=== PATIENT | male | born 1935 | race Caucasian/White ===

== ENCOUNTER 2016-12-28 17:38 | Inpatient (IN) | payer MEDICARE, OTHER ==
[~2016-12-28] VITALS: Ht 177.8 cm; Wt 89.4 kg
--- NOTE | 2016-12-28 18:59 | PHYS DOC ---
General Chief Complaint: PSYCH EVALUATION Stated Complaint: PSYCH EVAL Time Seen by MD: 17:59 Source: patient, half-way records Exam Limitations: clinical condition Problems: History of Present Illness Initial Comments Pt is 81/M to ED from [facility]. [place] records indicate for past week pt verbally and physically aggressive ( actually pinned a staff member to the wall during medication administration stating he didn't trust them), threatens to throw things/others out the window, thinks a female he doesn't know is his spouse. Pt meds have been increased, he' s had 1:1 observation, redirection, and speaking with pt . Sent to ED for medical clearance and [facility]. Pt denies pain or complaints. Pt alert/confused, attempts to elope redirects fairly easily in ED. Pt has DNR ED VS: 98, 71, 155/98, 96% RA Timing/Duration: 1 week Severity: severe Modifying Factors: improves with other Associated Symptoms: denies symptoms Allergies: Coded Allergies: tramadol (Verified Allergy, Intermediate, 12/28/16) Past Medical History Medical History: other (HTN, atrial fibrillation, dementia, nonobstructive reflux-associated chronic pyelonephritis, insomnia, "angry", CAD, HLP) Surgical History: other (CABG) Social History Smoker: non-smoker Alcohol: none Drugs: none Review of Systems All Other Systems: Reviewed and Negative (pt confused, accurate ROS unobtainable) Physical Exam General Appearance: no apparent distress Eyes: bilateral eye EOMI, bilateral eye PERRL, bilateral eye normal inspection Ear, Nose, Throat: normal ENT inspection Neck: supple Respiratory: normal breath sounds, no respiratory distress Cardiovascular: normal peripheral pulses, irregularly irregular Gastrointestinal: non tender, soft Extremities: non-tender, normal inspection Neurologic/Psychiatric: 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 1930: Medically clear [facility]. Departure Time of Disposition: 19:30 Disposition: 09 ADMITTED INPATIENT Diagnosis: dementia with behavior disorder Condition: STABLE Additional Instructions: [facility] Prater is accepting. AKASH HENRIQUEZ DO Dec 28, 2016 18:59
[2016-12-28 19:05] LABS: BASO # 0.1 x10^3/uL (0.0-0.2); BASO % 1 % (0-3); EOS # 0.1 x10^3/uL (0.0-0.7); EOS % 1 % (0-3); HEMATOCRIT 38.9 % (39.0-53.0); HEMOGLOBIN 13.2 g/dL (13.0-17.5); LYMPH # 2.5 x10^3/uL (1.0-4.8); LYMPH % 28 % (24-48); MEAN CORPUSCULAR HEMOGLOBIN 29 pg (25-35); MEAN CORPUSCULAR HGB CONC 34 g/dL (31-37); MEAN CORPUSCULAR VOLUME 85 fL (79-100); MONO # 0.8 x10^3/uL (0.0-1.1); MONO % 9 % (0-9); NEUT # 5.6 x10^3uL (1.8-7.7); NEUT % 61 % (31-73); PLATELET COUNT 196 x10^3/uL (140-400); RED CELL DISTRIBUTION WIDTH 13.8 % (11.5-14.5); WHITE BLOOD COUNT 9.1 x10^3/uL (4.0-11.0)
[2016-12-28 19:15] LABS: CALCIUM 9.1 mg/dL (8.5-10.1); CREATININE 1.1 mg/dL (0.7-1.3); GFR 64.6; POTASSIUM 3.8 mmol/L (3.5-5.1)
[2016-12-28 19:17] LABS: BARBITURATES NEG (NEG); BENZODIAZEPINES NEG (NEG); CANNABINOIDS NEG (NEG); COCAINE NEG (NEG); METHADONE NEG (NEG); OPIATES NEG (NEG); PHENCYCLIDINE NEG (NEG)
[2016-12-28 19:18] LABS: CLARITY,URINE CLEAR; COLOR,URINE YELLOW
[2016-12-28 19:19] LABS: BACTERIA,URINE 0 /HPF (0-FEW); BILIRUBIN,URINE NEG (NEG); GLUCOSE,URINE NEG (NEG); NITRITE,URINE NEG (NEG); RBC,URINE 0 /HPF (0-2); SQUAMOUS EPITHELIAL CELL,UR OCC /LPF; UROBILINOGEN,URINE 0.2 mg/dL (0.2 mg/dL); WBC,URINE OCC /HPF (0-4)
[2016-12-28 19:21] LABS: AMPHETAMINE/METHAMPHETAMINE NEG (NEG)
--- NOTE | 2016-12-28 20:29 | ACF ---
Admission Criteria Forms PSYCHIATRIC DISORDERS Clinical Indications for Inpatient Care (Place 'X' for any and all applicable criteria): Ongoing inpatient care may be needed for ANY ONE of the following(1)(2)(3)(4)(6) (7)(8): [ ]I. Danger to self or others not manageable at lower level of care. [ ]II. Grave disability (eg, inability to perform self care necessary at lower level of care) [ ]III. Agitation or inappropriate behavior interfering with care for primary condition (eg, attempting to discontinue lines or drains prematurely, unable to cooperate with respiratory care) [X ]IV. Severe disability or disorder indicated by ALL of the following: [X ]a) Severe behavioral health disorder-related symptoms or condition indicated by ANY ONE of the following: [X ]i) Severe problem with cognition, memory, judgment, or impulse control [ ]ii) Severe clinical manifestations (eg, hallucinations, delusions, other acute psychotic symptoms, malathi, extreme agitation or anxiety) [X ]b) Patient management at lower level of care is not feasible until acute intervention or modification is initiated. Extended stay beyond goal length of stay for the primary condition may be indicated when ANY ONE of the following is present: (1)(2)(3)(4): [ ]a) Patient is a danger to self or others and not manageable at lower level of care. [ ]b) Behavior crisis management, including physical or chemical restraints, is required and is not available at a lower level of care. [ ]c) Behavioral symptoms (e.g., agitation, somnolence, inappropriate behavior) are present, and are not manageable at a lower level of care. [ ]d) Patient cannot understand follow-up treatment and crisis plan. [ ]e) Provider and supports are not sufficiently available at lower level of care. [ ]f) Patient cannot participate (e.g., verify absence of plan for harm) and is in needed of monitoring. The original [facility] content created by [facility] has been revised. The portions of the content which have been revised are identified through the use of italic text or in bold, and [facility] has neither reviewed nor approved the modified material. All other unmodified content is copyright [facility] [employer]. Please see references footnoted in the original [facility] edition 2016 Admission Criteria Met?: Yes JUDY MEJIA Dec 28, 2016 20:29
[2016-12-28] MEDS ORDERED: MELA3TAB2 PO (20:48)
[2016-12-28] MEDS ORDERED: ALBU18HF IH (20:48)
[2016-12-28] MEDS ORDERED: POTA10CA53 PO (20:48)
[2016-12-28] MEDS ORDERED: ARIP5TAB13 PO (20:48)
[2016-12-28] MEDS ORDERED: MEMA10TA PO (20:48)
[2016-12-28] MEDS ORDERED: LISI-334 PO (20:48)
[2016-12-28] MEDS ORDERED: TORS20TA2 PO (20:48)
[2016-12-28] MEDS ORDERED: RANI150C PO (20:48)
[2016-12-28] MEDS ORDERED: AMLO2.5T2 PO (20:48)
[2016-12-28] MEDS ORDERED: NITR0.4T SL (20:48)
[2016-12-28] MEDS ORDERED: DONE10TA61 PO (20:48)
[2016-12-28] MEDS ORDERED: LORA1TAB PO (20:48)
[2016-12-28] MEDS ORDERED: SERT100T PO (20:48)
[2016-12-28] MEDS ORDERED: CARV12.52 PO (20:48)
[2016-12-28] MEDS ORDERED: MAG HYDROX/AL HYDROX/SIMETH 30 ML ORAL.SUSP PO PRN (21:15)
[2016-12-28] MEDS ORDERED: NITROGLYCERIN SUBLINGUAL 0.4 MG BOTTLE OF 25. SL PRN (21:15)
[2016-12-28] MEDS ORDERED: ALBUTEROL SULFATE 8GM INHALER. IH PRN (21:15)
[2016-12-28] MEDS ORDERED: METHYL SALICYLATE/MENTHOL TOPICAL OINTMENT 29GM TUBE. TP PRN (21:15)
[2016-12-28] MEDS ORDERED: MAGNESIUM HYDROXIDE 2,400 MG/30 ML ORAL.SUSP. PO PRN (21:15)
[2016-12-28] MEDS ORDERED: ALBUTEROL SULFATE 2.5 MG/3 ML NEBU. NEB PRN (21:30)
[2016-12-28] MEDS ORDERED: ARIPiprazole 5 MG TABLET PO SCH (22:00)
[2016-12-28] MEDS: DONEPEZIL HCL 10 MG TABLET PO SCH (22:15)
[2016-12-28] MEDS: FAMOTIDINE 20 MG TABLET PO SCH (22:15)
[2016-12-28] MEDS: MELATONIN 3 MG TABLET PO SCH (22:15)
[2016-12-28] MEDS: MEMANTINE 10 MG TABLET. PO SCH (22:15)
--- NOTE | 2016-12-28 23:33 | EKG ---
[address] [address] Test Date: 2016-12-28 Test Time: 18:05:13 Pat Name: BJORN WALTER Department: Room: [facility] Gender: M [employer] Operator: FABIAN : 1935 Requested By: AKASH HENRIQUEZ Order Number: [id number] Reading MD: Shar Scott Measurements Intervals [place] Rate: 70 P: AL: QRS: 20 QRSD: 108 T: -6 QT: 432 QTc: 470 Interpretive Statements PRIOR INFERIOR INFARCT ATRIAL FIBRILLATION WITH CONTROLLED VENTRICULAR RESPONSE Electronically Signed On 12-31-2016 10:01:26 CDT by Shar Scott
[2016-12-29 06:21] VITALS: BP 182/86
[2016-12-29] MEDS: amLODIPine BESYLATE 2.5 MG TABLET PO SCH (08:45)
[2016-12-29] MEDS: CARVEDILOL 12.5 MG TABLET PO SCH ×2 (08:45→17:09)
[2016-12-29] MEDS: SERTRALINE 100 MG TABLET. PO SCH (08:45)
[2016-12-29] MEDS: FAMOTIDINE 20 MG TABLET PO SCH ×2 (08:45→17:09)
[2016-12-29] MEDS: MEMANTINE 10 MG TABLET. PO SCH ×2 (08:45→20:30)
[2016-12-29] MEDS: POTASSIUM CHLORIDE 10 MEQ CAPSULE.ER. PO SCH (08:46)
[2016-12-29] MEDS: LISINOPRIL 20 MG TABLET PO SCH ×2 (08:46→20:30)
[2016-12-29] MEDS: TORSEMIDE 20 MG TABLET. PO SCH (08:46)
[2016-12-29 15:42] VITALS: BP 178/88
[2016-12-29] MEDS: LORazepam 1 MG TABLET PO PRN (17:21)
[2016-12-29 19:13] LABS: T3 TOTAL 88 ng/dL (71-180); THYROXINE 6.1 ug/dL (4.5-12.0)
[2016-12-29] MEDS: DONEPEZIL HCL 10 MG TABLET PO SCH (20:31)
[2016-12-29] MEDS: MELATONIN 3 MG TABLET PO SCH (20:31)
[2016-12-29] MEDS: QUEtiapine 25 MG TABLET. PO SCH (20:32)
--- NOTE | 2016-12-29 20:35 | PDOC ---
Exam Guru Demential Exam: Guru Note: Please also refer to the separate dictated note~for this date of service dictated separately.~Patient seen individually. Discussed the patient with Nursing staff reviewed the chart.~Reviewed interim history and current functioning. Reviewed vital signs,~Labs/ Radiology~and current medications noted below. Continue current treatment with the changes noted in the dictated addendum note Assessment: Vital Signs: Vital Signs Date Time Temp Pulse Resp B/P Pulse Ox O2 Delivery O2 Flow Rate FiO2 12/29/16 20:30 70 178/88 12/29/16 15:42 97.1 17 97 12/28/16 19:11 Room Air I&O Intake and Output 12/29/16 07:00 Intake Total 120 ml Balance 120 ml Intake Oral 120 ml Current Medications: Meds: Current Medications Acetaminophen (Tylenol) 650 mg PRN Q6HRS PRN PO MILD PAIN / TEMP; Start at 21:15 Multi-Ingredient Ointment (Analgesic [place]) 1 balod PRN QID PRN TP MUSCLE PAIN; Start 12/28/16 at 21:15 Al Hydroxide/Mg Hydroxide (Mylanta Plus Xs) 15 ml PRN AFTMEALHC PRN PO DYSPEPSIA; Start 12/28/16 at 21:15 Magnesium Hydroxide (Milk Of Magnesia) 2,400 mg PRN QHS PRN PO CONSTIPATION; Start 12/28/16 at 21:15 Aripiprazole (Abilify) 5 mg QHS PO Last administered on 12/28/16 22:15; Start 12/28/16 at 22:00; Stop 12/29/16 at 19:06; Status DC Donepezil HCl (Aricept) 10 mg QHS PO Last administered on 12/29/16 20:31; Start 12/28/16 at 22:00 Lorazepam (Ativan) 1 mg TID PRN PRN PO ANXIETY / AGITATION Last administered on 12/29/16 17:21; Start 12/28/16 at 21:15 Melatonin 3 mg QHS PO Last administered on 12/29/16 20:31; Start 12/28/16 at 22 :00 Memantine (Namenda) 10 mg BID PO Last administered on 12/29/16 20:30; Start at 22:00 Sertraline HCl (Zoloft) 100 mg DAILY PO Last administered on 12/29/16 08:45; Start 12/29/16 at 09:00 Albuterol Sulfate (Ventolin Hfa) 2 puff PRN Q4HRS PRN IH SHORTNESS OF BREATH; Start 12/28/16 at 21:15; Status UNV Amlodipine Besylate (Norvasc) 2.5 mg DAILY PO Last administered on 12/29/16 08: 45; Start 12/29/16 at 09:00 Carvedilol (Coreg) 12.5 mg BIDWMEALS PO Last administered on 12/29/16 17:09; Start 12/29/16 at 08:00 Lisinopril (Prinivil) 20 mg BID PO Last administered on 12/29/16 20:30; Start 12/29/16 at 09:00 Nitroglycerin (Nitrostat) 0.4 mg PRN Q5MIN PRN SL CHEST PAIN; Start 12/28/16 at 21:15 Potassium Chloride (Micro-K) 10 meq DAILY PO Last administered on 12/29/16 08: 46; Start 12/29/16 at 09:00 Torsemide (Demadex) 20 mg DAILY PO Last administered on 12/29/16 08:46; Start 12/29/16 at 09:00 Famotidine (Pepcid) 20 mg BIDBFRMEAL PO Last administered on 12/29/16 17:09; Start 12/28/16 at 22:00 Albuterol Sulfate (Ventolin) 2.5 mg PRN Q4HRS PRN NEB SHORTNESS OF BREATH; Start 12/28/16 at 21:30 Quetiapine Fumarate (SEROquel) 12.5 mg BID PO Last administered on 12/29/16 20: 32; Start 12/29/16 at 21:00 Active Scripts Active Reported Abilify (Aripiprazole) 5 Mg Tablet 5 Mg PO QHS Zoloft (Sertraline Hcl) 100 Mg Tablet 100 Mg PO DAILY Lorazepam 1 Mg Tablet 1 Mg PO TID PRN PRN Nitrostat (Nitroglycerin) 0.4 Mg Tab.subl 0.4 Mg SL PRN Q5MIN PRN May Repeat x 3 doses, Notify PCP if Chest pain is unresolved Ventolin Hfa Inhaler (Albuterol Sulfate) 18 Gm Hfa.aer.ad 2 Puff IH PRN Q4HRS PRN Ranitidine Hcl 150 Mg Capsule 150 Mg PO BIDBFRMEAL Klor-Con Sprinkle (Potassium Chloride) 10 Meq Capsule.er 10 Meq PO DAILY Torsemide 20 Mg Tablet 20 Mg PO DAILY Norvasc (Amlodipine Besylate) 2.5 Mg Tablet 2.5 Mg PO DAILY Namenda (Memantine Hcl) 10 Mg Tablet 10 Mg PO BID Carvedilol 12.5 Mg Tablet 12.5 Mg PO BID Lisinopril 20 Mg Tablet 20 Mg PO BID Melatonin 3 Mg Tablet 3 Mg PO QHS Aricept (Donepezil Hcl) 10 Mg Tablet 10 Mg PO QHS Diagnosis: Problems: (1) Dementia with behavioral disturbance WOO GALINDO MD December 29, 2016 20:35
[2016-12-30 06:23] VITALS: BP 152/84
[2016-12-30] MEDS: LISINOPRIL 20 MG TABLET PO SCH ×2 (08:27→20:07)
[2016-12-30] MEDS: SERTRALINE 100 MG TABLET. PO SCH (08:27)
[2016-12-30] MEDS: TORSEMIDE 20 MG TABLET. PO SCH (08:27)
[2016-12-30] MEDS: QUEtiapine 25 MG TABLET. PO SCH ×2 (08:27→20:07)
[2016-12-30] MEDS: FAMOTIDINE 20 MG TABLET PO SCH ×2 (08:27→16:07)
[2016-12-30] MEDS: amLODIPine BESYLATE 2.5 MG TABLET PO SCH (08:28)
[2016-12-30] MEDS: CARVEDILOL 12.5 MG TABLET PO SCH ×2 (08:29→16:07)
[2016-12-30] MEDS: MEMANTINE 10 MG TABLET. PO SCH ×2 (08:29→20:07)
[2016-12-30] MEDS: POTASSIUM CHLORIDE 10 MEQ CAPSULE.ER. PO SCH (08:32)
--- NOTE | 2016-12-30 10:08 | HP ---
ADMIT DATE: 12/29/2016 IDENTIFYING DATA: The patient is a 81-year-old male referred to us from [facility] by Dr. Riccardo Adhikari, his primary care physician on account of being verbally aggressive after the patient pinned a staff member to the wall during medication administration because he did not trust them. He was threatening to throw them out of the window, thinks a female patient is his . He has been increasingly agitated, aggressive, disruptive, dangerous, delusional, having failed outpatient psychiatric intervention. He is referred for inpatient psychiatric stabilization consequent to his dementia with delusions. CHIEF COMPLAINT: "I need to get out of here." The patient was banging the exit door, paranoid, delusional, restless, hyperverbal the evening of 12/29/2016 as I met with him. HISTORY OF PRESENT ILLNESS: The patient has a history of dementia, Alzheimer's vascular type. He has been residing at the [facility] for some time and has been increasingly paranoid, delusional recently as above with marked mood lability, dangerous behaviors which are extremely impulsive and explosive. No clear symptoms of bipolar disorder, suicidal or homicidal ideation other than as noted above. PAST PSYCHIATRIC HISTORY: As above. PAST MEDICAL HISTORY: Coronary artery disease, coronary artery bypass graft, hyperlipidemia, hypertension, atrial fibrillation, nonobstructive reflux with associated chronic pyelonephritis. ALLERGIES: Ultram. CODE STATUS: DNR. DIET: Regular, takes his medications whole, but probably need to be hidden. CURRENT PSYCHOTROPICS: Zoloft 100 mg a day, Abilify 5 mg a day, Aricept 10 mg a day, melatonin 3 mg at bedtime, Namenda 10 b.i.d., Ativan 1 mg t.i.d. p.r.n. anxiety. FAMILY HISTORY: Noncontributory. SOCIAL HISTORY: No alcohol, drug abuse, physical, sexual or elder abuse history is noted. Not known to be a perpetrator. MENTAL STATUS EXAMINATION: The patient was seen individually evening of 12/29/2016. He is oriented to himself, anxious, restless, delusional, suspicious, banging on the door. Insight, judgment, recent and remote memory, attention, concentration, fund of knowledge poor, consistent with his diagnosis. VITAL SIGNS: Temperature afebrile, BP 182/86, pulse 70, respirations 18, O2 sats 98%. IMPRESSION: Major neurocognitive disorder, Alzheimer, vascular with depression, delusion, behavioral disturbance; anxiety disorder, unspecified; impulse control disorder, unspecified. Rest diagnoses as above. PLAN: Admit to the geropsychiatry unit at [facility]. I will see the patient daily individually from a psychiatric standpoint, medical followup with Dr. Khan/Dr. Betancourt. We will go ahead and change the Abilify to Seroquel 12.5 mg twice a day. Maintain the rest of his psychotropics. Consider Depakote as a mood stabilizer and we will gradually reduce the Ativan p.r.n. once he stabilizes on the rest of his psychotropics. Further changes will be determined after baseline assessment. MAN Frederick GALINDO MD DR: JOCELYN/rhea JOB#: [id number] / [id number]
[2016-12-30] MEDS ORDERED: CHOLECALCIFEROL (VITAMIN D3) 50,000 UNIT CAPSULE PO SCH (12:00)
[2016-12-30] MEDS ORDERED: CYANOCOBALAMIN (VITAMIN B-12) 1,000 MCG/ML VIAL IM SCH (12:30)
--- NOTE | 2016-12-30 13:00 | HP ---
ADMIT DATE: 12/28/2016 REASON FOR ADMISSION TO SENIOR BEHAVIORAL UNIT: The patient is a 81-year-old male who came from [facility] where he had been admitted on 12/18/2016. Apparently, he has been verbally aggressive and pinned staff members to the wall during medical administration because he did not trust them; threatening to throw them out of the window and identifying another resident as his . He has had medication increased and placed one-on-one care and redirected. PAST MEDICAL HISTORY: Hypertension, atrial fibrillation, dementia, reflux, insomnia, irritability and anger, and mixed hyperlipidemia. He also has a history of coronary artery disease with history of bypass. ALLERGIES: TRAMADOL. MEDICATIONS: On 4:30 Ativan IM was ordered and remainder of his medications are not new. SOCIAL HISTORY: The patient was queried about social history. He states he has been living at this current house he lives in for last 3 months. The patient states he wears glasses. Smokes very little tobacco. No alcohol. 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 REVIEW OF SYSTEMS: The patient was queried in different ways about aches and pains, shortness of breath, chest pain, urinary or any type of discomfort and he denies. OBJECTIVE: VITAL SIGNS: Blood pressure 154/84, pulse 64, temperature 96.1, O2 sat 97% on room air, height 70 inches, and weight 195.1 pounds. GENERAL: A 81-year-old in no acute distress. The patient's vision is impaired. Without glasses he is 20/100. HEENT: TMs were intact. Nose is patent. Throat clear. NECK: Supple without adenopathy. There are no carotid bruits. LUNGS: Clear to auscultation. CARDIOVASCULAR: An irregular rhythm and rate. Slow rhythm however. ABDOMEN: Soft and nontender. EXTREMITIES: Without edema. NEUROLOGIC: As stated his vision is not good. Pupils were equal, round, and react to light. The patient could not follow extraocular muscle instructions. Facial muscles are intact. Tongue is midline. He has adequate gag. Shoulder shrug is normal. Event Staff is normal, could not really follow [id number] or rapid alternating movements. Reflexes are 2+/4. Mental status confused, but calm and cooperative. MUSCULOSKELETAL: His gait is somewhat unsteady. He does pass to get up and go test. LABORATORY DATA: Normal CBC, slightly low iron of 48, elevated hyperlipidemia, low vitamin B of 8.4, B12 368, and TSH 5.645. RPR nonreactive. ASSESSMENT: 1. Subclinical hypothyroidism. 2. Mild iron deficiency. 3. Hyperlipidemia. 4. Borderline low B12. Recent lecture I attended recommended treatment of a level less than 400. 5. Behavior disturbance, fall risk. PLAN: Treat his medical conditions. Replace his vitamin B12 and vitamin D and continue to monitor. NASIR PETIT DO DR: PAXTON/rhea JOB#: [id number] / [id number]
[2016-12-30] MEDS: CHOLECALCIFEROL (VITAMIN D3) 50,000 UNIT CAPSULE PO SCH (13:32)
[2016-12-30 15:51] VITALS: BP 158/83
[2016-12-30] MEDS: PRENATAL MULTIVITAMIN TABLET. PO SCH (16:07)
[2016-12-30] MEDS: MELATONIN 3 MG TABLET PO SCH (20:06)
[2016-12-30] MEDS: DONEPEZIL HCL 10 MG TABLET PO SCH (20:06)
[2016-12-30] MEDS: ATORVASTATIN CALCIUM 20 MG TABLET PO SCH (20:17)
--- NOTE | 2016-12-30 21:10 | PDOC ---
Exam Guru Demential Exam: Guru Note: Please also refer to the separate dictated note~for this date of service dictated separately.~Patient seen individually. Discussed the patient with Nursing staff reviewed the chart.~Reviewed interim history and current functioning. Reviewed vital signs,~Labs/ Radiology~and current medications noted below. Continue current treatment with the changes noted in the dictated addendum note Assessment: Vital Signs: Vital Signs Date Time Temp Pulse Resp B/P Pulse Ox O2 Delivery O2 Flow Rate FiO2 12/30/16 20:07 69 158/83 12/30/16 15:51 97.7 20 97 12/28/16 19:11 Room Air I&O Intake and Output 12/30/16 07:00 Intake Total 560 ml Balance 560 ml Intake Oral 560 ml # Voids 1 Current Medications: Meds: Current Medications Acetaminophen (Tylenol) 650 mg PRN Q6HRS PRN PO MILD PAIN / TEMP; Start at 21:15 Multi-Ingredient Ointment (Analgesic [place]) 1 baldo PRN QID PRN TP MUSCLE PAIN; Start 12/28/16 at 21:15 Al Hydroxide/Mg Hydroxide (Mylanta Plus Xs) 15 ml PRN AFTMEALHC PRN PO DYSPEPSIA; Start 12/28/16 at 21:15 Magnesium Hydroxide (Milk Of Magnesia) 2,400 mg PRN QHS PRN PO CONSTIPATION; Start 12/28/16 at 21:15 Aripiprazole (Abilify) 5 mg QHS PO Last administered on 12/28/16 22:15; Start 12/28/16 at 22:00; Stop 12/29/16 at 19:06; Status DC Donepezil HCl (Aricept) 10 mg QHS PO Last administered on 12/30/16 20:06; Start 12/28/16 at 22:00 Lorazepam (Ativan) 1 mg TID PRN PRN PO ANXIETY / AGITATION Last administered on 12/29/16 17:21; Start 12/28/16 at 21:15 Melatonin 3 mg QHS PO Last administered on 12/30/16 20:06; Start 12/28/16 at 22 :00 Memantine (Namenda) 10 mg BID PO Last administered on 12/30/16 20:07; Start at 22:00 Sertraline HCl (Zoloft) 100 mg DAILY PO Last administered on 12/30/16 08:27; Start 12/29/16 at 09:00 Albuterol Sulfate (Ventolin Hfa) 2 puff PRN Q4HRS PRN IH SHORTNESS OF BREATH; Start 12/28/16 at 21:15; Status UNV Amlodipine Besylate (Norvasc) 2.5 mg DAILY PO Last administered on 12/30/16 08: 28; Start 12/29/16 at 09:00 Carvedilol (Coreg) 12.5 mg BIDWMEALS PO Last administered on 12/30/16 16:07; Start 12/29/16 at 08:00 Lisinopril (Prinivil) 20 mg BID PO Last administered on 12/30/16 20:07; Start 12/29/16 at 09:00 Nitroglycerin (Nitrostat) 0.4 mg PRN Q5MIN PRN SL CHEST PAIN; Start 12/28/16 at 21:15 Potassium Chloride (Micro-K) 10 meq DAILY PO Last administered on 12/30/16 08: 32; Start 12/29/16 at 09:00 Torsemide (Demadex) 20 mg DAILY PO Last administered on 12/30/16 08:27; Start 12/29/16 at 09:00 Famotidine (Pepcid) 20 mg BIDBFRMEAL PO Last administered on 12/30/16 16:07; Start 12/28/16 at 22:00 Albuterol Sulfate (Ventolin) 2.5 mg PRN Q4HRS PRN NEB SHORTNESS OF BREATH; Start 12/28/16 at 21:30 Quetiapine Fumarate (SEROquel) 12.5 mg BID PO Last administered on 12/30/16 20: 07; Start 12/29/16 at 21:00 Prenat Multivit/ Regino Ramirez/Iron/Folic Ac (Multivitamin ) 1 tab DAILYBFRSUP PO Last administered on 12/30/16 16:07; Start 12/30/16 at 17:00 Vitamin D (Vitamin D3) 50,000 unit WEEKLY PO ; Start 12/30/16 at 12:00; Stop 12/30 at 12:10; Status DC Cyanocobalamin (Vitamin B-12) 1,000 mcg [id number] IM Last administered on 13:32; Start 12/30/16 at 12:30 Vitamin D (Vitamin D3) 50,000 unit WEEKLY PO Last administered on 12/30/16 13: 32; Start 12/30/16 at 12:30 Levothyroxine Sodium (Synthroid) 25 mcg DAILY07 PO ; Start 12/31/16 at 07:00 Atorvastatin Calcium (Lipitor) 20 mg QHS PO Last administered on 12/30/16 20:17 ; Start 12/30/16 at 21:00 Active Scripts Active Reported Abilify (Aripiprazole) 5 Mg Tablet 5 Mg PO QHS Zoloft (Sertraline Hcl) 100 Mg Tablet 100 Mg PO DAILY Lorazepam 1 Mg Tablet 1 Mg PO TID PRN PRN Nitrostat (Nitroglycerin) 0.4 Mg Tab.subl 0.4 Mg SL PRN Q5MIN PRN May Repeat x 3 doses, Notify PCP if Chest pain is unresolved Ventolin Hfa Inhaler (Albuterol Sulfate) 18 Gm Hfa.aer.ad 2 Puff IH PRN Q4HRS PRN Ranitidine Hcl 150 Mg Capsule 150 Mg PO BIDBFRMEAL Klor-Con Sprinkle (Potassium Chloride) 10 Meq Capsule.er 10 Meq PO DAILY Torsemide 20 Mg Tablet 20 Mg PO DAILY Norvasc (Amlodipine Besylate) 2.5 Mg Tablet 2.5 Mg PO DAILY Namenda (Memantine Hcl) 10 Mg Tablet 10 Mg PO BID Carvedilol 12.5 Mg Tablet 12.5 Mg PO BID Lisinopril 20 Mg Tablet 20 Mg PO BID Melatonin 3 Mg Tablet 3 Mg PO QHS Aricept (Donepezil Hcl) 10 Mg Tablet 10 Mg PO QHS Diagnosis: Problems: (1) Dementia with behavioral disturbance WOO GALINDO MD December 30, 2016 21:10
[2016-12-30] MEDS: LORazepam 1 MG TABLET PO PRN (22:49)
[2016-12-30] MEDS: ACETAMINOPHEN 325 MG TABLET PO PRN (22:50)
[2016-12-31] MEDS: LEVOTHYROXINE 25 MCG TABLET. PO SCH (05:55)
[2016-12-31 06:22] VITALS: BP 184/92
[2016-12-31] MEDS: POTASSIUM CHLORIDE 10 MEQ CAPSULE.ER. PO SCH (08:14)
[2016-12-31] MEDS: SERTRALINE 100 MG TABLET. PO SCH (08:15)
[2016-12-31] MEDS: amLODIPine BESYLATE 2.5 MG TABLET PO SCH (08:15)
[2016-12-31] MEDS: QUEtiapine 25 MG TABLET. PO SCH ×2 (08:15→20:07)
[2016-12-31] MEDS: MEMANTINE 10 MG TABLET. PO SCH ×2 (08:15→20:06)
[2016-12-31] MEDS: FAMOTIDINE 20 MG TABLET PO SCH ×2 (08:16→17:03)
[2016-12-31] MEDS: CARVEDILOL 12.5 MG TABLET PO SCH ×2 (08:16→17:04)
[2016-12-31] MEDS: LISINOPRIL 20 MG TABLET PO SCH ×2 (08:17→20:07)
[2016-12-31] MEDS: TORSEMIDE 20 MG TABLET. PO SCH (08:21)
[2016-12-31 15:38] VITALS: BP 156/81
[2016-12-31] MEDS: PRENATAL MULTIVITAMIN TABLET. PO SCH (17:03)
[2016-12-31] MEDS: ATORVASTATIN CALCIUM 20 MG TABLET PO SCH (20:06)
[2016-12-31] MEDS: MELATONIN 3 MG TABLET PO SCH (20:07)
[2016-12-31] MEDS: DONEPEZIL HCL 10 MG TABLET PO SCH (20:07)
--- NOTE | 2016-12-31 20:56 | PDOC ---
Exam Guru Demential Exam: Guru Note: Please also refer to the separate dictated note~for this date of service dictated separately.~Patient seen individually. Discussed the patient with Nursing staff reviewed the chart.~Reviewed interim history and current functioning. Reviewed vital signs,~Labs/ Radiology~and current medications noted below. Continue current treatment with the changes noted in the dictated addendum note Assessment: Vital Signs: Vital Signs Date Time Temp Pulse Resp B/P Pulse Ox O2 Delivery O2 Flow Rate FiO2 12/31/16 20:07 85 156/76 12/31/16 15:38 97.4 17 97 12/28/16 19:11 Room Air I&O Intake and Output 12/31/16 07:00 Intake Total 960 ml Balance 960 ml Intake Oral 960 ml # Voids 1 # Bowel Movements 1 Current Medications: Meds: Current Medications Acetaminophen (Tylenol) 650 mg PRN Q6HRS PRN PO MILD PAIN / TEMP Last administered on 12/30/16 22:50; Start 12/28/16 at 21:15 Multi-Ingredient Ointment (Analgesic [place]) 1 baldo PRN QID PRN TP MUSCLE PAIN; Start 12/28/16 at 21:15 Al Hydroxide/Mg Hydroxide (Mylanta Plus Xs) 15 ml PRN AFTMEALHC PRN PO DYSPEPSIA; Start 12/28/16 at 21:15 Magnesium Hydroxide (Milk Of Magnesia) 2,400 mg PRN QHS PRN PO CONSTIPATION; Start 12/28/16 at 21:15 Aripiprazole (Abilify) 5 mg QHS PO Last administered on 12/28/16 22:15; Start 12/28/16 at 22:00; Stop 12/29/16 at 19:06; Status DC Donepezil HCl (Aricept) 10 mg QHS PO Last administered on 12/31/16 20:07; Start 12/28/16 at 22:00 Lorazepam (Ativan) 1 mg TID PRN PRN PO ANXIETY / AGITATION Last administered on 12/30/16 22:49; Start 12/28/16 at 21:15 Melatonin 3 mg QHS PO Last administered on 12/31/16 20:07; Start 12/28/16 at 22 :00 Memantine (Namenda) 10 mg BID PO Last administered on 12/31/16 20:06; Start at 22:00 Sertraline HCl (Zoloft) 100 mg DAILY PO Last administered on 12/31/16 08:15; Start 12/29/16 at 09:00 Albuterol Sulfate (Ventolin Hfa) 2 puff PRN Q4HRS PRN IH SHORTNESS OF BREATH; Start 12/28/16 at 21:15; Status UNV Amlodipine Besylate (Norvasc) 2.5 mg DAILY PO Last administered on 12/31/16 08: 15; Start 12/29/16 at 09:00 Carvedilol (Coreg) 12.5 mg BIDWMEALS PO Last administered on 12/31/16 17:04; Start 12/29/16 at 08:00 Lisinopril (Prinivil) 20 mg BID PO Last administered on 12/31/16 20:07; Start 12/29/16 at 09:00 Nitroglycerin (Nitrostat) 0.4 mg PRN Q5MIN PRN SL CHEST PAIN; Start 12/28/16 at 21:15 Potassium Chloride (Micro-K) 10 meq DAILY PO Last administered on 12/31/16 08: 14; Start 12/29/16 at 09:00 Torsemide (Demadex) 20 mg DAILY PO Last administered on 12/31/16 08:21; Start 12/29/16 at 09:00 Famotidine (Pepcid) 20 mg BIDBFRMEAL PO Last administered on 12/31/16 17:03; Start 12/28/16 at 22:00 Albuterol Sulfate (Ventolin) 2.5 mg PRN Q4HRS PRN NEB SHORTNESS OF BREATH; Start 12/28/16 at 21:30 Quetiapine Fumarate (SEROquel) 12.5 mg BID PO Last administered on 12/31/16 20: 07; Start 12/29/16 at 21:00 Prenat Multivit/ [place]/Iron/Folic Ac (Multivitamin ) 1 tab DAILYBFRSUP PO Last administered on 12/31/16 17:03; Start 12/30/16 at 17:00 Vitamin D (Vitamin D3) 50,000 unit WEEKLY PO ; Start 12/30/16 at 12:00; Stop 12/30 at 12:10; Status DC Cyanocobalamin (Vitamin B-12) 1,000 mcg [id number] IM Last administered on 13:32; Start 12/30/16 at 12:30 Vitamin D (Vitamin D3) 50,000 unit WEEKLY PO Last administered on 12/30/16 13: 32; Start 12/30/16 at 12:30 Levothyroxine Sodium (Synthroid) 25 mcg DAILY07 PO Last administered on 05:55; Start 12/31/16 at 07:00 Atorvastatin Calcium (Lipitor) 20 mg QHS PO Last administered on 12/31/16 20:06 ; Start 12/30/16 at 21:00 Active Scripts Active Reported Abilify (Aripiprazole) 5 Mg Tablet 5 Mg PO QHS Zoloft (Sertraline Hcl) 100 Mg Tablet 100 Mg PO DAILY Lorazepam 1 Mg Tablet 1 Mg PO TID PRN PRN Nitrostat (Nitroglycerin) 0.4 Mg Tab.subl 0.4 Mg SL PRN Q5MIN PRN May Repeat x 3 doses, Notify PCP if Chest pain is unresolved Ventolin Hfa Inhaler (Albuterol Sulfate) 18 Gm Hfa.aer.ad 2 Puff IH PRN Q4HRS PRN Ranitidine Hcl 150 Mg Capsule 150 Mg PO BIDBFRMEAL Klor-Con Sprinkle (Potassium Chloride) 10 Meq Capsule.er 10 Meq PO DAILY Torsemide 20 Mg Tablet 20 Mg PO DAILY Norvasc (Amlodipine Besylate) 2.5 Mg Tablet 2.5 Mg PO DAILY Namenda (Memantine Hcl) 10 Mg Tablet 10 Mg PO BID Carvedilol 12.5 Mg Tablet 12.5 Mg PO BID Lisinopril 20 Mg Tablet 20 Mg PO BID Melatonin 3 Mg Tablet 3 Mg PO QHS Aricept (Donepezil Hcl) 10 Mg Tablet 10 Mg PO QHS Diagnosis: Problems: (1) Dementia with behavioral disturbance (2) Anxiety disorder (3) Dementia, vascular, with depression (4) Dementia, vascular, 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
--- NOTE | 2016-12-31 23:32 | PN ---
DATE: 12/30/2016 PSYCHIATRIC PROGRESS NOTE This is a late entry for 12/30/2016, covers elements not covered in my initial note. SUBJECTIVE: The patient remains confused per nursing report, pleasant, wandering in and out of other patient's room, exit seeking. No PRNs were given. REVIEW OF SYSTEMS: No CV, , pulmonary, eye, ENT system symptoms on review. Reliability poor. MENTAL STATUS EXAM: Oriented to himself. Insight, judgment, recent and remote memory, attention, concentration, fund of knowledge poor, consistent with his diagnosis. LABORATORY DATA: Reviewed. IMPRESSION: Major neurocognitive disorder, Alzheimer, vascular with depression, delusion, behavioral disturbance; anxiety disorder, unspecified; impulse control disorder, unspecified. PLAN: Maintain psychotropics mentioned in my initial note. Seroquel is at 12.5 b.i.d. We may need to increase this in due course. WOO GALINDO MD DR: JOCELYN/rhea JOB#: [id number] / [id number]
[2017-01-01] MEDS: LORazepam 1 MG TABLET PO PRN (02:56)
[2017-01-01] MEDS: LEVOTHYROXINE 25 MCG TABLET. PO SCH (07:00)
[2017-01-01] MEDS: TORSEMIDE 20 MG TABLET. PO SCH (08:45)
[2017-01-01] MEDS: FAMOTIDINE 20 MG TABLET PO SCH ×2 (08:46→16:14)
[2017-01-01] MEDS: MEMANTINE 10 MG TABLET. PO SCH ×2 (08:46→19:26)
[2017-01-01] MEDS: POTASSIUM CHLORIDE 10 MEQ CAPSULE.ER. PO SCH (08:46)
[2017-01-01] MEDS: amLODIPine BESYLATE 2.5 MG TABLET PO SCH (08:46)
[2017-01-01] MEDS: CARVEDILOL 12.5 MG TABLET PO SCH ×2 (08:47→16:14)
[2017-01-01] MEDS: SERTRALINE 100 MG TABLET. PO SCH (08:47)
[2017-01-01] MEDS: QUEtiapine 25 MG TABLET. PO SCH ×2 (08:48→19:27)
[2017-01-01] MEDS: LISINOPRIL 20 MG TABLET PO SCH ×2 (08:48→19:26)
[2017-01-01 15:48] VITALS: BP 144/71
[2017-01-01] MEDS: PRENATAL MULTIVITAMIN TABLET. PO SCH (16:14)
[2017-01-01] MEDS: ATORVASTATIN CALCIUM 20 MG TABLET PO SCH (19:25)
[2017-01-01] MEDS: MELATONIN 3 MG TABLET PO SCH (19:26)
[2017-01-01] MEDS: DONEPEZIL HCL 10 MG TABLET PO SCH (19:26)
[2017-01-01] MEDS: MIRTAZAPINE 7.5 MG TABLET. PO SCH (19:31)
--- NOTE | 2017-01-01 20:16 | PDOC ---
Exam Guru Demential Exam: Guru Note: Please also refer to the separate dictated note~for this date of service dictated separately.~Patient seen individually. Discussed the patient with Nursing staff reviewed the chart.~Reviewed interim history and current functioning. Reviewed vital signs,~Labs/ Radiology~and current medications noted below. Continue current treatment with the changes noted in the dictated addendum note Assessment: Vital Signs: Vital Signs Date Time Temp Pulse Resp B/P (MAP) Pulse Ox O2 Delivery O2 Flow Rate FiO2 01/01/17 19:26 74 114/69 01/01/17 15:48 97.2 18 98 12/28/16 19:11 Room Air I&O Intake and Output 01/01/17 07:00 Intake Total 1200 ml Balance 1200 ml Intake Oral 1200 ml Current Medications: Meds: Current Medications Acetaminophen (Tylenol) 650 mg PRN Q6HRS PRN PO MILD PAIN / TEMP Last administered on 12/30/16 22:50; Start 12/28/16 at 21:15 Multi-Ingredient Ointment (Analgesic [place]) 1 baldo PRN QID PRN TP MUSCLE PAIN; Start 12/28/16 at 21:15 Al Hydroxide/Mg Hydroxide (Mylanta Plus Xs) 15 ml PRN AFTMEALHC PRN PO DYSPEPSIA; Start 12/28/16 at 21:15 Magnesium Hydroxide (Milk Of Magnesia) 2,400 mg PRN QHS PRN PO CONSTIPATION; Start 12/28/16 at 21:15 Aripiprazole (Abilify) 5 mg QHS PO Last administered on 12/28/16 22:15; Start 12/28/16 at 22:00; Stop 12/29/16 at 19:06; Status DC Donepezil HCl (Aricept) 10 mg QHS PO Last administered on 01/01/17 19:26; Start 12/28/16 at 22:00 Lorazepam (Ativan) 1 mg TID PRN PRN PO ANXIETY / AGITATION Last administered on 01/01/17 02:56; Start 12/28/16 at 21:15 Melatonin 3 mg QHS PO Last administered on 01/01/17 19:26; Start 12/28/16 at 22 :00 Memantine (Namenda) 10 mg BID PO Last administered on 01/01/17 19:26; Start at 22:00 Sertraline HCl (Zoloft) 100 mg DAILY PO Last administered on 01/01/17 08:47; Start 12/29/16 at 09:00 Albuterol Sulfate (Ventolin Hfa) 2 puff PRN Q4HRS PRN IH SHORTNESS OF BREATH; Start 12/28/16 at 21:15; Status UNV Amlodipine Besylate (Norvasc) 2.5 mg DAILY PO Last administered on 01/01/17 08: 46; Start 12/29/16 at 09:00 Carvedilol (Coreg) 12.5 mg BIDWMEALS PO Last administered on 01/01/17 16:14; Start 12/29/16 at 08:00 Lisinopril (Prinivil) 20 mg BID PO Last administered on 01/01/17 19:26; Start 12/29/16 at 09:00 Nitroglycerin (Nitrostat) 0.4 mg PRN Q5MIN PRN SL CHEST PAIN; Start 12/28/16 at 21:15 Potassium Chloride (Micro-K) 10 meq DAILY PO Last administered on 01/01/17 08: 46; Start 12/29/16 at 09:00 Torsemide (Demadex) 20 mg DAILY PO Last administered on 01/01/17 08:45; Start 12/29/16 at 09:00 Famotidine (Pepcid) 20 mg BIDBFRMEAL PO Last administered on 01/01/17 16:14; Start 12/28/16 at 22:00 Albuterol Sulfate (Ventolin) 2.5 mg PRN Q4HRS PRN NEB SHORTNESS OF BREATH; Start 12/28/16 at 21:30 Quetiapine Fumarate (SEROquel) 12.5 mg BID PO Last administered on 01/01/17 19: 27; Start 12/29/16 at 21:00 Prenat Multivit/ [employer]/Iron/Folic Ac (Multivitamin ) 1 tab DAILYBFRSUP PO Last administered on 01/01/17 16:14; Start 12/30/16 at 17:00 Vitamin D (Vitamin D3) 50,000 unit WEEKLY PO ; Start 12/30/16 at 12:00; Stop 12/30 at 12:10; Status DC Cyanocobalamin (Vitamin B-12) 1,000 mcg [id number] IM Last administered on 13:32; Start 12/30/16 at 12:30 Vitamin D (Vitamin D3) 50,000 unit WEEKLY PO Last administered on 12/30/16 13: 32; Start 12/30/16 at 12:30 Levothyroxine Sodium (Synthroid) 25 mcg DAILY07 PO Last administered on 05:55; Start 12/31/16 at 07:00 Atorvastatin Calcium (Lipitor) 20 mg QHS PO Last administered on 01/01/17 19:25 ; Start 12/30/16 at 21:00 Mirtazapine (Remeron) 7.5 mg QHS PO Last administered on 01/01/17 19:31; Start 01/01/17 at 21:00 Active Scripts Active Reported Abilify (Aripiprazole) 5 Mg Tablet 5 Mg PO QHS Zoloft (Sertraline Hcl) 100 Mg Tablet 100 Mg PO DAILY Lorazepam 1 Mg Tablet 1 Mg PO TID PRN PRN Nitrostat (Nitroglycerin) 0.4 Mg Tab.subl 0.4 Mg SL PRN Q5MIN PRN May Repeat x 3 doses, Notify PCP if Chest pain is unresolved Ventolin Hfa Inhaler (Albuterol Sulfate) 18 Gm Hfa.aer.ad 2 Puff IH PRN Q4HRS PRN Ranitidine Hcl 150 Mg Capsule 150 Mg PO BIDBFRMEAL Klor-Con Sprinkle (Potassium Chloride) 10 Meq Capsule.er 10 Meq PO DAILY Torsemide 20 Mg Tablet 20 Mg PO DAILY Norvasc (Amlodipine Besylate) 2.5 Mg Tablet 2.5 Mg PO DAILY Namenda (Memantine Hcl) 10 Mg Tablet 10 Mg PO BID Carvedilol 12.5 Mg Tablet 12.5 Mg PO BID Lisinopril 20 Mg Tablet 20 Mg PO BID Melatonin 3 Mg Tablet 3 Mg PO QHS Aricept (Donepezil Hcl) 10 Mg Tablet 10 Mg PO QHS Diagnosis: Problems: (1) Dementia with behavioral disturbance (2) Anxiety disorder (3) Dementia, vascular, with depression (4) Dementia, vascular, 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
[2017-01-02] MEDS: LEVOTHYROXINE 25 MCG TABLET. PO SCH (05:14)
[2017-01-02 06:29] VITALS: BP 190/75
[2017-01-02] MEDS: POTASSIUM CHLORIDE 10 MEQ CAPSULE.ER. PO SCH (07:58)
[2017-01-02] MEDS: SERTRALINE 100 MG TABLET. PO SCH (07:58)
[2017-01-02] MEDS: LISINOPRIL 20 MG TABLET PO SCH ×2 (07:59→20:10)
[2017-01-02] MEDS: MEMANTINE 10 MG TABLET. PO SCH ×2 (07:59→20:09)
[2017-01-02] MEDS: amLODIPine BESYLATE 2.5 MG TABLET PO SCH (07:59)
[2017-01-02] MEDS: CARVEDILOL 12.5 MG TABLET PO SCH ×2 (07:59→16:54)
[2017-01-02] MEDS: FAMOTIDINE 20 MG TABLET PO SCH ×2 (07:59→16:54)
[2017-01-02] MEDS: QUEtiapine 25 MG TABLET. PO SCH ×2 (07:59→20:09)
[2017-01-02] MEDS: TORSEMIDE 20 MG TABLET. PO SCH (08:00)
[2017-01-02 15:45] VITALS: BP 159/84
[2017-01-02] MEDS: PRENATAL MULTIVITAMIN TABLET. PO SCH (16:54)
--- NOTE | 2017-01-02 20:06 | PDOC ---
Exam Guru Demential Exam: Guru Note: Please also refer to the separate dictated note~for this date of service dictated separately.~Patient seen individually. Discussed the patient with Nursing staff reviewed the chart.~Reviewed interim history and current functioning. Reviewed vital signs,~Labs/ Radiology~and current medications noted below. Continue current treatment with the changes noted in the dictated addendum note Assessment: Vital Signs: Vital Signs Date Time Temp Pulse Resp B/P (MAP) Pulse Ox O2 Delivery O2 Flow Rate FiO2 01/02/17 16:54 77 159/84 01/02/17 15:45 97.0 18 98 12/28/16 19:11 Room Air I&O Intake and Output 01/02/17 07:00 Intake Total 1040 ml Balance 1040 ml Intake Oral 1040 ml # Voids 2 Current Medications: Meds: Current Medications Acetaminophen (Tylenol) 650 mg PRN Q6HRS PRN PO MILD PAIN / TEMP Last administered on 12/30/16 22:50; Start 12/28/16 at 21:15 Multi-Ingredient Ointment (Analgesic [place]) 1 baldo PRN QID PRN TP MUSCLE PAIN; Start 12/28/16 at 21:15 Al Hydroxide/Mg Hydroxide (Mylanta Plus Xs) 15 ml PRN AFTMEALHC PRN PO DYSPEPSIA; Start 12/28/16 at 21:15 Magnesium Hydroxide (Milk Of Magnesia) 2,400 mg PRN QHS PRN PO CONSTIPATION; Start 12/28/16 at 21:15 Aripiprazole (Abilify) 5 mg QHS PO Last administered on 12/28/16 22:15; Start 12/28/16 at 22:00; Stop 12/29/16 at 19:06; Status DC Donepezil HCl (Aricept) 10 mg QHS PO Last administered on 01/01/17 19:26; Start 12/28/16 at 22:00 Lorazepam (Ativan) 1 mg TID PRN PRN PO ANXIETY / AGITATION Last administered on 01/01/17 02:56; Start 12/28/16 at 21:15 Melatonin 3 mg QHS PO Last administered on 01/01/17 19:26; Start 12/28/16 at 22 :00 Memantine (Namenda) 10 mg BID PO Last administered on 01/02/17 07:59; Start at 22:00 Sertraline HCl (Zoloft) 100 mg DAILY PO Last administered on 01/02/17 07:58; Start 12/29/16 at 09:00 Albuterol Sulfate (Ventolin Hfa) 2 puff PRN Q4HRS PRN IH SHORTNESS OF BREATH; Start 12/28/16 at 21:15; Status UNV Amlodipine Besylate (Norvasc) 2.5 mg DAILY PO Last administered on 01/02/17 07: 59; Start 12/29/16 at 09:00; Stop 01/02/17 at 13:01; Status DC Carvedilol (Coreg) 12.5 mg BIDWMEALS PO Last administered on 01/02/17 16:54; Start 12/29/16 at 08:00 Lisinopril (Prinivil) 20 mg BID PO Last administered on 01/02/17 07:59; Start 12/29/16 at 09:00 Nitroglycerin (Nitrostat) 0.4 mg PRN Q5MIN PRN SL CHEST PAIN; Start 12/28/16 at 21:15 Potassium Chloride (Micro-K) 10 meq DAILY PO Last administered on 01/02/17 07: 58; Start 12/29/16 at 09:00 Torsemide (Demadex) 20 mg DAILY PO Last administered on 01/02/17 08:00; Start 12/29/16 at 09:00 Famotidine (Pepcid) 20 mg BIDBFRMEAL PO Last administered on 01/02/17 16:54; Start 12/28/16 at 22:00 Albuterol Sulfate (Ventolin) 2.5 mg PRN Q4HRS PRN NEB SHORTNESS OF BREATH; Start 12/28/16 at 21:30 Quetiapine Fumarate (SEROquel) 12.5 mg BID PO Last administered on 01/02/17 07: 59; Start 12/29/16 at 21:00 Prenat Multivit/ [place]/Iron/Folic Ac (Multivitamin ) 1 tab DAILYBFRSUP PO Last administered on 01/02/17 16:54; Start 12/30/16 at 17:00 Vitamin D (Vitamin D3) 50,000 unit WEEKLY PO ; Start 12/30/16 at 12:00; Stop 12/30 at 12:10; Status DC Cyanocobalamin (Vitamin B-12) 1,000 mcg [id number] IM Last administered on 13:32; Start 12/30/16 at 12:30 Vitamin D (Vitamin D3) 50,000 unit WEEKLY PO Last administered on 12/30/16 13: 32; Start 12/30/16 at 12:30 Levothyroxine Sodium (Synthroid) 25 mcg DAILY07 PO Last administered on 05:14; Start 12/31/16 at 07:00 Atorvastatin Calcium (Lipitor) 20 mg QHS PO Last administered on 01/01/17 19:25 ; Start 12/30/16 at 21:00 Mirtazapine (Remeron) 7.5 mg QHS PO Last administered on 01/01/17 19:31; Start 01/01/17 at 21:00 Amlodipine Besylate (Norvasc) 5 mg DAILY PO ; Start 01/03/17 at 09:00 Active Scripts Active Reported Abilify (Aripiprazole) 5 Mg Tablet 5 Mg PO QHS Zoloft (Sertraline Hcl) 100 Mg Tablet 100 Mg PO DAILY Lorazepam 1 Mg Tablet 1 Mg PO TID PRN PRN Nitrostat (Nitroglycerin) 0.4 Mg Tab.subl 0.4 Mg SL PRN Q5MIN PRN May Repeat x 3 doses, Notify PCP if Chest pain is unresolved Ventolin Hfa Inhaler (Albuterol Sulfate) 18 Gm Hfa.aer.ad 2 Puff IH PRN Q4HRS PRN Ranitidine Hcl 150 Mg Capsule 150 Mg PO BIDBFRMEAL Klor-Con Sprinkle (Potassium Chloride) 10 Meq Capsule.er 10 Meq PO DAILY Torsemide 20 Mg Tablet 20 Mg PO DAILY Norvasc (Amlodipine Besylate) 2.5 Mg Tablet 2.5 Mg PO DAILY Namenda (Memantine Hcl) 10 Mg Tablet 10 Mg PO BID Carvedilol 12.5 Mg Tablet 12.5 Mg PO BID Lisinopril 20 Mg Tablet 20 Mg PO BID Melatonin 3 Mg Tablet 3 Mg PO QHS Aricept (Donepezil Hcl) 10 Mg Tablet 10 Mg PO QHS Diagnosis: Problems: (1) Dementia with behavioral disturbance (2) Anxiety disorder (3) Dementia, vascular, with depression (4) Dementia, vascular, with 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
[2017-01-02] MEDS: DONEPEZIL HCL 10 MG TABLET PO SCH (20:09)
[2017-01-02] MEDS: MIRTAZAPINE 7.5 MG TABLET. PO SCH (20:09)
[2017-01-02] MEDS: ATORVASTATIN CALCIUM 20 MG TABLET PO SCH (20:09)
[2017-01-02] MEDS: MELATONIN 3 MG TABLET PO SCH (20:09)
--- NOTE | 2017-01-03 01:11 | PN ---
DATE: 12/31/2016 This late entry for 12/31/2016 covers elements not covered in my initial note. SUBJECTIVE: The patient remains confused, otherwise, pleasant, less agitated. The previous evening, he was trying to exit with another demented patient, calmer during the day of 12/31/2016. REVIEW OF SYSTEMS: No CV, , pulmonary, eye, ENT system symptoms on review. Reliability poor. MENTAL STATUS EXAM: Oriented to himself. Insight, judgment, recent and remote memory, attention, concentration, fund of knowledge poor, consistent with his diagnosis mentioned in my initial note. PLAN: Continue current psychotropics mentioned in my initial note. May need to adjust further as clinically indicated including increasing the Seroquel or considering Depakote as a mood stabilizer. MAN Frederick GALINDO MD DR: JOCELYN/rhea JOB#: [id number] / [id number]
--- NOTE | 2017-01-03 01:22 | PN ---
DATE: 01/01/2017 PSYCHIATRIC PROGRESS NOTE This is a late entry for 01/01/2017, covers elements not covered in my initial note. SUBJECTIVE: The patient was staffed at a lengthy treatment team meeting with the entire team and the patient's , Juan Ramon and Anabel from the detention attended the conference. Reviewed the patient's history, diagnosis, medications, discharge, aftercare plans. Appetite is about 90%, sleeping about 5 hours. He is confused, wandering, exit seeking, delusional, believes someone is taking his debit card and spending his money. REVIEW OF SYSTEMS: No CV, , eye, ENT or pulmonary system symptoms on review. Reliability poor. MENTAL STATUS EXAM: Oriented to himself. Insight, judgment, recent and remote memory, attention, concentration, fund of knowledge poor, consistent with his diagnosis mentioned in my initial note. DIAGNOSES: Major neurocognitive disorder, Alzheimer, vascular with depression, delusion, behavioral disturbance. Rest unchanged. PLAN: Continue current psychotropics, may need to increase Seroquel. If agitation resurfaces start Remeron 7.5 mg at bedtime. MAN Frederick GALINDO MD DR: JOCELYN/rhea JOB#: [id number] / [id number]
[2017-01-03] MEDS: LEVOTHYROXINE 25 MCG TABLET. PO SCH (04:05)
[2017-01-03] MEDS: LORazepam 1 MG TABLET PO PRN ×2 (04:06→16:31)
[2017-01-03 06:26] VITALS: BP 162/90
[2017-01-03] MEDS: QUEtiapine 25 MG TABLET. PO SCH ×2 (07:34→20:53)
[2017-01-03] MEDS: TORSEMIDE 20 MG TABLET. PO SCH (07:34)
[2017-01-03] MEDS: CARVEDILOL 12.5 MG TABLET PO SCH ×2 (07:35→16:32)
[2017-01-03] MEDS: SERTRALINE 100 MG TABLET. PO SCH (07:35)
[2017-01-03] MEDS: POTASSIUM CHLORIDE 10 MEQ CAPSULE.ER. PO SCH (07:35)
[2017-01-03] MEDS: LISINOPRIL 20 MG TABLET PO SCH ×2 (07:35→20:53)
[2017-01-03] MEDS: MEMANTINE 10 MG TABLET. PO SCH ×2 (07:36→20:52)
[2017-01-03] MEDS: FAMOTIDINE 20 MG TABLET PO SCH ×2 (07:36→16:31)
[2017-01-03] MEDS: amLODIPine BESYLATE 5 MG TABLET PO SCH (07:37)
[2017-01-03 08:17] LABS: BASO # 0.1 x10^3/uL (0.0-0.2); BASO % 1 % (0-3); EOS % 0 % (0-3); HEMATOCRIT 39.6 % (39.0-53.0); HEMOGLOBIN 13.3 g/dL (13.0-17.5); LYMPH # 2.2 x10^3/uL (1.0-4.8); LYMPH % 16 % (24-48); MEAN CORPUSCULAR HEMOGLOBIN 28 pg (25-35); MEAN CORPUSCULAR HGB CONC 34 g/dL (31-37); MEAN CORPUSCULAR VOLUME 84 fL (79-100); MONO % 7 % (0-9); NEUT % 77 % (31-73); PLATELET COUNT 216 x10^3/uL (140-400); WHITE BLOOD COUNT 14.4 x10^3/uL (4.0-11.0)
[2017-01-03 08:21] LABS: ALBUMIN/GLOBULIN RATIO 1.1 (1.0-1.7); CALCIUM 9.6 mg/dL (8.5-10.1); CREATININE 1.2 mg/dL (0.7-1.3); GFR 58.4; POTASSIUM 3.5 mmol/L (3.5-5.1); TOTAL BILIRUBIN 0.5 mg/dL (0.2-1.0); TOTAL PROTEIN 7.6 g/dL (6.4-8.2)
[2017-01-03 08:55] LABS: % BANDS 1 % (0-9); % LYMPHS 14 % (24-48); % MONOS 11 % (0-10); % SEGS 74 % (35-66)
[2017-01-03 08:56] LABS: PLT ESTIMATE ADEQUATE (ADEQUATE)
[2017-01-03 16:06] VITALS: BP 149/95
[2017-01-03] MEDS: PRENATAL MULTIVITAMIN TABLET. PO SCH (16:31)
--- NOTE | 2017-01-03 19:03 | PDOC ---
Exam Guru Demential Exam: Guru Note: Please also refer to the separate dictated note~for this date of service dictated separately.~Patient seen individually. Discussed the patient with Nursing staff reviewed the chart.~Reviewed interim history and current functioning. Reviewed vital signs,~Labs/ Radiology~and current medications noted below. Continue current treatment with the changes noted in the dictated addendum note Assessment: Vital Signs: Vital Signs Date Time Temp Pulse Resp B/P (MAP) Pulse Ox O2 Delivery O2 Flow Rate FiO2 01/03/17 16:32 71 149/95 01/03/17 16:06 98.5 16 95 12/28/16 19:11 Room Air I&O Intake and Output 01/03/17 07:00 Intake Total 840 ml Balance 840 ml Intake Oral 840 ml # Voids 2 # Bowel Movements 1 Labs: Laboratory Tests Test 01/03/17 07:46 White Blood Count 14.4 x10^3/uL (4.0-11.0) #H Red Blood Count 4.70 x10^6/uL (4.30-5.70) Hemoglobin 13.3 g/dL (13.0-17.5) Hematocrit 39.6 % (39.0-53.0) Mean Corpuscular Volume 84 fL (79-100) Mean Corpuscular Hemoglobin 28 pg (25-35) Mean Corpuscular Hemoglobin Concent 34 g/dL (31-37) Red Cell Distribution Width 14.0 % (11.5-14.5) Platelet Count 216 x10^3/uL (140-400) Neutrophils (%) (Auto) 77 % (31-73) H Lymphocytes (%) (Auto) 16 % (24-48) L Monocytes (%) (Auto) 7 % (0-9) Eosinophils (%) (Auto) 0 % (0-3) Basophils (%) (Auto) 1 % (0-3) Neutrophils # (Auto) 11.0 x10^3uL (1.8-7.7) H Lymphocytes # (Auto) 2.2 x10^3/uL (1.0-4.8) Monocytes # (Auto) 1.0 x10^3/uL (0.0-1.1) Eosinophils # (Auto) 0.0 x10^3/uL (0.0-0.7) Basophils # (Auto) 0.1 x10^3/uL (0.0-0.2) Segmented Neutrophils % 74 % (35-66) H Band Neutrophils % 1 % (0-9) Lymphocytes % 14 % (24-48) L Monocytes % 11 % (0-10) H Platelet Estimate Adequate (ADEQUATE) Sodium Level 146 mmol/L (136-145) H Potassium Level 3.5 mmol/L (3.5-5.1) Chloride Level 109 mmol/L (98-107) H Carbon Dioxide Level 29 mmol/L (21-32) Anion Gap 8 (6-14) Blood Urea Nitrogen 18 mg/dL (8-26) Creatinine 1.2 mg/dL (0.7-1.3) Estimated GFR (Cockcroft-Gault) 58.4 BUN/Creatinine Ratio 15 (6-20) Glucose Level 100 mg/dL (70-99) H Calcium Level 9.6 mg/dL (8.5-10.1) Magnesium Level 2.4 mg/dL (1.8-2.4) Total Bilirubin 0.5 mg/dL (0.2-1.0) Aspartate Amino Transferase (AST) 17 U/L (15-37) Alanine Aminotransferase (ALT) 22 U/L (16-63) Alkaline Phosphatase 83 U/L (46-116) Total Protein 7.6 g/dL (6.4-8.2) Albumin 4.0 g/dL (3.4-5.0) Albumin/Globulin Ratio 1.1 (1.0-1.7) Current Medications: Meds: Current Medications Acetaminophen (Tylenol) 650 mg PRN Q6HRS PRN PO MILD PAIN / TEMP Last administered on 12/30/16t 22:50; Start 12/28/16 at 21:15 Multi-Ingredient Ointment (Analgesic [place]) 1 baldo PRN QID PRN TP MUSCLE PAIN; Start 12/28/16 at 21:15 Al Hydroxide/Mg Hydroxide (Mylanta Plus Xs) 15 ml PRN AFTMEALHC PRN PO DYSPEPSIA; Start 12/28/16 at 21:15 Magnesium Hydroxide (Milk Of Magnesia) 2,400 mg PRN QHS PRN PO CONSTIPATION; Start 12/28/16 at 21:15 Aripiprazole (Abilify) 5 mg QHS PO Last administered on 12/28/16 22:15; Start 12/28/16 at 22:00; Stop 12/29/16 at 19:06; Status DC Donepezil HCl (Aricept) 10 mg QHS PO Last administered on 01/02/17 20:09; Start 12/28/16 at 22:00 Lorazepam (Ativan) 1 mg TID PRN PRN PO ANXIETY / AGITATION Last administered on 01/03/17 16:31; Start 12/28/16 at 21:15 Melatonin 3 mg QHS PO Last administered on 01/02/17 20:09; Start 12/28/16 at 22 :00 Memantine (Namenda) 10 mg BID PO Last administered on 01/03/17 07:36; Start at 22:00 Sertraline HCl (Zoloft) 100 mg DAILY PO Last administered on 01/03/17 07:35; Start 12/29/16 at 09:00 Albuterol Sulfate (Ventolin Hfa) 2 puff PRN Q4HRS PRN IH SHORTNESS OF BREATH; Start 12/28/16 at 21:15; Status UNV Amlodipine Besylate (Norvasc) 2.5 mg DAILY PO Last administered on 01/02/17 07: 59; Start 12/29/16 at 09:00; Stop 01/02/17 at 13:01; Status DC Carvedilol (Coreg) 12.5 mg BIDWMEALS PO Last administered on 01/03/17 16:32; Start 12/29/16 at 08:00 Lisinopril (Prinivil) 20 mg BID PO Last administered on 01/03/17 07:35; Start 12/29/16 at 09:00 Nitroglycerin (Nitrostat) 0.4 mg PRN Q5MIN PRN SL CHEST PAIN; Start 12/28/16 at 21:15 Potassium Chloride (Micro-K) 10 meq DAILY PO Last administered on 01/03/17 07: 35; Start 12/29/16 at 09:00 Torsemide (Demadex) 20 mg DAILY PO Last administered on 01/03/17 07:34; Start 12/29/16 at 09:00 Famotidine (Pepcid) 20 mg BIDBFRMEAL PO Last administered on 01/03/17 16:31; Start 12/28/16 at 22:00 Albuterol Sulfate (Ventolin) 2.5 mg PRN Q4HRS PRN NEB SHORTNESS OF BREATH; Start 12/28/16 at 21:30 Quetiapine Fumarate (SEROquel) 12.5 mg BID PO Last administered on 01/03/17 07: 34; Start 12/29/16 at 21:00 Prenat Multivit/ [place]/Iron/Folic Ac (Multivitamin ) 1 tab DAILYBFRSUP PO Last administered on 01/03/17 16:31; Start 12/30/16 at 17:00 Vitamin D (Vitamin D3) 50,000 unit WEEKLY PO ; Start 12/30/16 at 12:00; Stop 12/30 at 12:10; Status DC Cyanocobalamin (Vitamin B-12) 1,000 mcg [id number] IM Last administered on 13:32; Start 12/30/16 at 12:30 Vitamin D (Vitamin D3) 50,000 unit WEEKLY PO Last administered on 12/30/16 13: 32; Start 12/30/16 at 12:30 Levothyroxine Sodium (Synthroid) 25 mcg DAILY07 PO Last administered on 04:05; Start 12/31/16 at 07:00 Atorvastatin Calcium (Lipitor) 20 mg QHS PO Last administered on 01/02/17 20:09 ; Start 12/30/16 at 21:00 Mirtazapine (Remeron) 7.5 mg QHS PO Last administered on 01/02/17 20:09; Start 01/01/17 at 21:00 Amlodipine Besylate (Norvasc) 5 mg DAILY PO Last administered on 01/03/17 07:37 ; Start 01/03/17 at 09:00 Active Scripts Active Reported Abilify (Aripiprazole) 5 Mg Tablet 5 Mg PO QHS Zoloft (Sertraline Hcl) 100 Mg Tablet 100 Mg PO DAILY Lorazepam 1 Mg Tablet 1 Mg PO TID PRN PRN Nitrostat (Nitroglycerin) 0.4 Mg Tab.subl 0.4 Mg SL PRN Q5MIN PRN May Repeat x 3 doses, Notify PCP if Chest pain is unresolved Ventolin Hfa Inhaler (Albuterol Sulfate) 18 Gm Hfa.aer.ad 2 Puff IH PRN Q4HRS PRN Ranitidine Hcl 150 Mg Capsule 150 Mg PO BIDBFRMEAL Klor-Con Sprinkle (Potassium Chloride) 10 Meq Capsule.er 10 Meq PO DAILY Torsemide 20 Mg Tablet 20 Mg PO DAILY Norvasc (Amlodipine Besylate) 2.5 Mg Tablet 2.5 Mg PO DAILY Namenda (Memantine Hcl) 10 Mg Tablet 10 Mg PO BID Carvedilol 12.5 Mg Tablet 12.5 Mg PO BID Lisinopril 20 Mg Tablet 20 Mg PO BID Melatonin 3 Mg Tablet 3 Mg PO QHS Aricept (Donepezil Hcl) 10 Mg Tablet 10 Mg PO QHS Diagnosis: Problems: (1) Dementia with behavioral disturbance (2) Anxiety disorder (3) Dementia, vascular, with depression (4) Dementia, vascular, 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
[2017-01-03] MEDS: ATORVASTATIN CALCIUM 20 MG TABLET PO SCH (20:52)
[2017-01-03] MEDS: MIRTAZAPINE 7.5 MG TABLET. PO SCH (20:52)
[2017-01-03] MEDS: DONEPEZIL HCL 10 MG TABLET PO SCH (20:52)
[2017-01-03] MEDS: MELATONIN 3 MG TABLET PO SCH (20:53)
[2017-01-04] MEDS: LEVOTHYROXINE 25 MCG TABLET. PO SCH (05:34)
[2017-01-04 06:29] VITALS: BP 186/68
[2017-01-04] MEDS: MEMANTINE 10 MG TABLET. PO SCH ×2 (08:16→20:39)
[2017-01-04] MEDS: FAMOTIDINE 20 MG TABLET PO SCH ×2 (08:16→18:36)
[2017-01-04] MEDS: SERTRALINE 100 MG TABLET. PO SCH (08:17)
[2017-01-04] MEDS: CARVEDILOL 12.5 MG TABLET PO SCH ×2 (08:17→18:36)
[2017-01-04] MEDS: LISINOPRIL 20 MG TABLET PO SCH ×2 (08:17→20:40)
[2017-01-04] MEDS: QUEtiapine 25 MG TABLET. PO SCH ×2 (08:17→20:41)
[2017-01-04] MEDS: amLODIPine BESYLATE 5 MG TABLET PO SCH (08:17)
[2017-01-04] MEDS: POTASSIUM CHLORIDE 10 MEQ CAPSULE.ER. PO SCH (08:17)
[2017-01-04] MEDS: TORSEMIDE 20 MG TABLET. PO SCH (08:18)
--- NOTE | 2017-01-04 09:48 | PN ---
DATE: 01/02/2017 This is a late entry 01/02/2017, covers elements not covered in my initial note. SUBJECTIVE: The patient remains confused, oblivious of his surroundings was found bed with another demented patient. Threatening staff at one time. Daughter had wondered if the patient was over sedated by nursing staff, do not feel oversedated. We initiated changes in his psychotropics and we will see over the next day or two how he adjusts to this. Refused breakfast. REVIEW OF SYSTEMS: No CV, , eye, ENT or pulmonary system symptoms on review. Reliability poor. MENTAL STATUS EXAM: Oriented to himself. Insight, judgment, recent and remote memory, attention, concentration, fund of knowledge poor, consistent with his diagnosis. IMPRESSION: Major neurocognitive disorder, Alzheimer, vascular with depression, delusion and behavioral disturbance, rest unchanged. PLAN: Continue current psychotropics, Zoloft 100 mg a day, Aricept 10 mg a day, melatonin 3 mg at bedtime, Namenda 10 mg b.i.d., Ativan 1 mg t.i.d. p.r.n., Seroquel 12.5 mg b.i.d., Remeron 7.5 mg at bedtime. Adjust further as clinically indicated. WOO GALINDO MD DR: JOCELYN/rhea JOB#: [id number] / [id number]
[2017-01-04] MEDS: ACETAMINOPHEN 325 MG TABLET PO PRN (10:52)
[2017-01-04 15:36] VITALS: BP 108/68
[2017-01-04] MEDS: PRENATAL MULTIVITAMIN TABLET. PO SCH (18:36)
[2017-01-04] MEDS: LORazepam 1 MG TABLET PO PRN (18:45)
[2017-01-04 18:58] LABS: BACTERIA,URINE 0 /HPF (0-FEW); BILIRUBIN,URINE NEG (NEG); CLARITY,URINE CLEAR; COLOR,URINE YELLOW; GLUCOSE,URINE NEG (NEG); NITRITE,URINE NEG (NEG); RBC,URINE 0 /HPF (0-2); UROBILINOGEN,URINE 0.2 mg/dL (0.2 mg/dL); WBC,URINE RARE /HPF (0-4)
--- NOTE | 2017-01-04 19:40 | PDOC ---
Exam Guru Demential Exam: Guru Note: Please also refer to the separate dictated note~for this date of service dictated separately.~Patient seen individually. Discussed the patient with Nursing staff reviewed the chart.~Reviewed interim history and current functioning. Reviewed vital signs,~Labs/ Radiology~and current medications noted below. Continue current treatment with the changes noted in the dictated addendum note Assessment: Vital Signs: Vital Signs Date Time Temp Pulse Resp B/P (MAP) Pulse Ox O2 Delivery O2 Flow Rate FiO2 01/04/17 18:36 66 108/68 01/04/17 15:36 98.1 16 96 I&O Intake and Output 01/04/17 07:00 Intake Total 960 ml Balance 960 ml Intake Oral 960 ml # Voids 2 Labs: Laboratory Tests Test 01/04/17 18:35 Urine Collection Type Unknown Urine Color Yellow Urine Clarity Clear Urine pH 5.0 Urine Specific [place] 1.015 Urine Protein Neg (NEG-TRACE) Urine Glucose (UA) Neg mg/dL (NEG) Urine Ketones (Stick) Neg mg/dL (NEG) Urine Blood Neg (NEG) Urine Nitrite Neg (NEG) Urine Bilirubin Neg (NEG) Urine Urobilinogen Dipstick 0.2 mg/dL (0.2 mg/dL) Urine Leukocyte Esterase Neg (NEG) Urine RBC 0 /HPF (0-2) Urine WBC Rare /HPF (0-4) Urine Squamous Epithelial Cells None /LPF Urine Bacteria 0 /HPF (0-FEW) Current Medications: Meds: Current Medications Acetaminophen (Tylenol) 650 mg PRN Q6HRS PRN PO MILD PAIN / TEMP Last administered on 01/04/17 10:52; Start 12/28/16 at 21:15 Multi-Ingredient Ointment (Analgesic [place]) 1 baldo PRN QID PRN TP MUSCLE PAIN; Start 12/28/16 at 21:15 Al Hydroxide/Mg Hydroxide (Mylanta Plus Xs) 15 ml PRN AFTMEALHC PRN PO DYSPEPSIA; Start 12/28/16 at 21:15 Magnesium Hydroxide (Milk Of Magnesia) 2,400 mg PRN QHS PRN PO CONSTIPATION; Start 12/28/16 at 21:15 Aripiprazole (Abilify) 5 mg QHS PO Last administered on 12/28/16 22:15; Start 12/28/16 at 22:00; Stop 12/29/16 at 19:06; Status DC Donepezil HCl (Aricept) 10 mg QHS PO Last administered on 01/03/17 20:52; Start 12/28/16 at 22:00 Lorazepam (Ativan) 1 mg TID PRN PRN PO ANXIETY / AGITATION Last administered on 01/04/17 18:45; Start 12/28/16 at 21:15 Melatonin 3 mg QHS PO Last administered on 01/03/17 20:53; Start 12/28/16 at 22 :00 Memantine (Namenda) 10 mg BID PO Last administered on 01/04/17 08:16; Start at 22:00 Sertraline HCl (Zoloft) 100 mg DAILY PO Last administered on 01/04/17 08:17; Start 12/29/16 at 09:00 Albuterol Sulfate (Ventolin Hfa) 2 puff PRN Q4HRS PRN IH SHORTNESS OF BREATH; Start 12/28/16 at 21:15; Status UNV Amlodipine Besylate (Norvasc) 2.5 mg DAILY PO Last administered on 01/02/17 07: 59; Start 12/29/16 at 09:00; Stop 01/02/17 at 13:01; Status DC Carvedilol (Coreg) 12.5 mg BIDWMEALS PO Last administered on 01/04/17 18:36; Start 12/29/16 at 08:00 Lisinopril (Prinivil) 20 mg BID PO Last administered on 01/04/17 08:17; Start 12/29/16 at 09:00 Nitroglycerin (Nitrostat) 0.4 mg PRN Q5MIN PRN SL CHEST PAIN; Start 12/28/16 at 21:15 Potassium Chloride (Micro-K) 10 meq DAILY PO Last administered on 01/04/17 08: 17; Start 12/29/16 at 09:00 Torsemide (Demadex) 20 mg DAILY PO Last administered on 01/04/17 08:18; Start 12/29/16 at 09:00 Famotidine (Pepcid) 20 mg BIDBFRMEAL PO Last administered on 01/04/17 18:36; Start 12/28/16 at 22:00 Albuterol Sulfate (Ventolin) 2.5 mg PRN Q4HRS PRN NEB SHORTNESS OF BREATH; Start 12/28/16 at 21:30 Quetiapine Fumarate (SEROquel) 12.5 mg BID PO Last administered on 01/04/17 08: 17; Start 12/29/16 at 21:00 Prenat Multivit/ [employer]/Iron/Folic Ac (Multivitamin ) 1 tab DAILYBFRSUP PO Last administered on 01/04/17 18:36; Start 12/30/16 at 17:00 Vitamin D (Vitamin D3) 50,000 unit WEEKLY PO ; Start 12/30/16 at 12:00; Stop 12/30 at 12:10; Status DC Cyanocobalamin (Vitamin B-12) 1,000 mcg [id number] IM Last administered on 13:32; Start 12/30/16 at 12:30 Vitamin D (Vitamin D3) 50,000 unit WEEKLY PO Last administered on 12/30/16 13: 32; Start 12/30/16 at 12:30 Levothyroxine Sodium (Synthroid) 25 mcg DAILY07 PO Last administered on 05:34; Start 12/31/16 at 07:00 Atorvastatin Calcium (Lipitor) 20 mg QHS PO Last administered on 01/03/17 20:52 ; Start 12/30/16 at 21:00 Mirtazapine (Remeron) 7.5 mg QHS PO Last administered on 01/03/17 20:52; Start 01/01/17 at 21:00 Amlodipine Besylate (Norvasc) 5 mg DAILY PO Last administered on 01/04/17 08:17 ; Start 01/03/17 at 09:00 Active Scripts Active Reported Abilify (Aripiprazole) 5 Mg Tablet 5 Mg PO QHS Zoloft (Sertraline Hcl) 100 Mg Tablet 100 Mg PO DAILY Lorazepam 1 Mg Tablet 1 Mg PO TID PRN PRN Nitrostat (Nitroglycerin) 0.4 Mg Tab.subl 0.4 Mg SL PRN Q5MIN PRN May Repeat x 3 doses, Notify PCP if Chest pain is unresolved Ventolin Hfa Inhaler (Albuterol Sulfate) 18 Gm Hfa.aer.ad 2 Puff IH PRN Q4HRS PRN Ranitidine Hcl 150 Mg Capsule 150 Mg PO BIDBFRMEAL Klor-Con Sprinkle (Potassium Chloride) 10 Meq Capsule.er 10 Meq PO DAILY Torsemide 20 Mg Tablet 20 Mg PO DAILY Norvasc (Amlodipine Besylate) 2.5 Mg Tablet 2.5 Mg PO DAILY Namenda (Memantine Hcl) 10 Mg Tablet 10 Mg PO BID Carvedilol 12.5 Mg Tablet 12.5 Mg PO BID Lisinopril 20 Mg Tablet 20 Mg PO BID Melatonin 3 Mg Tablet 3 Mg PO QHS Aricept (Donepezil Hcl) 10 Mg Tablet 10 Mg PO QHS Diagnosis: Problems: (1) Dementia with behavioral disturbance (2) Anxiety disorder (3) Dementia, vascular, with depression (4) Dementia, vascular, 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
[2017-01-04] MEDS: ATORVASTATIN CALCIUM 20 MG TABLET PO SCH (20:39)
[2017-01-04] MEDS: DONEPEZIL HCL 10 MG TABLET PO SCH (20:39)
[2017-01-04] MEDS: MIRTAZAPINE 7.5 MG TABLET. PO SCH (20:42)
[2017-01-04] MEDS: MELATONIN 3 MG TABLET PO SCH (20:45)
--- NOTE | 2017-01-04 23:50 | PN ---
DATE: 01/03/2017 PSYCHIATRIC PROGRESS NOTE This is a late entry of 01/03/2017 covers elements not covered in my initial note. SUBJECTIVE: The patient remains confused, talking about having to get to work gets angry has been redirected. WBC increased from 9 to 14. No cough. No temp. We will defer to Dr. Khan believes he is at [facility]. REVIEW OF SYSTEMS: No CV, , eye, ENT or pulmonary system symptoms on review. Reliability poor. MENTAL STATUS EXAM: Oriented to himself. Insight, judgment, recent and remote memory, attention, concentration, fund of knowledge poor, consistent with his diagnosis mentioned in my initial note. PLAN: Continue psychotropics mentioned in my initial note may need to increase Remeron since he slept 4-3/4 hours previous night. MAN Frederick GALINDO MD DR: JOCELYN/rhea JOB#: [id number] / [id number]
[2017-01-05] MEDS: LEVOTHYROXINE 25 MCG TABLET. PO SCH (05:54)
[2017-01-05 06:47] VITALS: BP 150/85
[2017-01-05 07:07] LABS: BASO # 0.2 x10^3/uL (0.0-0.2); BASO % 3 % (0-3); EOS # 0.1 x10^3/uL (0.0-0.7); EOS % 1 % (0-3); HEMATOCRIT 39.1 % (39.0-53.0); HEMOGLOBIN 13.4 g/dL (13.0-17.5); LYMPH # 3.2 x10^3/uL (1.0-4.8); LYMPH % 34 % (24-48); MEAN CORPUSCULAR HEMOGLOBIN 29 pg (25-35); MEAN CORPUSCULAR HGB CONC 34 g/dL (31-37); MEAN CORPUSCULAR VOLUME 85 fL (79-100); MONO # 0.9 x10^3/uL (0.0-1.1); MONO % 10 % (0-9); NEUT % 53 % (31-73); PLATELET COUNT 188 x10^3/uL (140-400); RED BLOOD COUNT 4.62 x10^6/uL (4.30-5.70); RED CELL DISTRIBUTION WIDTH 13.9 % (11.5-14.5); WHITE BLOOD COUNT 9.4 x10^3/uL (4.0-11.0)
[2017-01-05 07:25] LABS: ALBUMIN 3.7 g/dL (3.4-5.0); ALBUMIN/GLOBULIN RATIO 1.1 (1.0-1.7); CALCIUM 9.3 mg/dL (8.5-10.1); CREATININE 1.1 mg/dL (0.7-1.3); GFR 64.6; POTASSIUM 3.8 mmol/L (3.5-5.1); TOTAL BILIRUBIN 0.5 mg/dL (0.2-1.0); TOTAL PROTEIN 7.1 g/dL (6.4-8.2)
[2017-01-05] MEDS: CARVEDILOL 12.5 MG TABLET PO SCH ×3 (08:01→17:22)
[2017-01-05] MEDS: FAMOTIDINE 20 MG TABLET PO SCH ×2 (08:01→15:42)
[2017-01-05] MEDS: MEMANTINE 10 MG TABLET. PO SCH ×2 (08:02→20:19)
[2017-01-05] MEDS: TORSEMIDE 20 MG TABLET. PO SCH (08:02)
[2017-01-05] MEDS: LISINOPRIL 20 MG TABLET PO SCH ×2 (08:02→20:19)
[2017-01-05] MEDS: POTASSIUM CHLORIDE 10 MEQ CAPSULE.ER. PO SCH (08:02)
[2017-01-05] MEDS: SERTRALINE 100 MG TABLET. PO SCH (08:03)
[2017-01-05] MEDS: QUEtiapine 25 MG TABLET. PO SCH ×2 (08:03→20:20)
[2017-01-05] MEDS: amLODIPine BESYLATE 5 MG TABLET PO SCH (08:03)
--- NOTE | 2017-01-05 12:27 | PN ---
DATE: 01/04/2017 PSYCHIATRIC PROGRESS NOTE This is late entry of 01/04/2017, covers elements not covered in my initial note. SUBJECTIVE: The patient's WBC was 14.4 on 01/03/2017. UA and stool being repeated per Dr. Khan. Remains confused, delusional at times, thinks he is working, at times gets angry, combative, redirects. REVIEW OF SYSTEMS: No CV, , pulmonary, eye system symptoms on review. Reliability poor. MENTAL STATUS EXAMINATION: Oriented to himself. Insight, judgment, recent and remote memory, attention, concentration, fund of knowledge poor, consistent with his diagnosis mentioned in my initial note. PLAN: Continue psychotropics mentioned in my initial note. Adjust further as clinically indicated. MAN Frederick GALINDO MD DR: JOCELYN/rhea JOB#: [id number] / [id number]
[2017-01-05] MEDS: LORazepam 1 MG TABLET PO PRN (15:42)
[2017-01-05 16:03] VITALS: BP 172/86
[2017-01-05] MEDS: PRENATAL MULTIVITAMIN TABLET. PO SCH ×2 (17:00→17:22)
--- NOTE | 2017-01-05 19:54 | PDOC ---
Exam Guru Demential Exam: Guru Note: Please also refer to the separate dictated note~for this date of service dictated separately.~Patient seen individually. Discussed the patient with Nursing staff reviewed the chart.~Reviewed interim history and current functioning. Reviewed vital signs,~Labs/ Radiology~and current medications noted below. Continue current treatment with the changes noted in the dictated addendum note Assessment: Vital Signs: Vital Signs Date Time Temp Pulse Resp B/P (MAP) Pulse Ox O2 Delivery O2 Flow Rate FiO2 01/05/17 17:00 65 172/86 01/05/17 16:03 97.4 20 98 I&O Intake and Output 01/05/17 07:00 Intake Total 720 ml Balance 720 ml Intake Oral 720 ml # Bowel Movements 1 Labs: Laboratory Tests Test 01/05/17 06:55 White Blood Count 9.4 x10^3/uL (4.0-11.0) Red Blood Count 4.62 x10^6/uL (4.30-5.70) Hemoglobin 13.4 g/dL (13.0-17.5) Hematocrit 39.1 % (39.0-53.0) Mean Corpuscular Volume 85 fL (79-100) Mean Corpuscular Hemoglobin 29 pg (25-35) Mean Corpuscular Hemoglobin Concent 34 g/dL (31-37) Red Cell Distribution Width 13.9 % (11.5-14.5) Platelet Count 188 x10^3/uL (140-400) Neutrophils (%) (Auto) 53 % (31-73) Lymphocytes (%) (Auto) 34 % (24-48) Monocytes (%) (Auto) 10 % (0-9) H Eosinophils (%) (Auto) 1 % (0-3) Basophils (%) (Auto) 3 % (0-3) Neutrophils # (Auto) 5.0 x10^3uL (1.8-7.7) Lymphocytes # (Auto) 3.2 x10^3/uL (1.0-4.8) Monocytes # (Auto) 0.9 x10^3/uL (0.0-1.1) Eosinophils # (Auto) 0.1 x10^3/uL (0.0-0.7) Basophils # (Auto) 0.2 x10^3/uL (0.0-0.2) Sodium Level 145 mmol/L (136-145) Potassium Level 3.8 mmol/L (3.5-5.1) Chloride Level 109 mmol/L (98-107) H Carbon Dioxide Level 29 mmol/L (21-32) Anion Gap 7 (6-14) Blood Urea Nitrogen 24 mg/dL (8-26) Creatinine 1.1 mg/dL (0.7-1.3) Estimated GFR (Cockcroft-Gault) 64.6 BUN/Creatinine Ratio 22 (6-20) H Glucose Level 91 mg/dL (70-99) Calcium Level 9.3 mg/dL (8.5-10.1) Total Bilirubin 0.5 mg/dL (0.2-1.0) Aspartate Amino Transferase (AST) 23 U/L (15-37) Alanine Aminotransferase (ALT) 29 U/L (16-63) Alkaline Phosphatase 78 U/L (46-116) Total Protein 7.1 g/dL (6.4-8.2) Albumin 3.7 g/dL (3.4-5.0) Albumin/Globulin Ratio 1.1 (1.0-1.7) Current Medications: Meds: Current Medications Acetaminophen (Tylenol) 650 mg PRN Q6HRS PRN PO MILD PAIN / TEMP Last administered on 01/04/17 10:52; Start 12/28/16 at 21:15 Multi-Ingredient Ointment (Analgesic [place]) 1 baldo PRN QID PRN TP MUSCLE PAIN; Start 12/28/16 at 21:15 Al Hydroxide/Mg Hydroxide (Mylanta Plus Xs) 15 ml PRN AFTMEALHC PRN PO DYSPEPSIA; Start 12/28/16 at 21:15 Magnesium Hydroxide (Milk Of Magnesia) 2,400 mg PRN QHS PRN PO CONSTIPATION; Start 12/28/16 at 21:15 Aripiprazole (Abilify) 5 mg QHS PO Last administered on 12/28/16 22:15; Start 12/28/16 at 22:00; Stop 12/29/16 at 19:06; Status DC Donepezil HCl (Aricept) 10 mg QHS PO Last administered on 01/04/17 20:39; Start 12/28/16 at 22:00 Lorazepam (Ativan) 1 mg TID PRN PRN PO ANXIETY / AGITATION Last administered on 01/05/17 15:42; Start 12/28/16 at 21:15 Melatonin 3 mg QHS PO Last administered on 01/04/17 20:45; Start 12/28/16 at 22 :00 Memantine (Namenda) 10 mg BID PO Last administered on 01/05/17 08:02; Start at 22:00 Sertraline HCl (Zoloft) 100 mg DAILY PO Last administered on 01/05/17 08:03; Start 12/29/16 at 09:00 Albuterol Sulfate (Ventolin Hfa) 2 puff PRN Q4HRS PRN IH SHORTNESS OF BREATH; Start 12/28/16 at 21:15; Status UNV Amlodipine Besylate (Norvasc) 2.5 mg DAILY PO Last administered on 01/02/17 07: 59; Start 12/29/16 at 09:00; Stop 01/02/17 at 13:01; Status DC Carvedilol (Coreg) 12.5 mg BIDWMEALS PO Last administered on 01/05/17 08:01; Start 12/29/16 at 08:00 Lisinopril (Prinivil) 20 mg BID PO Last administered on 01/05/17 08:02; Start 12/29/16 at 09:00 Nitroglycerin (Nitrostat) 0.4 mg PRN Q5MIN PRN SL CHEST PAIN; Start 12/28/16 at 21:15 Potassium Chloride (Micro-K) 10 meq DAILY PO Last administered on 01/05/17 08: 02; Start 12/29/16 at 09:00 Torsemide (Demadex) 20 mg DAILY PO Last administered on 01/05/17 08:02; Start 12/29/16 at 09:00 Famotidine (Pepcid) 20 mg BIDBFRMEAL PO Last administered on 01/05/17 15:42; Start 12/28/16 at 22:00 Albuterol Sulfate (Ventolin) 2.5 mg PRN Q4HRS PRN NEB SHORTNESS OF BREATH; Start 12/28/16 at 21:30 Quetiapine Fumarate (SEROquel) 12.5 mg BID PO Last administered on 01/05/17 08: 03; Start 12/29/16 at 21:00; Stop 01/05/17 at 18:34; Status DC Prenat Multivit/ [place]/Iron/Folic Ac (Multivitamin ) 1 tab DAILYBFRSUP PO Last administered on 01/04/17 18:36; Start 12/30/16 at 17:00 Vitamin D (Vitamin D3) 50,000 unit WEEKLY PO ; Start 12/30/16 at 12:00; Stop 12/30 at 12:10; Status DC Cyanocobalamin (Vitamin B-12) 1,000 mcg [id number] IM Last administered on 13:32; Start 12/30/16 at 12:30 Vitamin D (Vitamin D3) 50,000 unit WEEKLY PO Last administered on 12/30/16 13: 32; Start 12/30/16 at 12:30 Levothyroxine Sodium (Synthroid) 25 mcg DAILY07 PO Last administered on 05:54; Start 12/31/16 at 07:00 Atorvastatin Calcium (Lipitor) 20 mg QHS PO Last administered on 01/04/17 20:39 ; Start 12/30/16 at 21:00 Mirtazapine (Remeron) 7.5 mg QHS PO Last administered on 01/04/17 20:42; Start 01/01/17 at 21:00 Amlodipine Besylate (Norvasc) 5 mg DAILY PO Last administered on 01/05/17 08:03 ; Start 01/03/17 at 09:00 Quetiapine Fumarate (SEROquel) 12.5 mg TID PO ; Start 01/05/17 at 21:00 Active Scripts Active Reported Abilify (Aripiprazole) 5 Mg Tablet 5 Mg PO QHS Zoloft (Sertraline Hcl) 100 Mg Tablet 100 Mg PO DAILY Lorazepam 1 Mg Tablet 1 Mg PO TID PRN PRN Nitrostat (Nitroglycerin) 0.4 Mg Tab.subl 0.4 Mg SL PRN Q5MIN PRN May Repeat x 3 doses, Notify PCP if Chest pain is unresolved Ventolin Hfa Inhaler (Albuterol Sulfate) 18 Gm Hfa.aer.ad 2 Puff IH PRN Q4HRS PRN Ranitidine Hcl 150 Mg Capsule 150 Mg PO BIDBFRMEAL Klor-Con Sprinkle (Potassium Chloride) 10 Meq Capsule.er 10 Meq PO DAILY Torsemide 20 Mg Tablet 20 Mg PO DAILY Norvasc (Amlodipine Besylate) 2.5 Mg Tablet 2.5 Mg PO DAILY Namenda (Memantine Hcl) 10 Mg Tablet 10 Mg PO BID Carvedilol 12.5 Mg Tablet 12.5 Mg PO BID Lisinopril 20 Mg Tablet 20 Mg PO BID Melatonin 3 Mg Tablet 3 Mg PO QHS Aricept (Donepezil Hcl) 10 Mg Tablet 10 Mg PO QHS Diagnosis: Problems: (1) Dementia with behavioral disturbance (2) Anxiety disorder (3) Dementia, vascular, with depression (4) Dementia, vascular, 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
[2017-01-05] MEDS: DONEPEZIL HCL 10 MG TABLET PO SCH (20:19)
[2017-01-05] MEDS: MELATONIN 3 MG TABLET PO SCH (20:19)
[2017-01-05] MEDS: MIRTAZAPINE 7.5 MG TABLET. PO SCH (20:19)
[2017-01-05] MEDS: ATORVASTATIN CALCIUM 20 MG TABLET PO SCH (20:19)
[2017-01-06] MEDS: LEVOTHYROXINE 25 MCG TABLET. PO SCH (05:45)
[2017-01-06 05:52] VITALS: BP 172/87
[2017-01-06] MEDS: CARVEDILOL 12.5 MG TABLET PO SCH ×2 (07:49→16:38)
[2017-01-06] MEDS: POTASSIUM CHLORIDE 10 MEQ CAPSULE.ER. PO SCH (07:49)
[2017-01-06] MEDS: MEMANTINE 10 MG TABLET. PO SCH ×2 (07:49→19:55)
[2017-01-06] MEDS: SERTRALINE 100 MG TABLET. PO SCH (07:50)
[2017-01-06] MEDS: LISINOPRIL 20 MG TABLET PO SCH ×2 (07:50→19:55)
[2017-01-06] MEDS: QUEtiapine 25 MG TABLET. PO SCH ×3 (07:50→19:56)
[2017-01-06] MEDS: FAMOTIDINE 20 MG TABLET PO SCH ×2 (07:50→16:38)
[2017-01-06] MEDS: TORSEMIDE 20 MG TABLET. PO SCH (07:50)
[2017-01-06] MEDS: amLODIPine BESYLATE 5 MG TABLET PO SCH (07:51)
[2017-01-06] MEDS: CHOLECALCIFEROL (VITAMIN D3) 50,000 UNIT CAPSULE PO SCH (07:52)
[2017-01-06 14:40] VITALS: BP 158/80
[2017-01-06] MEDS: PRENATAL MULTIVITAMIN TABLET. PO SCH (16:38)
[2017-01-06] MEDS: ATORVASTATIN CALCIUM 20 MG TABLET PO SCH (19:55)
[2017-01-06] MEDS: DONEPEZIL HCL 10 MG TABLET PO SCH (19:55)
[2017-01-06] MEDS: MELATONIN 3 MG TABLET PO SCH (19:55)
[2017-01-06] MEDS: MIRTAZAPINE 7.5 MG TABLET. PO SCH (19:55)
--- NOTE | 2017-01-06 20:55 | PDOC ---
Exam Guru Demential Exam: Guru Note: Please also refer to the separate dictated note~for this date of service dictated separately.~Patient seen individually. Discussed the patient with Nursing staff reviewed the chart.~Reviewed interim history and current functioning. Reviewed vital signs,~Labs/ Radiology~and current medications noted below. Continue current treatment with the changes noted in the dictated addendum note Assessment: Vital Signs: Vital Signs Date Time Temp Pulse Resp B/P (MAP) Pulse Ox O2 Delivery O2 Flow Rate FiO2 01/06/17 19:55 67 158/80 01/06/17 14:40 97.6 20 97 I&O Intake and Output 01/06/17 07:00 Intake Total 1080 ml Balance 1080 ml Intake Oral 1080 ml Current Medications: Meds: Current Medications Acetaminophen (Tylenol) 650 mg PRN Q6HRS PRN PO MILD PAIN / TEMP Last administered on 01/04/17 10:52; Start 12/28/16 at 21:15 Multi-Ingredient Ointment (Analgesic [place]) 1 baldo PRN QID PRN TP MUSCLE PAIN; Start 12/28/16 at 21:15 Al Hydroxide/Mg Hydroxide (Mylanta Plus Xs) 15 ml PRN AFTMEALHC PRN PO DYSPEPSIA; Start 12/28/16 at 21:15 Magnesium Hydroxide (Milk Of Magnesia) 2,400 mg PRN QHS PRN PO CONSTIPATION; Start 12/28/16 at 21:15 Aripiprazole (Abilify) 5 mg QHS PO Last administered on 12/28/16 22:15; Start 12/28/16 at 22:00; Stop 12/29/16 at 19:06; Status DC Donepezil HCl (Aricept) 10 mg QHS PO Last administered on 01/06/17 19:55; Start 12/28/16 at 22:00 Lorazepam (Ativan) 1 mg TID PRN PRN PO ANXIETY / AGITATION Last administered on 01/05/17 15:42; Start 12/28/16 at 21:15 Melatonin 3 mg QHS PO Last administered on 01/06/17 19:55; Start 12/28/16 at 22 :00 Memantine (Namenda) 10 mg BID PO Last administered on 01/06/17 19:55; Start at 22:00 Sertraline HCl (Zoloft) 100 mg DAILY PO Last administered on 01/06/17 07:50; Start 12/29/16 at 09:00 Albuterol Sulfate (Ventolin Hfa) 2 puff PRN Q4HRS PRN IH SHORTNESS OF BREATH; Start 12/28/16 at 21:15; Status UNV Amlodipine Besylate (Norvasc) 2.5 mg DAILY PO Last administered on 01/02/17 07: 59; Start 12/29/16 at 09:00; Stop 01/02/17 at 13:01; Status DC Carvedilol (Coreg) 12.5 mg BIDWMEALS PO Last administered on 01/06/17 16:38; Start 12/29/16 at 08:00 Lisinopril (Prinivil) 20 mg BID PO Last administered on 01/06/17 19:55; Start 12/29/16 at 09:00 Nitroglycerin (Nitrostat) 0.4 mg PRN Q5MIN PRN SL CHEST PAIN; Start 12/28/16 at 21:15 Potassium Chloride (Micro-K) 10 meq DAILY PO Last administered on 01/06/17 07: 49; Start 12/29/16 at 09:00 Torsemide (Demadex) 20 mg DAILY PO Last administered on 01/06/17 07:50; Start 12/29/16 at 09:00 Famotidine (Pepcid) 20 mg BIDBFRMEAL PO Last administered on 01/06/17 16:38; Start 12/28/16 at 22:00 Albuterol Sulfate (Ventolin) 2.5 mg PRN Q4HRS PRN NEB SHORTNESS OF BREATH; Start 12/28/16 at 21:30 Quetiapine Fumarate (SEROquel) 12.5 mg BID PO Last administered on 01/05/17 08: 03; Start 12/29/16 at 21:00; Stop 01/05/17 at 18:34; Status DC Prenat Multivit/ [place]/Iron/Folic Ac (Multivitamin ) 1 tab DAILYBFRSUP PO Last administered on 01/06/17 16:38; Start 12/30/16 at 17:00 Vitamin D (Vitamin D3) 50,000 unit WEEKLY PO ; Start 12/30/16 at 12:00; Stop 12/30 at 12:10; Status DC Cyanocobalamin (Vitamin B-12) 1,000 mcg [id number] IM Last administered on 13:32; Start 12/30/16 at 12:30 Vitamin D (Vitamin D3) 50,000 unit WEEKLY PO Last administered on 01/06/17 07: 52; Start 12/30/16 at 12:30 Levothyroxine Sodium (Synthroid) 25 mcg DAILY07 PO Last administered on 05:45; Start 12/31/16 at 07:00 Atorvastatin Calcium (Lipitor) 20 mg QHS PO Last administered on 01/06/17 19:55 ; Start 12/30/16 at 21:00 Mirtazapine (Remeron) 7.5 mg QHS PO Last administered on 01/06/17 19:55; Start 01/01/17 at 21:00 Amlodipine Besylate (Norvasc) 5 mg DAILY PO Last administered on 01/06/17 07:51 ; Start 01/03/17 at 09:00 Quetiapine Fumarate (SEROquel) 12.5 mg TID PO Last administered on 01/06/17 19: 56; Start 01/05/17 at 21:00 Active Scripts Active Reported Abilify (Aripiprazole) 5 Mg Tablet 5 Mg PO QHS Zoloft (Sertraline Hcl) 100 Mg Tablet 100 Mg PO DAILY Lorazepam 1 Mg Tablet 1 Mg PO TID PRN PRN Nitrostat (Nitroglycerin) 0.4 Mg Tab.subl 0.4 Mg SL PRN Q5MIN PRN May Repeat x 3 doses, Notify PCP if Chest pain is unresolved Ventolin Hfa Inhaler (Albuterol Sulfate) 18 Gm Hfa.aer.ad 2 Puff IH PRN Q4HRS PRN Ranitidine Hcl 150 Mg Capsule 150 Mg PO BIDBFRMEAL Klor-Con Sprinkle (Potassium Chloride) 10 Meq Capsule.er 10 Meq PO DAILY Torsemide 20 Mg Tablet 20 Mg PO DAILY Norvasc (Amlodipine Besylate) 2.5 Mg Tablet 2.5 Mg PO DAILY Namenda (Memantine Hcl) 10 Mg Tablet 10 Mg PO BID Carvedilol 12.5 Mg Tablet 12.5 Mg PO BID Lisinopril 20 Mg Tablet 20 Mg PO BID Melatonin 3 Mg Tablet 3 Mg PO QHS Aricept (Donepezil Hcl) 10 Mg Tablet 10 Mg PO QHS Diagnosis: Problems: (1) Dementia with behavioral disturbance (2) Anxiety disorder (3) Dementia, vascular, with depression (4) Dementia, vascular, 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
--- NOTE | 2017-01-06 22:53 | PN ---
DATE: 01/05/2017 PSYCHIATRIC PROGRESS NOTE This is late entry of 01/05/2017, covers elements not covered in my initial note. SUBJECTIVE: The patient remains intermittently anxious, restless, received Ativan at 4 a.m. and 4 p.m., somewhat delusional, fixated that someone stole his boots. The previous evening, he was kicking at staff, still receiving p.r.n. Ativan, received it at 1 p.m. Speech therapy evaluation is still awaited. REVIEW OF SYSTEMS: No CV, , pulmonary, eye system symptoms on review. Reliability poor. MENTAL STATUS EXAMIATION: Oriented to himself. Insight, judgment, recent and remote memory, attention, concentration, fund of knowledge poor, consistent with his diagnosis mentioned in my initial note. PLAN: Increase Seroquel from 12.5 b.i.d. to 12.5 t.i.d., maintain Zoloft 100 mg a day, Aricept 10 a day, melatonin 3 mg at bedtime, Namenda 10 b.i.d., Remeron 7.5 mg at bedtime, Ativan p.r.n. Adjust as indicated clinically. MAN Frederick GALINDO MD DR: JOCELYN/rhea JOB#: [id number] / [id number]
[2017-01-07] MEDS: LEVOTHYROXINE 25 MCG TABLET. PO SCH (06:06)
[2017-01-07 06:42] VITALS: BP 163/76
[2017-01-07] MEDS: POTASSIUM CHLORIDE 10 MEQ CAPSULE.ER. PO SCH (08:37)
[2017-01-07] MEDS: FAMOTIDINE 20 MG TABLET PO SCH ×2 (08:38→17:04)
[2017-01-07] MEDS: SERTRALINE 100 MG TABLET. PO SCH (08:38)
[2017-01-07] MEDS: QUEtiapine 25 MG TABLET. PO SCH ×3 (08:38→19:58)
[2017-01-07] MEDS: LISINOPRIL 20 MG TABLET PO SCH ×2 (08:38→19:59)
[2017-01-07] MEDS: amLODIPine BESYLATE 5 MG TABLET PO SCH (08:38)
[2017-01-07] MEDS: CARVEDILOL 12.5 MG TABLET PO SCH ×2 (08:38→17:04)
[2017-01-07] MEDS: MEMANTINE 10 MG TABLET. PO SCH ×2 (08:38→19:59)
[2017-01-07] MEDS: TORSEMIDE 20 MG TABLET. PO SCH (08:39)
[2017-01-07] MEDS: LORazepam 1 MG TABLET PO PRN ×2 (12:11→20:01)
[2017-01-07 15:46] VITALS: BP 136/56
[2017-01-07] MEDS: PRENATAL MULTIVITAMIN TABLET. PO SCH (17:04)
[2017-01-07] MEDS: MIRTAZAPINE 7.5 MG TABLET. PO SCH (19:58)
[2017-01-07] MEDS: ATORVASTATIN CALCIUM 20 MG TABLET PO SCH (19:59)
[2017-01-07] MEDS: DONEPEZIL HCL 10 MG TABLET PO SCH (19:59)
[2017-01-07] MEDS: MELATONIN 3 MG TABLET PO SCH (19:59)
--- NOTE | 2017-01-07 21:54 | PDOC ---
Exam Guru Demential Exam: Guru Note: Please also refer to the separate dictated note~for this date of service dictated separately.~Patient seen individually. Discussed the patient with Nursing staff reviewed the chart.~Reviewed interim history and current functioning. Reviewed vital signs,~Labs/ Radiology~and current medications noted below. Continue current treatment with the changes noted in the dictated addendum note Assessment: Vital Signs: Vital Signs Date Time Temp Pulse Resp B/P (MAP) Pulse Ox O2 Delivery O2 Flow Rate FiO2 01/07/17 19:59 63 136/56 01/07/17 15:46 98.2 20 94 I&O Intake and Output 01/07/17 07:00 Intake Total 1080 ml Balance 1080 ml Intake Oral 1080 ml Current Medications: Meds: Current Medications Acetaminophen (Tylenol) 650 mg PRN Q6HRS PRN PO MILD PAIN / TEMP Last administered on 01/04/17 10:52; Start 12/28/16 at 21:15 Multi-Ingredient Ointment (Analgesic [place]) 1 baldo PRN QID PRN TP MUSCLE PAIN; Start 12/28/16 at 21:15 Al Hydroxide/Mg Hydroxide (Mylanta Plus Xs) 15 ml PRN AFTMEALHC PRN PO DYSPEPSIA; Start 12/28/16 at 21:15 Magnesium Hydroxide (Milk Of Magnesia) 2,400 mg PRN QHS PRN PO CONSTIPATION; Start 12/28/16 at 21:15 Aripiprazole (Abilify) 5 mg QHS PO Last administered on 12/28/16 22:15; Start 12/28/16 at 22:00; Stop 12/29/16 at 19:06; Status DC Donepezil HCl (Aricept) 10 mg QHS PO Last administered on 01/07/17 19:59; Start 12/28/16 at 22:00 Lorazepam (Ativan) 1 mg TID PRN PRN PO ANXIETY / AGITATION Last administered on 01/07/17 20:01; Start 12/28/16 at 21:15 Melatonin 3 mg QHS PO Last administered on 01/07/17 19:59; Start 12/28/16 at 22:00 Memantine (Namenda) 10 mg BID PO Last administered on 01/07/17 19:59; Start at 22:00 Sertraline HCl (Zoloft) 100 mg DAILY PO Last administered on 01/07/17 08:38; Start 12/29/16 at 09:00 Albuterol Sulfate (Ventolin Hfa) 2 puff PRN Q4HRS PRN IH SHORTNESS OF BREATH; Start 12/28/16 at 21:15; Status UNV Amlodipine Besylate (Norvasc) 2.5 mg DAILY PO Last administered on 01/02/17 07: 59; Start 12/29/16 at 09:00; Stop 01/02/17 at 13:01; Status DC Carvedilol (Coreg) 12.5 mg BIDWMEALS PO Last administered on 01/07/17 17:04; Start 12/29/16 at 08:00 Lisinopril (Prinivil) 20 mg BID PO Last administered on 01/07/17 19:59; Start 12/29/16 at 09:00 Nitroglycerin (Nitrostat) 0.4 mg PRN Q5MIN PRN SL CHEST PAIN; Start 12/28/16 at 21:15 Potassium Chloride (Micro-K) 10 meq DAILY PO Last administered on 01/07/17 08: 37; Start 12/29/16 at 09:00 Torsemide (Demadex) 20 mg DAILY PO Last administered on 01/07/17 08:39; Start 12/29/16 at 09:00 Famotidine (Pepcid) 20 mg BIDBFRMEAL PO Last administered on 01/07/17 17:04; Start 12/28/16 at 22:00 Albuterol Sulfate (Ventolin) 2.5 mg PRN Q4HRS PRN NEB SHORTNESS OF BREATH; Start 12/28/16 at 21:30 Quetiapine Fumarate (SEROquel) 12.5 mg BID PO Last administered on 01/05/17 08: 03; Start 12/29/16 at 21:00; Stop 01/05/17 at 18:34; Status DC Prenat Multivit/ [place]/Iron/Folic Ac (Multivitamin ) 1 tab DAILYBFRSUP PO Last administered on 01/07/17 17:04; Start 12/30/16 at 17:00 Vitamin D (Vitamin D3) 50,000 unit WEEKLY PO ; Start 12/30/16 at 12:00; Stop 12/30 at 12:10; Status DC Cyanocobalamin (Vitamin B-12) 1,000 mcg [id number] IM Last administered on 13:32; Start 12/30/16 at 12:30 Vitamin D (Vitamin D3) 50,000 unit WEEKLY PO Last administered on 01/06/17 07: 52; Start 12/30/16 at 12:30 Levothyroxine Sodium (Synthroid) 25 mcg DAILY07 PO Last administered on 06:06; Start 12/31/16 at 07:00 Atorvastatin Calcium (Lipitor) 20 mg QHS PO Last administered on 01/07/17 19: 59; Start 12/30/16 at 21:00 Mirtazapine (Remeron) 7.5 mg QHS PO Last administered on 01/07/17 19:58; Start 01/01/17 at 21:00 Amlodipine Besylate (Norvasc) 5 mg DAILY PO Last administered on 01/07/17 08: 38; Start 01/03/17 at 09:00 Quetiapine Fumarate (SEROquel) 12.5 mg TID PO Last administered on 01/07/17 14 :28; Start 01/05/17 at 21:00; Stop 01/07/17 at 18:32; Status DC Quetiapine Fumarate (SEROquel) 12.5 mg QID PO Last administered on 01/07/17 19 :58; Start 01/07/17 at 21:00 Active Scripts Active Reported Abilify (Aripiprazole) 5 Mg Tablet 5 Mg PO QHS Zoloft (Sertraline Hcl) 100 Mg Tablet 100 Mg PO DAILY Lorazepam 1 Mg Tablet 1 Mg PO TID PRN PRN Nitrostat (Nitroglycerin) 0.4 Mg Tab.subl 0.4 Mg SL PRN Q5MIN PRN May Repeat x 3 doses, Notify PCP if Chest pain is unresolved Ventolin Hfa Inhaler (Albuterol Sulfate) 18 Gm Hfa.aer.ad 2 Puff IH PRN Q4HRS PRN Ranitidine Hcl 150 Mg Capsule 150 Mg PO BIDBFRMEAL Klor-Con Sprinkle (Potassium Chloride) 10 Meq Capsule.er 10 Meq PO DAILY Torsemide 20 Mg Tablet 20 Mg PO DAILY Norvasc (Amlodipine Besylate) 2.5 Mg Tablet 2.5 Mg PO DAILY Namenda (Memantine Hcl) 10 Mg Tablet 10 Mg PO BID Carvedilol 12.5 Mg Tablet 12.5 Mg PO BID Lisinopril 20 Mg Tablet 20 Mg PO BID Melatonin 3 Mg Tablet 3 Mg PO QHS Aricept (Donepezil Hcl) 10 Mg Tablet 10 Mg PO QHS WOO GALINDO MD January 07, 2017 21:54
[2017-01-08] MEDS: LEVOTHYROXINE 25 MCG TABLET. PO SCH (05:05)
[2017-01-08 06:08] VITALS: BP 125/68
[2017-01-08] MEDS: LORazepam 1 MG TABLET PO PRN (07:20)
--- NOTE | 2017-01-08 09:41 | PN ---
DATE: 01/06/2017 PSYCHIATRIC PROGRESS NOTE This is late entry for date of service 01/06/2017 and covers elements not covered in my initial note. SUBJECTIVE: Per nursing report, the patient remains quite confused, more so in the morning when he felt he was at the [facility]. Late in the afternoon, he was anxious, restless, exit seeking. REVIEW OF SYSTEMS: No CV, , eye, ENT or pulmonary system symptoms on review. Reliability poor. MENTAL STATUS EXAMINATION: Oriented to himself. Insight, judgment, recent and remote memory, attention, concentration, fund of knowledge poor, consistent with his diagnosis mentioned in my initial note. PLAN: Increase Seroquel from 12.5 mg twice a day to 3 times a day, continue Zoloft, Aricept, melatonin, Namenda, Remeron along with Ativan p.r.n. Adjust further as clinically indicated. WOO GALINDO MD DR: JOCELYN/rhea JOB#: [id number] / [id number]
[2017-01-08] MEDS: FAMOTIDINE 20 MG TABLET PO SCH ×2 (10:24→16:29)
[2017-01-08] MEDS: PRENATAL MULTIVITAMIN TABLET. PO SCH (10:24)
[2017-01-08] MEDS: POTASSIUM CHLORIDE 10 MEQ CAPSULE.ER. PO SCH (10:25)
[2017-01-08] MEDS: SERTRALINE 100 MG TABLET. PO SCH (10:25)
[2017-01-08] MEDS: MEMANTINE 10 MG TABLET. PO SCH ×2 (10:25→20:14)
[2017-01-08] MEDS: TORSEMIDE 20 MG TABLET. PO SCH (10:26)
[2017-01-08] MEDS: QUEtiapine 25 MG TABLET. PO SCH ×3 (10:27→20:15)
[2017-01-08 10:42] VITALS: BP 129/73
[2017-01-08] MEDS: CARVEDILOL 12.5 MG TABLET PO SCH ×2 (10:43→16:29)
[2017-01-08] MEDS: amLODIPine BESYLATE 5 MG TABLET PO SCH (10:43)
[2017-01-08] MEDS: LISINOPRIL 20 MG TABLET PO SCH ×2 (10:43→20:15)
[2017-01-08 16:11] VITALS: BP 148/76
[2017-01-08] MEDS: ATORVASTATIN CALCIUM 20 MG TABLET PO SCH (20:14)
[2017-01-08] MEDS: MELATONIN 3 MG TABLET PO SCH (20:14)
[2017-01-08] MEDS: MIRTAZAPINE 7.5 MG TABLET. PO SCH (20:15)
[2017-01-08] MEDS: DONEPEZIL HCL 10 MG TABLET PO SCH (20:15)
[2017-01-08] MEDS: DIVALPROEX 125 MG CAP.SPRINK PO SCH (20:16)
--- NOTE | 2017-01-08 20:55 | PDOC ---
Exam Guru Demential Exam: Guru Note: Please also refer to the separate dictated note~for this date of service dictated separately.~Patient seen individually. Discussed the patient with Nursing staff reviewed the chart.~Reviewed interim history and current functioning. Reviewed vital signs,~Labs/ Radiology~and current medications noted below. Continue current treatment with the changes noted in the dictated addendum note Assessment: Vital Signs: Vital Signs Date Time Temp Pulse Resp B/P (MAP) Pulse Ox O2 Delivery O2 Flow Rate FiO2 01/08/17 20:15 70 148/76 01/08/17 16:11 97.3 19 96 I&O Intake and Output 01/08/17 07:00 Intake Total 1080 ml Balance 1080 ml Intake Oral 1080 ml # Voids 1 Current Medications: Meds: Current Medications Acetaminophen (Tylenol) 650 mg PRN Q6HRS PRN PO MILD PAIN / TEMP Last administered on 01/04/17 10:52; Start 12/28/16 at 21:15 Multi-Ingredient Ointment (Analgesic [place]) 1 baldo PRN QID PRN TP MUSCLE PAIN; Start 12/28/16 at 21:15 Al Hydroxide/Mg Hydroxide (Mylanta Plus Xs) 15 ml PRN AFTMEALHC PRN PO DYSPEPSIA; Start 12/28/16 at 21:15 Magnesium Hydroxide (Milk Of Magnesia) 2,400 mg PRN QHS PRN PO CONSTIPATION; Start 12/28/16 at 21:15 Aripiprazole (Abilify) 5 mg QHS PO Last administered on 12/28/16 22:15; Start 12/28/16 at 22:00; Stop 12/29/16 at 19:06; Status DC Donepezil HCl (Aricept) 10 mg QHS PO Last administered on 01/08/17 20:15; Start 12/28/16 at 22:00 Lorazepam (Ativan) 1 mg TID PRN PRN PO ANXIETY / AGITATION Last administered on 01/08/17 07:20; Start 12/28/16 at 21:15 Melatonin 3 mg QHS PO Last administered on 01/08/17 20:14; Start 12/28/16 at 22:00 Memantine (Namenda) 10 mg BID PO Last administered on 01/08/17 20:14; Start at 22:00 Sertraline HCl (Zoloft) 100 mg DAILY PO Last administered on 01/08/17 10:25; Start 12/29/16 at 09:00 Albuterol Sulfate (Ventolin Hfa) 2 puff PRN Q4HRS PRN IH SHORTNESS OF BREATH; Start 12/28/16 at 21:15; Status UNV Amlodipine Besylate (Norvasc) 2.5 mg DAILY PO Last administered on 01/02/17 07: 59; Start 12/29/16 at 09:00; Stop 01/02/17 at 13:01; Status DC Carvedilol (Coreg) 12.5 mg BIDWMEALS PO Last administered on 01/08/17 16:29; Start 12/29/16 at 08:00 Lisinopril (Prinivil) 20 mg BID PO Last administered on 01/08/17 20:15; Start 12/29/16 at 09:00 Nitroglycerin (Nitrostat) 0.4 mg PRN Q5MIN PRN SL CHEST PAIN; Start 12/28/16 at 21:15 Potassium Chloride (Micro-K) 10 meq DAILY PO Last administered on 01/08/17 10: 25; Start 12/29/16 at 09:00 Torsemide (Demadex) 20 mg DAILY PO Last administered on 01/08/17 10:26; Start 12/29/16 at 09:00 Famotidine (Pepcid) 20 mg BIDBFRMEAL PO Last administered on 01/08/17 16:29; Start 12/28/16 at 22:00 Albuterol Sulfate (Ventolin) 2.5 mg PRN Q4HRS PRN NEB SHORTNESS OF BREATH; Start 12/28/16 at 21:30 Quetiapine Fumarate (SEROquel) 12.5 mg BID PO Last administered on 01/05/17 08: 03; Start 12/29/16 at 21:00; Stop 01/05/17 at 18:34; Status DC Prenat Multivit/ [place]/Iron/Folic Ac (Multivitamin ) 1 tab DAILYBFRSUP PO Last administered on 01/08/17 10:24; Start 12/30/16 at 17:00 Vitamin D (Vitamin D3) 50,000 unit WEEKLY PO ; Start 12/30/16 at 12:00; Stop 12/30 at 12:10; Status DC Cyanocobalamin (Vitamin B-12) 1,000 mcg [id number] IM Last administered on 13:32; Start 12/30/16 at 12:30 Vitamin D (Vitamin D3) 50,000 unit WEEKLY PO Last administered on 01/06/17 07: 52; Start 12/30/16 at 12:30 Levothyroxine Sodium (Synthroid) 25 mcg DAILY07 PO Last administered on 05:05; Start 12/31/16 at 07:00 Atorvastatin Calcium (Lipitor) 20 mg QHS PO Last administered on 01/08/17 20: 14; Start 12/30/16 at 21:00 Mirtazapine (Remeron) 7.5 mg QHS PO Last administered on 01/08/17 20:15; Start 01/01/17 at 21:00 Amlodipine Besylate (Norvasc) 5 mg DAILY PO Last administered on 01/08/17 10: 43; Start 01/03/17 at 09:00 Quetiapine Fumarate (SEROquel) 12.5 mg TID PO Last administered on 01/07/17 14 :28; Start 01/05/17 at 21:00; Stop 01/07/17 at 18:32; Status DC Quetiapine Fumarate (SEROquel) 12.5 mg QID PO Last administered on 01/08/17 10 :27; Start 01/07/17 at 21:00; Stop 01/08/17 at 10:42; Status DC Quetiapine Fumarate (SEROquel) 25 mg TID PO Last administered on 01/08/17 20: 15; Start 01/08/17 at 14:00 Divalproex Sodium (Depakote Sprinkles) 125 mg BID PO Last administered on 20:16; Start 01/08/17 at 21:00 Active Scripts Active Reported Abilify (Aripiprazole) 5 Mg Tablet 5 Mg PO QHS Zoloft (Sertraline Hcl) 100 Mg Tablet 100 Mg PO DAILY Lorazepam 1 Mg Tablet 1 Mg PO TID PRN PRN Nitrostat (Nitroglycerin) 0.4 Mg Tab.subl 0.4 Mg SL PRN Q5MIN PRN May Repeat x 3 doses, Notify PCP if Chest pain is unresolved Ventolin Hfa Inhaler (Albuterol Sulfate) 18 Gm Hfa.aer.ad 2 Puff IH PRN Q4HRS PRN Ranitidine Hcl 150 Mg Capsule 150 Mg PO BIDBFRMEAL Klor-Con Sprinkle (Potassium Chloride) 10 Meq Capsule.er 10 Meq PO DAILY Torsemide 20 Mg Tablet 20 Mg PO DAILY Norvasc (Amlodipine Besylate) 2.5 Mg Tablet 2.5 Mg PO DAILY Namenda (Memantine Hcl) 10 Mg Tablet 10 Mg PO BID Carvedilol 12.5 Mg Tablet 12.5 Mg PO BID Lisinopril 20 Mg Tablet 20 Mg PO BID Melatonin 3 Mg Tablet 3 Mg PO QHS Aricept (Donepezil Hcl) 10 Mg Tablet 10 Mg PO QHS WOO GALINDO MD January 08, 2017 20:55
[2017-01-09] MEDS: LEVOTHYROXINE 25 MCG TABLET. PO SCH (06:04)
[2017-01-09 06:25] VITALS: BP 145/83
[2017-01-09] MEDS: QUEtiapine 25 MG TABLET. PO SCH ×3 (07:52→19:40)
[2017-01-09] MEDS: amLODIPine BESYLATE 5 MG TABLET PO SCH (07:52)
[2017-01-09] MEDS: DIVALPROEX 125 MG CAP.SPRINK PO SCH ×2 (07:52→19:39)
[2017-01-09] MEDS: SERTRALINE 100 MG TABLET. PO SCH (07:52)
[2017-01-09] MEDS: MEMANTINE 10 MG TABLET. PO SCH ×2 (07:52→19:41)
[2017-01-09] MEDS: FAMOTIDINE 20 MG TABLET PO SCH ×2 (07:52→17:24)
[2017-01-09] MEDS: POTASSIUM CHLORIDE 10 MEQ CAPSULE.ER. PO SCH (07:52)
[2017-01-09] MEDS: LISINOPRIL 20 MG TABLET PO SCH ×2 (07:52→19:41)
[2017-01-09] MEDS: TORSEMIDE 20 MG TABLET. PO SCH (07:53)
[2017-01-09] MEDS: CARVEDILOL 12.5 MG TABLET PO SCH ×2 (07:53→17:24)
[2017-01-09 15:25] VITALS: BP 136/87
[2017-01-09] MEDS: PRENATAL MULTIVITAMIN TABLET. PO SCH (17:24)
[2017-01-09] MEDS: MIRTAZAPINE 7.5 MG TABLET. PO SCH (19:40)
[2017-01-09] MEDS: MELATONIN 3 MG TABLET PO SCH (19:41)
[2017-01-09] MEDS: DONEPEZIL HCL 10 MG TABLET PO SCH (19:41)
[2017-01-09] MEDS: ATORVASTATIN CALCIUM 20 MG TABLET PO SCH (19:41)
--- NOTE | 2017-01-09 20:54 | PDOC ---
Exam Guru Demential Exam: Guru Note: Please also refer to the separate dictated note~for this date of service dictated separately.~Patient seen individually. Discussed the patient with Nursing staff reviewed the chart.~Reviewed interim history and current functioning. Reviewed vital signs,~Labs/ Radiology~and current medications noted below. Continue current treatment with the changes noted in the dictated addendum note Assessment: Vital Signs: Vital Signs Date Time Temp Pulse Resp B/P (MAP) Pulse Ox O2 Delivery O2 Flow Rate FiO2 01/09/17 19:41 71 136/87 01/09/17 15:25 97.9 18 97 I&O Intake and Output 01/09/17 07:00 Intake Total 960 ml Output Total 1 ml Balance 959 ml Intake Oral 960 ml Output Urine Total 1 ml Current Medications: Meds: Current Medications Acetaminophen (Tylenol) 650 mg PRN Q6HRS PRN PO MILD PAIN / TEMP Last administered on 01/04/17 10:52; Start 12/28/16 at 21:15 Multi-Ingredient Ointment (Analgesic [place]) 1 baldo PRN QID PRN TP MUSCLE PAIN; Start 12/28/16 at 21:15 Al Hydroxide/Mg Hydroxide (Mylanta Plus Xs) 15 ml PRN AFTMEALHC PRN PO DYSPEPSIA; Start 12/28/16 at 21:15 Magnesium Hydroxide (Milk Of Magnesia) 2,400 mg PRN QHS PRN PO CONSTIPATION; Start 12/28/16 at 21:15 Aripiprazole (Abilify) 5 mg QHS PO Last administered on 12/28/16 22:15; Start 12/28/16 at 22:00; Stop 12/29/16 at 19:06; Status DC Donepezil HCl (Aricept) 10 mg QHS PO Last administered on 01/09/17 19:41; Start 12/28/16 at 22:00 Lorazepam (Ativan) 1 mg TID PRN PRN PO ANXIETY / AGITATION Last administered on 01/08/17 07:20; Start 12/28/16 at 21:15 Melatonin 3 mg QHS PO Last administered on 01/09/17 19:41; Start 12/28/16 at 22:00 Memantine (Namenda) 10 mg BID PO Last administered on 01/09/17 19:41; Start at 22:00 Sertraline HCl (Zoloft) 100 mg DAILY PO Last administered on 01/09/17 07:52; Start 12/29/16 at 09:00 Albuterol Sulfate (Ventolin Hfa) 2 puff PRN Q4HRS PRN IH SHORTNESS OF BREATH; Start 12/28/16 at 21:15; Status UNV Amlodipine Besylate (Norvasc) 2.5 mg DAILY PO Last administered on 01/02/17 07: 59; Start 12/29/16 at 09:00; Stop 01/02/17 at 13:01; Status DC Carvedilol (Coreg) 12.5 mg BIDWMEALS PO Last administered on 01/09/17 17:24; Start 12/29/16 at 08:00 Lisinopril (Prinivil) 20 mg BID PO Last administered on 01/09/17 19:41; Start 12/29/16 at 09:00 Nitroglycerin (Nitrostat) 0.4 mg PRN Q5MIN PRN SL CHEST PAIN; Start 12/28/16 at 21:15 Potassium Chloride (Micro-K) 10 meq DAILY PO Last administered on 01/09/17 07: 52; Start 12/29/16 at 09:00 Torsemide (Demadex) 20 mg DAILY PO Last administered on 01/09/17 07:53; Start 12/29/16 at 09:00 Famotidine (Pepcid) 20 mg BIDBFRMEAL PO Last administered on 01/09/17 17:24; Start 12/28/16 at 22:00 Albuterol Sulfate (Ventolin) 2.5 mg PRN Q4HRS PRN NEB SHORTNESS OF BREATH; Start 12/28/16 at 21:30 Quetiapine Fumarate (SEROquel) 12.5 mg BID PO Last administered on 01/05/17 08: 03; Start 12/29/16 at 21:00; Stop 01/05/17 at 18:34; Status DC Prenat Multivit/ [place]/Iron/Folic Ac (Multivitamin ) 1 tab DAILYBFRSUP PO Last administered on 01/09/17 17:24; Start 12/30/16 at 17:00 Vitamin D (Vitamin D3) 50,000 unit WEEKLY PO ; Start 12/30/16 at 12:00; Stop 12/30 at 12:10; Status DC Cyanocobalamin (Vitamin B-12) 1,000 mcg [id number] IM Last administered on 13:32; Start 12/30/16 at 12:30 Vitamin D (Vitamin D3) 50,000 unit WEEKLY PO Last administered on 01/06/17 07: 52; Start 12/30/16 at 12:30 Levothyroxine Sodium (Synthroid) 25 mcg DAILY07 PO Last administered on 06:04; Start 12/31/16 at 07:00 Atorvastatin Calcium (Lipitor) 20 mg QHS PO Last administered on 01/09/17 19: 41; Start 12/30/16 at 21:00 Mirtazapine (Remeron) 7.5 mg QHS PO Last administered on 01/09/17 19:40; Start 01/01/17 at 21:00 Amlodipine Besylate (Norvasc) 5 mg DAILY PO Last administered on 01/09/17 07: 52; Start 01/03/17 at 09:00 Quetiapine Fumarate (SEROquel) 12.5 mg TID PO Last administered on 01/07/17 14 :28; Start 01/05/17 at 21:00; Stop 01/07/17 at 18:32; Status DC Quetiapine Fumarate (SEROquel) 12.5 mg QID PO Last administered on 01/08/17 10 :27; Start 01/07/17 at 21:00; Stop 01/08/17 at 10:42; Status DC Quetiapine Fumarate (SEROquel) 25 mg TID PO Last administered on 01/09/17 19: 40; Start 01/08/17 at 14:00 Divalproex Sodium (Depakote Sprinkles) 125 mg BID PO Last administered on 19:39; Start 01/08/17 at 21:00 Active Scripts Active Reported Abilify (Aripiprazole) 5 Mg Tablet 5 Mg PO QHS Zoloft (Sertraline Hcl) 100 Mg Tablet 100 Mg PO DAILY Lorazepam 1 Mg Tablet 1 Mg PO TID PRN PRN Nitrostat (Nitroglycerin) 0.4 Mg Tab.subl 0.4 Mg SL PRN Q5MIN PRN May Repeat x 3 doses, Notify PCP if Chest pain is unresolved Ventolin Hfa Inhaler (Albuterol Sulfate) 18 Gm Hfa.aer.ad 2 Puff IH PRN Q4HRS PRN Ranitidine Hcl 150 Mg Capsule 150 Mg PO BIDBFRMEAL Klor-Con Sprinkle (Potassium Chloride) 10 Meq Capsule.er 10 Meq PO DAILY Torsemide 20 Mg Tablet 20 Mg PO DAILY Norvasc (Amlodipine Besylate) 2.5 Mg Tablet 2.5 Mg PO DAILY Namenda (Memantine Hcl) 10 Mg Tablet 10 Mg PO BID Carvedilol 12.5 Mg Tablet 12.5 Mg PO BID Lisinopril 20 Mg Tablet 20 Mg PO BID Melatonin 3 Mg Tablet 3 Mg PO QHS Aricept (Donepezil Hcl) 10 Mg Tablet 10 Mg PO QHS WOO GALINDO MD January 09, 2017 20:54
--- NOTE | 2017-01-10 03:06 | PN ---
DATE: 01/08/2017 This is a late entry 01/08/2017, covers the elements not covered in my initial note. SUBJECTIVE: The patient was staffed at treatment team meeting with the entire team seen individually evening of 01/08/2017. Sleeping about 6 hours. Appetite 95%, more exit seeking in the evening. He has some good days and bad days, received Ativan at 7 a.m. on 01/08/2017. REVIEW OF SYSTEMS: No CV, , eye, ENT or pulmonary system symptoms on review. Reliability poor. MENTAL STATUS EXAM: Oriented to himself. Insight, judgment, recent and remote memory, attention, concentration, fund of knowledge poor, consistent with his diagnosis. IMPRESSION: Major neurocognitive disorder, Alzheimer, vascular with depression, delusion, behavioral disturbance. Rest diagnoses unchanged. PLAN: Increase Seroquel from 12.5 q.i.d. to 25 t.i.d.; Zoloft, continue 100 mg a day; start Depakote 125 mg twice a day. Follow labs level in 3 days. Continue Aricept 10 mg a day, melatonin 3 mg at bedtime, Namenda 10 b.i.d., Ativan p.r.n., Remeron 7.5 at bedtime. MAN Frederick GALINDO MD DR: JOCELYN/rhea JOB#: [id number] / [id number]
--- NOTE | 2017-01-10 03:26 | PN ---
DATE: 01/07/2017 This late entry for 01/07/2017 covers elements not covered in my initial note. SUBJECTIVE: The patient slept about 7-1/2 hours. Per nursing report, he takes his medications whole, gets anxious, agitated, exit seeking in the evening, received Ativan at lunchtime due to increased anxiety. REVIEW OF SYSTEMS: No CV, , pulmonary, eye, ENT system symptoms on review. Reliability poor. MENTAL STATUS EXAM: Oriented to himself. Insight, judgment, recent and remote memory, attention, concentration, fund of knowledge poor, consistent with his diagnosis mentioned in my initial note. PLAN: Increase Seroquel from 12.5 t.i.d. to 12.5 q.i.d. Maintain Zoloft 100 a day, Aricept 10 mg a day, melatonin 3 mg at bedtime, Namenda 10 b.i.d., Ativan p.r.n., Remeron 7.5 mg at bedtime. Adjust further as clinically indicated. MAN Frederick GALINDO MD DR: JOCELYN/rhea JOB#: [id number] / [id number]
[2017-01-10] MEDS: LORazepam 1 MG TABLET PO PRN ×2 (04:22→22:16)
[2017-01-10] MEDS: LEVOTHYROXINE 25 MCG TABLET. PO SCH (05:55)
[2017-01-10] MEDS: FAMOTIDINE 20 MG TABLET PO SCH ×2 (08:55→16:47)
[2017-01-10] MEDS: DIVALPROEX 125 MG CAP.SPRINK PO SCH ×2 (08:56→20:13)
[2017-01-10] MEDS: MEMANTINE 10 MG TABLET. PO SCH ×2 (08:56→20:12)
[2017-01-10] MEDS: POTASSIUM CHLORIDE 10 MEQ CAPSULE.ER. PO SCH (08:56)
[2017-01-10] MEDS: TORSEMIDE 20 MG TABLET. PO SCH (08:56)
[2017-01-10] MEDS: QUEtiapine 25 MG TABLET. PO SCH ×3 (08:58→20:12)
[2017-01-10] MEDS: SERTRALINE 100 MG TABLET. PO SCH (08:58)
[2017-01-10] MEDS: PRENATAL MULTIVITAMIN TABLET. PO SCH (08:59)
[2017-01-10] MEDS: amLODIPine BESYLATE 5 MG TABLET PO SCH (09:17)
[2017-01-10] MEDS: CARVEDILOL 12.5 MG TABLET PO SCH ×2 (09:17→16:48)
[2017-01-10] MEDS: LISINOPRIL 20 MG TABLET PO SCH ×2 (09:18→20:13)
[2017-01-10 15:53] VITALS: BP 163/84
[2017-01-10] MEDS: DONEPEZIL HCL 10 MG TABLET PO SCH (20:13)
[2017-01-10] MEDS: MIRTAZAPINE 7.5 MG TABLET. PO SCH (20:13)
[2017-01-10] MEDS: MELATONIN 3 MG TABLET PO SCH (20:13)
[2017-01-10] MEDS: ATORVASTATIN CALCIUM 20 MG TABLET PO SCH (20:13)
--- NOTE | 2017-01-10 20:41 | PDOC ---
Exam Guru Demential Exam: Guru Note: Please also refer to the separate dictated note~for this date of service dictated separately.~Patient seen individually. Discussed the patient with Nursing staff reviewed the chart.~Reviewed interim history and current functioning. Reviewed vital signs,~Labs/ Radiology~and current medications noted below. Continue current treatment with the changes noted in the dictated addendum note Assessment: Vital Signs: Vital Signs Date Time Temp Pulse Resp B/P (MAP) Pulse Ox O2 Delivery O2 Flow Rate FiO2 01/10/17 20:13 80 163/84 01/10/17 15:53 97.1 18 97 I&O Intake and Output 01/10/17 07:00 Intake Total 1200 ml Output Total 1 ml Balance 1199 ml Intake Oral 1200 ml Output Urine Total 1 ml Current Medications: Meds: Current Medications Acetaminophen (Tylenol) 650 mg PRN Q6HRS PRN PO MILD PAIN / TEMP Last administered on 01/04/17 10:52; Start 12/28/16 at 21:15 Multi-Ingredient Ointment (Analgesic [place]) 1 baldo PRN QID PRN TP MUSCLE PAIN; Start 12/28/16 at 21:15 Al Hydroxide/Mg Hydroxide (Mylanta Plus Xs) 15 ml PRN AFTMEALHC PRN PO DYSPEPSIA; Start 12/28/16 at 21:15 Magnesium Hydroxide (Milk Of Magnesia) 2,400 mg PRN QHS PRN PO CONSTIPATION; Start 12/28/16 at 21:15 Aripiprazole (Abilify) 5 mg QHS PO Last administered on 12/28/16 22:15; Start 12/28/16 at 22:00; Stop 12/29/16 at 19:06; Status DC Donepezil HCl (Aricept) 10 mg QHS PO Last administered on 01/10/17 20:13; Start 12/28/16 at 22:00 Lorazepam (Ativan) 1 mg TID PRN PRN PO ANXIETY / AGITATION Last administered on 01/10/17 04:22; Start 12/28/16 at 21:15 Melatonin 3 mg QHS PO Last administered on 01/10/17 20:13; Start 12/28/16 at 22:00 Memantine (Namenda) 10 mg BID PO Last administered on 01/10/17 20:12; Start at 22:00 Sertraline HCl (Zoloft) 100 mg DAILY PO Last administered on 01/10/17 08:58; Start 12/29/16 at 09:00 Albuterol Sulfate (Ventolin Hfa) 2 puff PRN Q4HRS PRN IH SHORTNESS OF BREATH; Start 12/28/16 at 21:15; Status UNV Amlodipine Besylate (Norvasc) 2.5 mg DAILY PO Last administered on 01/02/17 07: 59; Start 12/29/16 at 09:00; Stop 01/02/17 at 13:01; Status DC Carvedilol (Coreg) 12.5 mg BIDWMEALS PO Last administered on 01/10/17 16:48; Start 12/29/16 at 08:00 Lisinopril (Prinivil) 20 mg BID PO Last administered on 01/10/17 20:13; Start 12/29/16 at 09:00 Nitroglycerin (Nitrostat) 0.4 mg PRN Q5MIN PRN SL CHEST PAIN; Start 12/28/16 at 21:15 Potassium Chloride (Micro-K) 10 meq DAILY PO Last administered on 01/10/17 08: 56; Start 12/29/16 at 09:00 Torsemide (Demadex) 20 mg DAILY PO Last administered on 01/10/17 08:56; Start 12/29/16 at 09:00 Famotidine (Pepcid) 20 mg BIDBFRMEAL PO Last administered on 01/10/17 16:47; Start 12/28/16 at 22:00 Albuterol Sulfate (Ventolin) 2.5 mg PRN Q4HRS PRN NEB SHORTNESS OF BREATH; Start 12/28/16 at 21:30 Quetiapine Fumarate (SEROquel) 12.5 mg BID PO Last administered on 01/05/17 08: 03; Start 12/29/16 at 21:00; Stop 01/05/17 at 18:34; Status DC Prenat Multivit/ Disability Rater/Iron/Folic Ac (Multivitamin ) 1 tab DAILYBFRSUP PO Last administered on 01/10/17 08:59; Start 12/30/16 at 17:00 Vitamin D (Vitamin D3) 50,000 unit WEEKLY PO ; Start 12/30/16 at 12:00; Stop 12/30 at 12:10; Status DC Cyanocobalamin (Vitamin B-12) 1,000 mcg [id number] IM Last administered on 13:32; Start 12/30/16 at 12:30 Vitamin D (Vitamin D3) 50,000 unit WEEKLY PO Last administered on 01/06/17 07: 52; Start 12/30/16 at 12:30 Levothyroxine Sodium (Synthroid) 25 mcg DAILY07 PO Last administered on 05:55; Start 12/31/16 at 07:00 Atorvastatin Calcium (Lipitor) 20 mg QHS PO Last administered on 01/10/17 20: 13; Start 12/30/16 at 21:00 Mirtazapine (Remeron) 7.5 mg QHS PO Last administered on 01/10/17 20:13; Start 01/01/17 at 21:00 Amlodipine Besylate (Norvasc) 5 mg DAILY PO Last administered on 01/09/17 07: 52; Start 01/03/17 at 09:00 Quetiapine Fumarate (SEROquel) 12.5 mg TID PO Last administered on 01/07/17 14 :28; Start 01/05/17 at 21:00; Stop 01/07/17 at 18:32; Status DC Quetiapine Fumarate (SEROquel) 12.5 mg QID PO Last administered on 01/08/17 10 :27; Start 01/07/17 at 21:00; Stop 01/08/17 at 10:42; Status DC Quetiapine Fumarate (SEROquel) 25 mg TID PO Last administered on 01/10/17 20: 12; Start 01/08/17 at 14:00 Divalproex Sodium (Depakote Sprinkles) 125 mg BID PO Last administered on 20:13; Start 01/08/17 at 21:00 Active Scripts Active Reported Abilify (Aripiprazole) 5 Mg Tablet 5 Mg PO QHS Zoloft (Sertraline Hcl) 100 Mg Tablet 100 Mg PO DAILY Lorazepam 1 Mg Tablet 1 Mg PO TID PRN PRN Nitrostat (Nitroglycerin) 0.4 Mg Tab.subl 0.4 Mg SL PRN Q5MIN PRN May Repeat x 3 doses, Notify PCP if Chest pain is unresolved Ventolin Hfa Inhaler (Albuterol Sulfate) 18 Gm Hfa.aer.ad 2 Puff IH PRN Q4HRS PRN Ranitidine Hcl 150 Mg Capsule 150 Mg PO BIDBFRMEAL Klor-Con Sprinkle (Potassium Chloride) 10 Meq Capsule.er 10 Meq PO DAILY Torsemide 20 Mg Tablet 20 Mg PO DAILY Norvasc (Amlodipine Besylate) 2.5 Mg Tablet 2.5 Mg PO DAILY Namenda (Memantine Hcl) 10 Mg Tablet 10 Mg PO BID Carvedilol 12.5 Mg Tablet 12.5 Mg PO BID Lisinopril 20 Mg Tablet 20 Mg PO BID Melatonin 3 Mg Tablet 3 Mg PO QHS Aricept (Donepezil Hcl) 10 Mg Tablet 10 Mg PO QHS Diagnosis: Problems: (1) Dementia with behavioral disturbance (2) Anxiety disorder (3) Dementia, vascular, with depression (4) Dementia, vascular, 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
--- NOTE | 2017-01-11 01:43 | PN ---
DATE: 01/09/2017 PSYCHIATRIC PROGRESS NOTE This is a late entry for 01/09/2017, covers elements not covered in my initial note. SUBJECTIVE: Overall, the patient remains confused, wanders the hallways, exit seeking at times, redirects. REVIEW OF SYSTEMS: No CV, , eye, ENT or pulmonary system symptoms on review. Reliability poor. MENTAL STATUS EXAM: Oriented to himself. Insight, judgment, recent and remote memory, attention, concentration, fund of knowledge poor, consistent with his diagnosis. As I met with him, he was oblivious of his surroundings, felt he was in [place] when I informed him who I was after he asked me that question. He felt we were in [place] and I was a new doctor in [place]. Quite disorganized, but redirectable. IMPRESSION: Unchanged from initial note. PLAN: Continue current psychotropics. We will check labs and a valproic acid level on 01/11/2017. Adjust further thereafter. MAN Frederick GALINDO MD DR: JOCELYN/rhea JOB#: [id number] / [id number]
[2017-01-11] MEDS: LEVOTHYROXINE 25 MCG TABLET. PO SCH ×2 (05:27→06:20)
[2017-01-11 06:26] VITALS: BP 142/81
[2017-01-11 07:42] LABS: BASO # 0.1 x10^3/uL (0.0-0.2); BASO % 1 % (0-3); EOS # 0.1 x10^3/uL (0.0-0.7); EOS % 1 % (0-3); HEMATOCRIT 37.3 % (39.0-53.0); HEMOGLOBIN 12.8 g/dL (13.0-17.5); LYMPH # 2.4 x10^3/uL (1.0-4.8); LYMPH % 28 % (24-48); MEAN CORPUSCULAR HEMOGLOBIN 29 pg (25-35); MEAN CORPUSCULAR HGB CONC 34 g/dL (31-37); MEAN CORPUSCULAR VOLUME 84 fL (79-100); MONO # 0.8 x10^3/uL (0.0-1.1); MONO % 9 % (0-9); NEUT # 5.3 x10^3uL (1.8-7.7); NEUT % 61 % (31-73); PLATELET COUNT 164 x10^3/uL (140-400); RED BLOOD COUNT 4.43 x10^6/uL (4.30-5.70); RED CELL DISTRIBUTION WIDTH 13.9 % (11.5-14.5); WHITE BLOOD COUNT 8.6 x10^3/uL (4.0-11.0)
[2017-01-11 07:47] LABS: ALBUMIN 3.5 g/dL (3.4-5.0); ALBUMIN/GLOBULIN RATIO 1.1 (1.0-1.7); ALK PHOS 72 U/L (46-116); ALT (SGPT) 26 U/L (16-63); ANION GAP 7 (6-14); AST (SGOT) 21 U/L (15-37); BLOOD UREA NITROGEN 25 mg/dL (8-26); BUN/CREATININE RATIO 21 (6-20); CALCIUM 9.2 mg/dL (8.5-10.1); CARBON DIOXIDE 32 mmol/L (21-32); CHLORIDE 108 mmol/L (98-107); CREATININE 1.2 mg/dL (0.7-1.3); GFR 58.4; GLUCOSE 90 mg/dL (70-99); POTASSIUM 3.8 mmol/L (3.5-5.1); SODIUM 147 mmol/L (136-145); TOTAL BILIRUBIN 0.4 mg/dL (0.2-1.0); TOTAL PROTEIN 6.6 g/dL (6.4-8.2)
[2017-01-11 07:49] LABS: VAL ACID 23 mcg/mL (50-100)
[2017-01-11] MEDS: amLODIPine BESYLATE 5 MG TABLET PO SCH ×2 (09:00→09:10)
[2017-01-11] MEDS: FAMOTIDINE 20 MG TABLET PO SCH ×2 (09:09→16:59)
[2017-01-11] MEDS: MEMANTINE 10 MG TABLET. PO SCH ×3 (09:10→21:00)
[2017-01-11] MEDS: TORSEMIDE 20 MG TABLET. PO SCH (09:10)
[2017-01-11] MEDS: DIVALPROEX 125 MG CAP.SPRINK PO SCH ×3 (09:10→21:00)
[2017-01-11] MEDS: POTASSIUM CHLORIDE 10 MEQ CAPSULE.ER. PO SCH (09:10)
[2017-01-11] MEDS: LISINOPRIL 20 MG TABLET PO SCH ×3 (09:11→21:00)
[2017-01-11] MEDS: QUEtiapine 25 MG TABLET. PO SCH ×4 (09:11→21:00)
[2017-01-11] MEDS: SERTRALINE 100 MG TABLET. PO SCH (09:11)
[2017-01-11] MEDS: PRENATAL MULTIVITAMIN TABLET. PO SCH (09:12)
[2017-01-11] MEDS: CARVEDILOL 12.5 MG TABLET PO SCH ×2 (09:20→16:59)
[2017-01-11 16:13] VITALS: BP 152/53
[2017-01-11] MEDS: MELATONIN 3 MG TABLET PO SCH ×2 (19:44→21:00)
[2017-01-11] MEDS: DONEPEZIL HCL 10 MG TABLET PO SCH ×2 (19:46→21:00)
[2017-01-11] MEDS: ATORVASTATIN CALCIUM 20 MG TABLET PO SCH ×2 (19:46→21:00)
[2017-01-11] MEDS: MIRTAZAPINE 7.5 MG TABLET. PO SCH ×2 (19:46→21:00)
[2017-01-11] MEDS: LORazepam 1 MG TABLET PO PRN (19:49)
--- NOTE | 2017-01-11 20:02 | PDOC ---
Exam Guru Demential Exam: Guru Note: Please also refer to the separate dictated note~for this date of service dictated separately.~Patient seen individually. Discussed the patient with Nursing staff reviewed the chart.~Reviewed interim history and current functioning. Reviewed vital signs,~Labs/ Radiology~and current medications noted below. Continue current treatment with the changes noted in the dictated addendum note Assessment: Vital Signs: Vital Signs Date Time Temp Pulse Resp B/P (MAP) Pulse Ox O2 Delivery O2 Flow Rate FiO2 01/11/17 19:47 70 152/53 01/11/17 16:13 97.8 20 97 I&O Intake and Output 01/11/17 07:00 Intake Total 1200 ml Output Total 1 ml Balance 1199 ml Intake Oral 1200 ml Output Urine Total 1 ml Labs: Laboratory Tests Test 01/11/17 07:00 White Blood Count 8.6 x10^3/uL (4.0-11.0) Red Blood Count 4.43 x10^6/uL (4.30-5.70) Hemoglobin 12.8 g/dL (13.0-17.5) L Hematocrit 37.3 % (39.0-53.0) L Mean Corpuscular Volume 84 fL (79-100) Mean Corpuscular Hemoglobin 29 pg (25-35) Mean Corpuscular Hemoglobin Concent 34 g/dL (31-37) Red Cell Distribution Width 13.9 % (11.5-14.5) Platelet Count 164 x10^3/uL (140-400) Neutrophils (%) (Auto) 61 % (31-73) Lymphocytes (%) (Auto) 28 % (24-48) Monocytes (%) (Auto) 9 % (0-9) Eosinophils (%) (Auto) 1 % (0-3) Basophils (%) (Auto) 1 % (0-3) Neutrophils # (Auto) 5.3 x10^3uL (1.8-7.7) Lymphocytes # (Auto) 2.4 x10^3/uL (1.0-4.8) Monocytes # (Auto) 0.8 x10^3/uL (0.0-1.1) Eosinophils # (Auto) 0.1 x10^3/uL (0.0-0.7) Basophils # (Auto) 0.1 x10^3/uL (0.0-0.2) Sodium Level 147 mmol/L (136-145) H Potassium Level 3.8 mmol/L (3.5-5.1) Chloride Level 108 mmol/L (98-107) H Carbon Dioxide Level 32 mmol/L (21-32) Anion Gap 7 (6-14) Blood Urea Nitrogen 25 mg/dL (8-26) Creatinine 1.2 mg/dL (0.7-1.3) Estimated GFR (Cockcroft-Gault) 58.4 BUN/Creatinine Ratio 21 (6-20) H Glucose Level 90 mg/dL (70-99) Calcium Level 9.2 mg/dL (8.5-10.1) Total Bilirubin 0.4 mg/dL (0.2-1.0) Aspartate Amino Transferase (AST) 21 U/L (15-37) Alanine Aminotransferase (ALT) 26 U/L (16-63) Alkaline Phosphatase 72 U/L (46-116) Total Protein 6.6 g/dL (6.4-8.2) Albumin 3.5 g/dL (3.4-5.0) Albumin/Globulin Ratio 1.1 (1.0-1.7) Valproic Acid Level 23 mcg/mL (50-100) L Valproic Acid Last Dose Date 01/10/2017 Valproic Acid Last Dose Time 2100 Current Medications: Meds: Current Medications Acetaminophen (Tylenol) 650 mg PRN Q6HRS PRN PO MILD PAIN / TEMP Last administered on 01/04/17 10:52; Start 12/28/16 at 21:15 Multi-Ingredient Ointment (Analgesic [place]) 1 baldo PRN QID PRN TP MUSCLE PAIN; Start 12/28/16 at 21:15 Al Hydroxide/Mg Hydroxide (Mylanta Plus Xs) 15 ml PRN AFTMEALHC PRN PO DYSPEPSIA; Start 12/28/16 at 21:15 Magnesium Hydroxide (Milk Of Magnesia) 2,400 mg PRN QHS PRN PO CONSTIPATION; Start 12/28/16 at 21:15 Aripiprazole (Abilify) 5 mg QHS PO Last administered on 12/28/16 22:15; Start 12/28/16 at 22:00; Stop 12/29/16 at 19:06; Status DC Donepezil HCl (Aricept) 10 mg QHS PO Last administered on 01/11/17 19:46; Start 12/28/16 at 22:00 Lorazepam (Ativan) 1 mg TID PRN PRN PO ANXIETY / AGITATION Last administered on 01/11/17 19:49; Start 12/28/16 at 21:15 Melatonin 3 mg QHS PO Last administered on 01/11/17 19:44; Start 12/28/16 at 22:00 Memantine (Namenda) 10 mg BID PO Last administered on 01/11/17 19:46; Start at 22:00 Sertraline HCl (Zoloft) 100 mg DAILY PO Last administered on 01/11/17 09:11; Start 12/29/16 at 09:00 Albuterol Sulfate (Ventolin Hfa) 2 puff PRN Q4HRS PRN IH SHORTNESS OF BREATH; Start 12/28/16 at 21:15; Status UNV Amlodipine Besylate (Norvasc) 2.5 mg DAILY PO Last administered on 01/02/17 07: 59; Start 12/29/16 at 09:00; Stop 01/02/17 at 13:01; Status DC Carvedilol (Coreg) 12.5 mg BIDWMEALS PO Last administered on 01/11/17 16:59; Start 12/29/16 at 08:00 Lisinopril (Prinivil) 20 mg BID PO Last administered on 01/11/17 19:47; Start 12/29/16 at 09:00 Nitroglycerin (Nitrostat) 0.4 mg PRN Q5MIN PRN SL CHEST PAIN; Start 12/28/16 at 21:15 Potassium Chloride (Micro-K) 10 meq DAILY PO Last administered on 01/11/17 09: 10; Start 12/29/16 at 09:00 Torsemide (Demadex) 20 mg DAILY PO Last administered on 01/11/17 09:10; Start 12/29/16 at 09:00 Famotidine (Pepcid) 20 mg BIDBFRMEAL PO Last administered on 01/11/17 16:59; Start 12/28/16 at 22:00 Albuterol Sulfate (Ventolin) 2.5 mg PRN Q4HRS PRN NEB SHORTNESS OF BREATH; Start 12/28/16 at 21:30 Quetiapine Fumarate (SEROquel) 12.5 mg BID PO Last administered on 01/05/17 08: 03; Start 12/29/16 at 21:00; Stop 01/05/17 at 18:34; Status DC Prenat Multivit/ Slurry Control Tender/Iron/Folic Ac (Multivitamin ) 1 tab DAILYBFRSUP PO Last administered on 01/11/17 09:12; Start 12/30/16 at 17:00 Vitamin D (Vitamin D3) 50,000 unit WEEKLY PO ; Start 12/30/16 at 12:00; Stop 12/30 at 12:10; Status DC Cyanocobalamin (Vitamin B-12) 1,000 mcg [id number] IM Last administered on 13:32; Start 12/30/16 at 12:30 Vitamin D (Vitamin D3) 50,000 unit WEEKLY PO Last administered on 01/06/17 07: 52; Start 12/30/16 at 12:30 Levothyroxine Sodium (Synthroid) 25 mcg DAILY07 PO Last administered on 05:55; Start 12/31/16 at 07:00 Atorvastatin Calcium (Lipitor) 20 mg QHS PO Last administered on 01/11/17 19: 46; Start 12/30/16 at 21:00 Mirtazapine (Remeron) 7.5 mg QHS PO Last administered on 01/11/17 19:46; Start 01/01/17 at 21:00 Amlodipine Besylate (Norvasc) 5 mg DAILY PO Last administered on 01/11/17 09: 10; Start 01/03/17 at 09:00 Quetiapine Fumarate (SEROquel) 12.5 mg TID PO Last administered on 01/07/17 14 :28; Start 01/05/17 at 21:00; Stop 01/07/17 at 18:32; Status DC Quetiapine Fumarate (SEROquel) 12.5 mg QID PO Last administered on 01/08/17 10 :27; Start 01/07/17 at 21:00; Stop 01/08/17 at 10:42; Status DC Quetiapine Fumarate (SEROquel) 25 mg TID PO Last administered on 01/11/17 19: 46; Start 01/08/17 at 14:00 Divalproex Sodium (Depakote Sprinkles) 125 mg BID PO Last administered on 09:10; Start 01/08/17 at 21:00; Stop 01/11/17 at 18:08; Status DC Olanzapine (Zyprexa Zydis) 2.5 mg PRN Q2HR PRN PO PSYCHOSIS/AGITAION Last administered on 01/11/17 19:49; Start 01/10/17 at 23:00 Divalproex Sodium (Depakote Sprinkles) 125 mg TID PO Last administered on 19:44; Start 01/11/17 at 21:00 Active Scripts Active Reported Abilify (Aripiprazole) 5 Mg Tablet 5 Mg PO QHS Zoloft (Sertraline Hcl) 100 Mg Tablet 100 Mg PO DAILY Lorazepam 1 Mg Tablet 1 Mg PO TID PRN PRN Nitrostat (Nitroglycerin) 0.4 Mg Tab.subl 0.4 Mg SL PRN Q5MIN PRN May Repeat x 3 doses, Notify PCP if Chest pain is unresolved Ventolin Hfa Inhaler (Albuterol Sulfate) 18 Gm Hfa.aer.ad 2 Puff IH PRN Q4HRS PRN Ranitidine Hcl 150 Mg Capsule 150 Mg PO BIDBFRMEAL Klor-Con Sprinkle (Potassium Chloride) 10 Meq Capsule.er 10 Meq PO DAILY Torsemide 20 Mg Tablet 20 Mg PO DAILY Norvasc (Amlodipine Besylate) 2.5 Mg Tablet 2.5 Mg PO DAILY Namenda (Memantine Hcl) 10 Mg Tablet 10 Mg PO BID Carvedilol 12.5 Mg Tablet 12.5 Mg PO BID Lisinopril 20 Mg Tablet 20 Mg PO BID Melatonin 3 Mg Tablet 3 Mg PO QHS Aricept (Donepezil Hcl) 10 Mg Tablet 10 Mg PO QHS WOO GALINDO MD January 11, 2017 20:02
[2017-01-12] MEDS: LEVOTHYROXINE 25 MCG TABLET. PO SCH (04:35)
[2017-01-12 06:28] VITALS: BP 179/82
[2017-01-12] MEDS: CARVEDILOL 12.5 MG TABLET PO SCH ×2 (08:53→17:10)
[2017-01-12] MEDS: MEMANTINE 10 MG TABLET. PO SCH ×2 (08:54→21:00)
[2017-01-12] MEDS: POTASSIUM CHLORIDE 10 MEQ CAPSULE.ER. PO SCH (08:54)
[2017-01-12] MEDS: amLODIPine BESYLATE 5 MG TABLET PO SCH (08:54)
[2017-01-12] MEDS: DIVALPROEX 125 MG CAP.SPRINK PO SCH ×3 (08:54→19:26)
[2017-01-12] MEDS: SERTRALINE 100 MG TABLET. PO SCH (08:54)
[2017-01-12] MEDS: QUEtiapine 25 MG TABLET. PO SCH ×3 (08:54→19:25)
[2017-01-12] MEDS: FAMOTIDINE 20 MG TABLET PO SCH ×2 (08:57→17:09)
[2017-01-12] MEDS: TORSEMIDE 20 MG TABLET. PO SCH (08:57)
[2017-01-12] MEDS: PRENATAL MULTIVITAMIN TABLET. PO SCH (08:58)
[2017-01-12] MEDS: LISINOPRIL 20 MG TABLET PO SCH ×2 (08:58→19:26)
[2017-01-12 16:05] VITALS: BP 130/62
[2017-01-12] MEDS: DONEPEZIL HCL 10 MG TABLET PO SCH (19:25)
[2017-01-12] MEDS: ATORVASTATIN CALCIUM 20 MG TABLET PO SCH (19:25)
[2017-01-12] MEDS: MIRTAZAPINE 7.5 MG TABLET. PO SCH (19:25)
[2017-01-12] MEDS: MELATONIN 3 MG TABLET PO SCH (19:26)
--- NOTE | 2017-01-12 20:58 | PDOC ---
Exam Guru Demential Exam: Guru Note: Please also refer to the separate dictated note~for this date of service dictated separately.~Patient seen individually. Discussed the patient with Nursing staff reviewed the chart.~Reviewed interim history and current functioning. Reviewed vital signs,~Labs/ Radiology~and current medications noted below. Continue current treatment with the changes noted in the dictated addendum note Assessment: Vital Signs: Vital Signs Date Time Temp Pulse Resp B/P (MAP) Pulse Ox O2 Delivery O2 Flow Rate FiO2 01/12/17 19:26 69 130/62 01/12/17 16:05 97.1 20 97 Room Air I&O Intake and Output 01/12/17 07:00 Intake Total 960 ml Balance 960 ml Intake Oral 960 ml # Bowel Movements 1 Current Medications: Meds: Current Medications Acetaminophen (Tylenol) 650 mg PRN Q6HRS PRN PO MILD PAIN / TEMP Last administered on 01/04/17 10:52; Start 12/28/16 at 21:15 Multi-Ingredient Ointment (Analgesic [place]) 1 baldo PRN QID PRN TP MUSCLE PAIN; Start 12/28/16 at 21:15 Al Hydroxide/Mg Hydroxide (Mylanta Plus Xs) 15 ml PRN AFTMEALHC PRN PO DYSPEPSIA; Start 12/28/16 at 21:15 Magnesium Hydroxide (Milk Of Magnesia) 2,400 mg PRN QHS PRN PO CONSTIPATION; Start 12/28/16 at 21:15 Aripiprazole (Abilify) 5 mg QHS PO Last administered on 12/28/16 22:15; Start 12/28/16 at 22:00; Stop 12/29/16 at 19:06; Status DC Donepezil HCl (Aricept) 10 mg QHS PO Last administered on 01/12/17 19:25; Start 12/28/16 at 22:00 Lorazepam (Ativan) 1 mg TID PRN PRN PO ANXIETY / AGITATION Last administered on 01/11/17 19:49; Start 12/28/16 at 21:15 Melatonin 3 mg QHS PO Last administered on 01/12/17 19:26; Start 12/28/16 at 22:00 Memantine (Namenda) 10 mg BID PO Last administered on 01/12/17 08:54; Start at 22:00 Sertraline HCl (Zoloft) 100 mg DAILY PO Last administered on 01/12/17 08:54; Start 12/29/16 at 09:00 Albuterol Sulfate (Ventolin Hfa) 2 puff PRN Q4HRS PRN IH SHORTNESS OF BREATH; Start 12/28/16 at 21:15; Status UNV Amlodipine Besylate (Norvasc) 2.5 mg DAILY PO Last administered on 01/02/17 07: 59; Start 12/29/16 at 09:00; Stop 01/02/17 at 13:01; Status DC Carvedilol (Coreg) 12.5 mg BIDWMEALS PO Last administered on 01/12/17 17:10; Start 12/29/16 at 08:00 Lisinopril (Prinivil) 20 mg BID PO Last administered on 01/12/17 19:26; Start 12/29/16 at 09:00 Nitroglycerin (Nitrostat) 0.4 mg PRN Q5MIN PRN SL CHEST PAIN; Start 12/28/16 at 21:15 Potassium Chloride (Micro-K) 10 meq DAILY PO Last administered on 01/12/17 08: 54; Start 12/29/16 at 09:00 Torsemide (Demadex) 20 mg DAILY PO Last administered on 01/12/17 08:57; Start 12/29/16 at 09:00 Famotidine (Pepcid) 20 mg BIDBFRMEAL PO Last administered on 01/12/17 17:09; Start 12/28/16 at 22:00 Albuterol Sulfate (Ventolin) 2.5 mg PRN Q4HRS PRN NEB SHORTNESS OF BREATH; Start 12/28/16 at 21:30 Quetiapine Fumarate (SEROquel) 12.5 mg BID PO Last administered on 01/05/17 08: 03; Start 12/29/16 at 21:00; Stop 01/05/17 at 18:34; Status DC Prenat Multivit/ [place]/Iron/Folic Ac (Multivitamin ) 1 tab DAILYBFRSUP PO Last administered on 01/12/17 08:58; Start 12/30/16 at 17:00 Vitamin D (Vitamin D3) 50,000 unit WEEKLY PO ; Start 12/30/16 at 12:00; Stop 12/30 at 12:10; Status DC Cyanocobalamin (Vitamin B-12) 1,000 mcg [id number] IM Last administered on 13:32; Start 12/30/16 at 12:30 Vitamin D (Vitamin D3) 50,000 unit WEEKLY PO Last administered on 01/06/17 07: 52; Start 12/30/16 at 12:30 Levothyroxine Sodium (Synthroid) 25 mcg DAILY07 PO Last administered on 04:35; Start 12/31/16 at 07:00 Atorvastatin Calcium (Lipitor) 20 mg QHS PO Last administered on 01/12/17 19: 25; Start 12/30/16 at 21:00 Mirtazapine (Remeron) 7.5 mg QHS PO Last administered on 01/12/17 19:25; Start 01/01/17 at 21:00 Amlodipine Besylate (Norvasc) 5 mg DAILY PO Last administered on 01/12/17 08: 54; Start 01/03/17 at 09:00 Quetiapine Fumarate (SEROquel) 12.5 mg TID PO Last administered on 01/07/17 14 :28; Start 01/05/17 at 21:00; Stop 01/07/17 at 18:32; Status DC Quetiapine Fumarate (SEROquel) 12.5 mg QID PO Last administered on 01/08/17 10 :27; Start 01/07/17 at 21:00; Stop 01/08/17 at 10:42; Status DC Quetiapine Fumarate (SEROquel) 25 mg TID PO Last administered on 01/12/17 19: 25; Start 01/08/17 at 14:00 Divalproex Sodium (Depakote Sprinkles) 125 mg BID PO Last administered on 09:10; Start 01/08/17 at 21:00; Stop 01/11/17 at 18:08; Status DC Olanzapine (Zyprexa Zydis) 2.5 mg PRN Q2HR PRN PO PSYCHOSIS/AGITAION Last administered on 01/12/17 17:52; Start 01/10/17 at 23:00 Divalproex Sodium (Depakote Sprinkles) 125 mg TID PO Last administered on t 19:26; Start 01/11/17 at 21:00 Active Scripts Active Reported Abilify (Aripiprazole) 5 Mg Tablet 5 Mg PO QHS Zoloft (Sertraline Hcl) 100 Mg Tablet 100 Mg PO DAILY Lorazepam 1 Mg Tablet 1 Mg PO TID PRN PRN Nitrostat (Nitroglycerin) 0.4 Mg Tab.subl 0.4 Mg SL PRN Q5MIN PRN May Repeat x 3 doses, Notify PCP if Chest pain is unresolved Ventolin Hfa Inhaler (Albuterol Sulfate) 18 Gm Hfa.aer.ad 2 Puff IH PRN Q4HRS PRN Ranitidine Hcl 150 Mg Capsule 150 Mg PO BIDBFRMEAL Klor-Con Sprinkle (Potassium Chloride) 10 Meq Capsule.er 10 Meq PO DAILY Torsemide 20 Mg Tablet 20 Mg PO DAILY Norvasc (Amlodipine Besylate) 2.5 Mg Tablet 2.5 Mg PO DAILY Namenda (Memantine Hcl) 10 Mg Tablet 10 Mg PO BID Carvedilol 12.5 Mg Tablet 12.5 Mg PO BID Lisinopril 20 Mg Tablet 20 Mg PO BID Melatonin 3 Mg Tablet 3 Mg PO QHS Aricept (Donepezil Hcl) 10 Mg Tablet 10 Mg PO QHS WOO GALINDO MD January 12, 2017 20:58
[2017-01-12] MEDS: LORazepam 1 MG TABLET PO PRN (22:16)
--- NOTE | 2017-01-12 23:45 | PN ---
DATE: 01/10/2017 This late entry for 01/10/2017 covers elements not covered in my initial note. SUBJECTIVE: The patient remains confused, exit seeking, wandering, compliant with medications. Restless at times. REVIEW OF SYSTEMS: No CV, , eye, ENT, pulmonary system symptoms on review. Reliability poor. MENTAL STATUS EXAM: Oriented to himself. Insight, judgment, recent, remote memory, attention, concentration, fund of knowledge poor, consistent with his diagnosis mentioned in my initial note. PLAN: Continue psychotropics mentioned in my initial note. MAN Frederick GALINDO MD DR: JOCELYN/rhea JOB#: [id number] / [id number]
--- NOTE | 2017-01-12 23:49 | PN ---
DATE: 01/11/2017 This is a late, 01/11/2017, covers the elements not covered in my initial note. SUBJECTIVE: The patient has been confused, wandering, agitated, previous night believed he was at his sister's wanting to see her. REVIEW OF SYSTEMS: No CV, , pulmonary, eye, ENT system symptoms on review. Reliability poor. MENTAL STATUS EXAM: Oriented to himself. Insight, judgment, recent and remote memory, attention, concentration, fund of knowledge poor, consistent with his diagnosis as mentioned in my initial note. PLAN: Valproic acid level is 23 on 01/11/2017, on Depakote 125 b.i.d., we will increase it to 125 t.i.d. follow labs level. Adjust as clinically indicated. Continue the rest of psychotropics as mentioned in my initial note. MAN Frederick GALINDO MD DR: JOCELYN/rhea JOB#: [id number] / [id number]
[2017-01-13] MEDS: LEVOTHYROXINE 25 MCG TABLET. PO SCH (05:36)
[2017-01-13 05:46] VITALS: BP 180/88
[2017-01-13] MEDS: QUEtiapine 25 MG TABLET. PO SCH ×3 (07:53→20:04)
[2017-01-13] MEDS: FAMOTIDINE 20 MG TABLET PO SCH ×2 (07:53→18:15)
[2017-01-13] MEDS: POTASSIUM CHLORIDE 10 MEQ CAPSULE.ER. PO SCH (07:53)
[2017-01-13] MEDS: CARVEDILOL 12.5 MG TABLET PO SCH ×2 (07:54→18:15)
[2017-01-13] MEDS: LISINOPRIL 20 MG TABLET PO SCH ×2 (07:54→20:05)
[2017-01-13] MEDS: MEMANTINE 10 MG TABLET. PO SCH ×2 (07:54→20:04)
[2017-01-13] MEDS: DIVALPROEX 125 MG CAP.SPRINK PO SCH ×3 (07:54→20:05)
[2017-01-13] MEDS: SERTRALINE 100 MG TABLET. PO SCH (07:54)
[2017-01-13] MEDS: TORSEMIDE 20 MG TABLET. PO SCH (07:55)
[2017-01-13] MEDS: amLODIPine BESYLATE 5 MG TABLET PO SCH (07:55)
[2017-01-13] MEDS: CHOLECALCIFEROL (VITAMIN D3) 50,000 UNIT CAPSULE PO SCH (07:56)
[2017-01-13 15:51] VITALS: BP 137/78
[2017-01-13] MEDS: PRENATAL MULTIVITAMIN TABLET. PO SCH (18:15)
[2017-01-13] MEDS: MIRTAZAPINE 15 MG TABLET PO SCH (20:04)
[2017-01-13] MEDS: MELATONIN 3 MG TABLET PO SCH (20:04)
[2017-01-13] MEDS: DONEPEZIL HCL 10 MG TABLET PO SCH (20:04)
[2017-01-13] MEDS: busPIRone 5 MG TABLET. PO SCH (20:04)
[2017-01-13] MEDS: ATORVASTATIN CALCIUM 20 MG TABLET PO SCH (20:05)
--- NOTE | 2017-01-13 21:00 | PDOC ---
Exam Guru Demential Exam: Guru Note: Please also refer to the separate dictated note~for this date of service dictated separately.~Patient seen individually. Discussed the patient with Nursing staff reviewed the chart.~Reviewed interim history and current functioning. Reviewed vital signs,~Labs/ Radiology~and current medications noted below. Continue current treatment with the changes noted in the dictated addendum note Assessment: Vital Signs: Vital Signs Date Time Temp Pulse Resp B/P (MAP) Pulse Ox O2 Delivery O2 Flow Rate FiO2 01/13/17 20:05 61 137/78 01/13/17 15:51 97.6 20 98 01/12/17 16:05 Room Air I&O Intake and Output 01/13/17 07:00 Intake Total 840 ml Balance 840 ml Intake Oral 840 ml Current Medications: Meds: Current Medications Acetaminophen (Tylenol) 650 mg PRN Q6HRS PRN PO MILD PAIN / TEMP Last administered on 01/04/17 10:52; Start 12/28/16 at 21:15 Multi-Ingredient Ointment (Analgesic [place]) 1 baldo PRN QID PRN TP MUSCLE PAIN; Start 12/28/16 at 21:15 Al Hydroxide/Mg Hydroxide (Mylanta Plus Xs) 15 ml PRN AFTMEALHC PRN PO DYSPEPSIA; Start 12/28/16 at 21:15 Magnesium Hydroxide (Milk Of Magnesia) 2,400 mg PRN QHS PRN PO CONSTIPATION; Start 12/28/16 at 21:15 Aripiprazole (Abilify) 5 mg QHS PO Last administered on 12/28/16 22:15; Start 12/28/16 at 22:00; Stop 12/29/16 at 19:06; Status DC Donepezil HCl (Aricept) 10 mg QHS PO Last administered on 01/13/17 20:04; Start 12/28/16 at 22:00 Lorazepam (Ativan) 1 mg TID PRN PRN PO ANXIETY / AGITATION Last administered on 01/12/17 22:16; Start 12/28/16 at 21:15 Melatonin 3 mg QHS PO Last administered on 01/13/17 20:04; Start 12/28/16 at 22:00 Memantine (Namenda) 10 mg BID PO Last administered on 01/13/17 20:04; Start at 22:00 Sertraline HCl (Zoloft) 100 mg DAILY PO Last administered on 01/13/17 07:54; Start 12/29/16 at 09:00 Albuterol Sulfate (Ventolin Hfa) 2 puff PRN Q4HRS PRN IH SHORTNESS OF BREATH; Start 12/28/16 at 21:15; Status UNV Amlodipine Besylate (Norvasc) 2.5 mg DAILY PO Last administered on 01/02/17 07: 59; Start 12/29/16 at 09:00; Stop 01/02/17 at 13:01; Status DC Carvedilol (Coreg) 12.5 mg BIDWMEALS PO Last administered on 01/13/17 18:15; Start 12/29/16 at 08:00 Lisinopril (Prinivil) 20 mg BID PO Last administered on 01/13/17 20:05; Start 12/29/16 at 09:00 Nitroglycerin (Nitrostat) 0.4 mg PRN Q5MIN PRN SL CHEST PAIN; Start 12/28/16 at 21:15 Potassium Chloride (Micro-K) 10 meq DAILY PO Last administered on 01/13/17 07: 53; Start 12/29/16 at 09:00 Torsemide (Demadex) 20 mg DAILY PO Last administered on 01/13/17 07:55; Start 12/29/16 at 09:00 Famotidine (Pepcid) 20 mg BIDBFRMEAL PO Last administered on 01/13/17 18:15; Start 12/28/16 at 22:00 Albuterol Sulfate (Ventolin) 2.5 mg PRN Q4HRS PRN NEB SHORTNESS OF BREATH; Start 12/28/16 at 21:30 Quetiapine Fumarate (SEROquel) 12.5 mg BID PO Last administered on 01/05/17 08: 03; Start 12/29/16 at 21:00; Stop 01/05/17 at 18:34; Status DC Prenat Multivit/ [place]/Iron/Folic Ac (Multivitamin ) 1 tab DAILYBFRSUP PO Last administered on 01/13/17 18:15; Start 12/30/16 at 17:00 Vitamin D (Vitamin D3) 50,000 unit WEEKLY PO ; Start 12/30/16 at 12:00; Stop 12/30 at 12:10; Status DC Cyanocobalamin (Vitamin B-12) 1,000 mcg [id number] IM Last administered on 13:32; Start 12/30/16 at 12:30 Vitamin D (Vitamin D3) 50,000 unit WEEKLY PO Last administered on 01/13/17 07: 56; Start 12/30/16 at 12:30 Levothyroxine Sodium (Synthroid) 25 mcg DAILY07 PO Last administered on 05:36; Start 12/31/16 at 07:00 Atorvastatin Calcium (Lipitor) 20 mg QHS PO Last administered on 01/13/17 20: 05; Start 12/30/16 at 21:00 Mirtazapine (Remeron) 7.5 mg QHS PO Last administered on 01/12/17 19:25; Start 01/01/17 at 21:00; Stop 01/13/17 at 18:06; Status DC Amlodipine Besylate (Norvasc) 5 mg DAILY PO Last administered on 01/13/17 07: 55; Start 01/03/17 at 09:00 Quetiapine Fumarate (SEROquel) 12.5 mg TID PO Last administered on 01/07/17 14 :28; Start 01/05/17 at 21:00; Stop 01/07/17 at 18:32; Status DC Quetiapine Fumarate (SEROquel) 12.5 mg QID PO Last administered on 01/08/17 10 :27; Start 01/07/17 at 21:00; Stop 01/08/17 at 10:42; Status DC Quetiapine Fumarate (SEROquel) 25 mg TID PO Last administered on 01/13/17 20: 04; Start 01/08/17 at 14:00 Divalproex Sodium (Depakote Sprinkles) 125 mg BID PO Last administered on 09:10; Start 01/08/17 at 21:00; Stop 01/11/17 at 18:08; Status DC Olanzapine (Zyprexa Zydis) 2.5 mg PRN Q2HR PRN PO PSYCHOSIS/AGITAION Last administered on 01/12/17 17:52; Start 01/10/17 at 23:00 Divalproex Sodium (Depakote Sprinkles) 125 mg TID PO Last administered on 20:05; Start 01/11/17 at 21:00 Mirtazapine (Remeron) 15 mg QHS PO Last administered on 01/13/17 20:04; Start 01/13/17 at 21:00 Buspirone HCl (Buspar) 5 mg BID PO Last administered on 01/13/17 20:04; Start 01/13/17 at 21:00 Active Scripts Active Reported Abilify (Aripiprazole) 5 Mg Tablet 5 Mg PO QHS Zoloft (Sertraline Hcl) 100 Mg Tablet 100 Mg PO DAILY Lorazepam 1 Mg Tablet 1 Mg PO TID PRN PRN Nitrostat (Nitroglycerin) 0.4 Mg Tab.subl 0.4 Mg SL PRN Q5MIN PRN May Repeat x 3 doses, Notify PCP if Chest pain is unresolved Ventolin Hfa Inhaler (Albuterol Sulfate) 18 Gm Hfa.aer.ad 2 Puff IH PRN Q4HRS PRN Ranitidine Hcl 150 Mg Capsule 150 Mg PO BIDBFRMEAL Klor-Con Sprinkle (Potassium Chloride) 10 Meq Capsule.er 10 Meq PO DAILY Torsemide 20 Mg Tablet 20 Mg PO DAILY Norvasc (Amlodipine Besylate) 2.5 Mg Tablet 2.5 Mg PO DAILY Namenda (Memantine Hcl) 10 Mg Tablet 10 Mg PO BID Carvedilol 12.5 Mg Tablet 12.5 Mg PO BID Lisinopril 20 Mg Tablet 20 Mg PO BID Melatonin 3 Mg Tablet 3 Mg PO QHS Aricept (Donepezil Hcl) 10 Mg Tablet 10 Mg PO QHS WOO GALINDO MD January 13, 2017 21:00
--- NOTE | 2017-01-14 00:30 | PN ---
DATE: 01/12/2017 PSYCHIATRIC PROGRESS NOTE This is late entry of 01/12/2017, covers elements not covered in my initial note. SUBJECTIVE: The patient remains confused, wanders the hallways, took his medications, compliant with it. We will change it to dinnertime to help with compliance, at times gets irritable in the evening, receives Zyprexa p.r.n. REVIEW OF SYSTEMS: No CV, , pulmonary, eye, ENT system symptoms on review. Reliability poor. MENTAL STATUS EXAMINATION: Oriented to himself. Insight, judgment, recent and remote memory, attention, concentration, fund of knowledge poor, consistent with his diagnosis mentioned in my initial note. PLAN: Continue current psychotropics mentioned in my initial note, adjust as clinically indicated. MAN Frederick GALINDO MD DR: JOCELYN/rhea JOB#: [id number] / [id number]
[2017-01-14] MEDS: LEVOTHYROXINE 25 MCG TABLET. PO SCH (05:46)
[2017-01-14 06:02] VITALS: BP 107/69
[2017-01-14] MEDS: CARVEDILOL 12.5 MG TABLET PO SCH ×2 (08:00→17:14)
[2017-01-14] MEDS: LISINOPRIL 20 MG TABLET PO SCH ×2 (08:49→19:35)
[2017-01-14] MEDS: busPIRone 5 MG TABLET. PO SCH ×2 (08:49→19:36)
[2017-01-14] MEDS: FAMOTIDINE 20 MG TABLET PO SCH ×2 (08:49→17:14)
[2017-01-14] MEDS: POTASSIUM CHLORIDE 10 MEQ CAPSULE.ER. PO SCH (08:49)
[2017-01-14] MEDS: amLODIPine BESYLATE 5 MG TABLET PO SCH (08:49)
[2017-01-14] MEDS: MEMANTINE 10 MG TABLET. PO SCH ×2 (08:49→19:36)
[2017-01-14] MEDS: SERTRALINE 100 MG TABLET. PO SCH (08:49)
[2017-01-14] MEDS: DIVALPROEX 125 MG CAP.SPRINK PO SCH ×3 (08:49→19:36)
[2017-01-14] MEDS: QUEtiapine 25 MG TABLET. PO SCH ×3 (08:50→19:35)
[2017-01-14] MEDS: TORSEMIDE 20 MG TABLET. PO SCH (08:50)
[2017-01-14 16:06] VITALS: BP 163/81
[2017-01-14] MEDS: PRENATAL MULTIVITAMIN TABLET. PO SCH (17:14)
--- NOTE | 2017-01-14 18:29 | PN ---
DATE: 01/13/2017 PSYCHIATRIC PROGRESS NOTE This is late entry of 01/13/2017, covers elements not covered in my initial note. SUBJECTIVE: Per nursing report, the patient has been resistive to medications the previous night and during the day on 01/13/2017, slept 4-3/4 hours, argumentative with staff the previous night and with another demented patient, anxious, labile. REVIEW OF SYSTEMS: No CV, , eye, ENT or pulmonary system symptoms on review. Reliability poor. MENTAL STATUS EXAMINATION: Oriented to himself. Insight, judgment, recent and remote memory, attention, concentration, fund of knowledge poor, consistent with his diagnosis mentioned in my initial note. PLAN: Continue current psychotropics, increase Remeron from 7.5 to 15 mg at bedtime, Depakote may need to be increased after labs on 01/14/2017, start BuSpar 5 mg twice a day, continue Namenda 10 b.i.d., melatonin 3 mg at bedtime, Aricept 10 mg a day, Zoloft 100 mg a day, Seroquel 25 t.i.d., Ativan p.r.n., Zyprexa p.r.n., adjust further as clinically indicated. MAN Frederick GALINDO MD DR: JOCELYN/rhea JOB#: [id number] / [id number]
[2017-01-14] MEDS: DONEPEZIL HCL 10 MG TABLET PO SCH (19:36)
[2017-01-14] MEDS: MELATONIN 3 MG TABLET PO SCH (19:36)
[2017-01-14] MEDS: ATORVASTATIN CALCIUM 20 MG TABLET PO SCH (19:36)
[2017-01-14] MEDS: MIRTAZAPINE 15 MG TABLET PO SCH (19:37)
--- NOTE | 2017-01-14 20:32 | PDOC ---
Exam Guru Demential Exam: Guru Note: Please also refer to the separate dictated note~for this date of service dictated separately.~Patient seen individually. Discussed the patient with Nursing staff reviewed the chart.~Reviewed interim history and current functioning. Reviewed vital signs,~Labs/ Radiology~and current medications noted below. Continue current treatment with the changes noted in the dictated addendum note Assessment: Vital Signs: Vital Signs Date Time Temp Pulse Resp B/P (MAP) Pulse Ox O2 Delivery O2 Flow Rate FiO2 01/14/17 19:35 69 163/81 01/14/17 16:06 97.4 20 97 01/12/17 16:05 Room Air I&O Intake and Output 01/14/17 07:00 Intake Total 1200 ml Balance 1200 ml Intake Oral 1200 ml Current Medications: Meds: Current Medications Acetaminophen (Tylenol) 650 mg PRN Q6HRS PRN PO MILD PAIN / TEMP Last administered on 01/04/17 10:52; Start 12/28/16 at 21:15 Multi-Ingredient Ointment (Analgesic [place]) 1 baldo PRN QID PRN TP MUSCLE PAIN; Start 12/28/16 at 21:15 Al Hydroxide/Mg Hydroxide (Mylanta Plus Xs) 15 ml PRN AFTMEALHC PRN PO DYSPEPSIA; Start 12/28/16 at 21:15 Magnesium Hydroxide (Milk Of Magnesia) 2,400 mg PRN QHS PRN PO CONSTIPATION; Start 12/28/16 at 21:15 Aripiprazole (Abilify) 5 mg QHS PO Last administered on 12/28/16 22:15; Start 12/28/16 at 22:00; Stop 12/29/16 at 19:06; Status DC Donepezil HCl (Aricept) 10 mg QHS PO Last administered on 01/14/17 19:36; Start 12/28/16 at 22:00 Lorazepam (Ativan) 1 mg TID PRN PRN PO ANXIETY / AGITATION Last administered on 01/12/17 22:16; Start 12/28/16 at 21:15 Melatonin 3 mg QHS PO Last administered on 01/14/17 19:36; Start 12/28/16 at 22:00 Memantine (Namenda) 10 mg BID PO Last administered on 01/14/17 19:36; Start at 22:00 Sertraline HCl (Zoloft) 100 mg DAILY PO Last administered on 01/14/17 08:49; Start 12/29/16 at 09:00 Albuterol Sulfate (Ventolin Hfa) 2 puff PRN Q4HRS PRN IH SHORTNESS OF BREATH; Start 12/28/16 at 21:15; Status UNV Amlodipine Besylate (Norvasc) 2.5 mg DAILY PO Last administered on 01/02/17 07: 59; Start 12/29/16 at 09:00; Stop 01/02/17 at 13:01; Status DC Carvedilol (Coreg) 12.5 mg BIDWMEALS PO Last administered on 01/14/17 17:14; Start 12/29/16 at 08:00 Lisinopril (Prinivil) 20 mg BID PO Last administered on 01/14/17 19:35; Start 12/29/16 at 09:00 Nitroglycerin (Nitrostat) 0.4 mg PRN Q5MIN PRN SL CHEST PAIN; Start 12/28/16 at 21:15 Potassium Chloride (Micro-K) 10 meq DAILY PO Last administered on 01/14/17 08: 49; Start 12/29/16 at 09:00 Torsemide (Demadex) 20 mg DAILY PO Last administered on 01/14/17 08:50; Start 12/29/16 at 09:00 Famotidine (Pepcid) 20 mg BIDBFRMEAL PO Last administered on 01/14/17 17:14; Start 12/28/16 at 22:00 Albuterol Sulfate (Ventolin) 2.5 mg PRN Q4HRS PRN NEB SHORTNESS OF BREATH; Start 12/28/16 at 21:30 Quetiapine Fumarate (SEROquel) 12.5 mg BID PO Last administered on 01/05/17 08: 03; Start 12/29/16 at 21:00; Stop 01/05/17 at 18:34; Status DC Prenat Multivit/ [employer]/Iron/Folic Ac (Multivitamin ) 1 tab DAILYBFRSUP PO Last administered on 01/14/17 17:14; Start 12/30/16 at 17:00 Vitamin D (Vitamin D3) 50,000 unit WEEKLY PO ; Start 12/30/16 at 12:00; Stop 12/30 at 12:10; Status DC Cyanocobalamin (Vitamin B-12) 1,000 mcg [id number] IM Last administered on 13:32; Start 12/30/16 at 12:30 Vitamin D (Vitamin D3) 50,000 unit WEEKLY PO Last administered on 01/13/17 07: 56; Start 12/30/16 at 12:30 Levothyroxine Sodium (Synthroid) 25 mcg DAILY07 PO Last administered on 05:46; Start 12/31/16 at 07:00 Atorvastatin Calcium (Lipitor) 20 mg QHS PO Last administered on 01/14/17 19: 36; Start 12/30/16 at 21:00 Mirtazapine (Remeron) 7.5 mg QHS PO Last administered on 01/12/17 19:25; Start 01/01/17 at 21:00; Stop 01/13/17 at 18:06; Status DC Amlodipine Besylate (Norvasc) 5 mg DAILY PO Last administered on 01/13/17 07: 55; Start 01/03/17 at 09:00 Quetiapine Fumarate (SEROquel) 12.5 mg TID PO Last administered on 01/07/17 14 :28; Start 01/05/17 at 21:00; Stop 01/07/17 at 18:32; Status DC Quetiapine Fumarate (SEROquel) 12.5 mg QID PO Last administered on 01/08/17 10 :27; Start 01/07/17 at 21:00; Stop 01/08/17 at 10:42; Status DC Quetiapine Fumarate (SEROquel) 25 mg TID PO Last administered on 01/14/17 19: 35; Start 01/08/17 at 14:00 Divalproex Sodium (Depakote Sprinkles) 125 mg BID PO Last administered on 09:10; Start 01/08/17 at 21:00; Stop 01/11/17 at 18:08; Status DC Olanzapine (Zyprexa Zydis) 2.5 mg PRN Q2HR PRN PO PSYCHOSIS/AGITAION Last administered on 01/12/17 17:52; Start 01/10/17 at 23:00 Divalproex Sodium (Depakote Sprinkles) 125 mg TID PO Last administered on 19:36; Start 01/11/17 at 21:00 Mirtazapine (Remeron) 15 mg QHS PO Last administered on 01/14/17 19:37; Start 01/13/17 at 21:00 Buspirone HCl (Buspar) 5 mg BID PO Last administered on 01/14/17 19:36; Start 01/13/17 at 21:00 Active Scripts Active Reported Abilify (Aripiprazole) 5 Mg Tablet 5 Mg PO QHS Zoloft (Sertraline Hcl) 100 Mg Tablet 100 Mg PO DAILY Lorazepam 1 Mg Tablet 1 Mg PO TID PRN PRN Nitrostat (Nitroglycerin) 0.4 Mg Tab.subl 0.4 Mg SL PRN Q5MIN PRN May Repeat x 3 doses, Notify PCP if Chest pain is unresolved Ventolin Hfa Inhaler (Albuterol Sulfate) 18 Gm Hfa.aer.ad 2 Puff IH PRN Q4HRS PRN Ranitidine Hcl 150 Mg Capsule 150 Mg PO BIDBFRMEAL Klor-Con Sprinkle (Potassium Chloride) 10 Meq Capsule.er 10 Meq PO DAILY Torsemide 20 Mg Tablet 20 Mg PO DAILY Norvasc (Amlodipine Besylate) 2.5 Mg Tablet 2.5 Mg PO DAILY Namenda (Memantine Hcl) 10 Mg Tablet 10 Mg PO BID Carvedilol 12.5 Mg Tablet 12.5 Mg PO BID Lisinopril 20 Mg Tablet 20 Mg PO BID Melatonin 3 Mg Tablet 3 Mg PO QHS Aricept (Donepezil Hcl) 10 Mg Tablet 10 Mg PO QHS WOO GALINDO MD January 14, 2017 20:32
[2017-01-15 05:44] VITALS: BP 147/86
[2017-01-15] MEDS: LEVOTHYROXINE 25 MCG TABLET. PO SCH (06:11)
[2017-01-15] MEDS: TORSEMIDE 20 MG TABLET. PO SCH (08:47)
[2017-01-15] MEDS: CARVEDILOL 12.5 MG TABLET PO SCH ×2 (08:47→16:39)
[2017-01-15] MEDS: POTASSIUM CHLORIDE 10 MEQ CAPSULE.ER. PO SCH (08:47)
[2017-01-15] MEDS: QUEtiapine 25 MG TABLET. PO SCH ×3 (08:48→19:45)
[2017-01-15] MEDS: busPIRone 5 MG TABLET. PO SCH ×3 (08:48→19:45)
[2017-01-15] MEDS: LISINOPRIL 20 MG TABLET PO SCH ×2 (08:48→19:44)
[2017-01-15] MEDS: DIVALPROEX 125 MG CAP.SPRINK PO SCH ×3 (08:48→19:44)
[2017-01-15] MEDS: amLODIPine BESYLATE 5 MG TABLET PO SCH (08:48)
[2017-01-15] MEDS: MEMANTINE 10 MG TABLET. PO SCH ×2 (08:48→19:44)
[2017-01-15] MEDS: FAMOTIDINE 20 MG TABLET PO SCH ×2 (08:48→16:38)
[2017-01-15] MEDS: SERTRALINE 100 MG TABLET. PO SCH (08:48)
[2017-01-15 09:35] LABS: BASO # 0.1 x10^3/uL (0.0-0.2); BASO % 1 % (0-3); EOS # 0.1 x10^3/uL (0.0-0.7); EOS % 1 % (0-3); HEMATOCRIT 36.7 % (39.0-53.0); LYMPH # 2.1 x10^3/uL (1.0-4.8); LYMPH % 25 % (24-48); MEAN CORPUSCULAR HEMOGLOBIN 30 pg (25-35); MEAN CORPUSCULAR HGB CONC 35 g/dL (31-37); MEAN CORPUSCULAR VOLUME 84 fL (79-100); MONO # 0.5 x10^3/uL (0.0-1.1); MONO % 6 % (0-9); NEUT # 5.7 x10^3uL (1.8-7.7); NEUT % 66 % (31-73); PLATELET COUNT 160 x10^3/uL (140-400); RED BLOOD COUNT 4.39 x10^6/uL (4.30-5.70); RED CELL DISTRIBUTION WIDTH 13.7 % (11.5-14.5); WHITE BLOOD COUNT 8.5 x10^3/uL (4.0-11.0)
[2017-01-15 09:43] LABS: ALBUMIN 3.7 g/dL (3.4-5.0); ALBUMIN/GLOBULIN RATIO 1.1 (1.0-1.7); ALK PHOS 82 U/L (46-116); ALT (SGPT) 25 U/L (16-63); ANION GAP 7 (6-14); AST (SGOT) 19 U/L (15-37); BLOOD UREA NITROGEN 22 mg/dL (8-26); BUN/CREATININE RATIO 18 (6-20); CALCIUM 9.3 mg/dL (8.5-10.1); CARBON DIOXIDE 31 mmol/L (21-32); CHLORIDE 106 mmol/L (98-107); CREATININE 1.2 mg/dL (0.7-1.3); GFR 58.4; GLUCOSE 108 mg/dL (70-99); POTASSIUM 3.6 mmol/L (3.5-5.1); SODIUM 144 mmol/L (136-145); TOTAL BILIRUBIN 0.7 mg/dL (0.2-1.0); TOTAL PROTEIN 7.2 g/dL (6.4-8.2)
[2017-01-15 09:46] LABS: VAL ACID 22 mcg/mL (50-100)
[2017-01-15 15:42] VITALS: BP 162/84
[2017-01-15] MEDS: PRENATAL MULTIVITAMIN TABLET. PO SCH (16:38)
[2017-01-15] MEDS: ATORVASTATIN CALCIUM 20 MG TABLET PO SCH (19:43)
[2017-01-15] MEDS: MIRTAZAPINE 15 MG TABLET PO SCH (19:43)
[2017-01-15] MEDS: DONEPEZIL HCL 10 MG TABLET PO SCH (19:44)
[2017-01-15] MEDS: MELATONIN 3 MG TABLET PO SCH (19:44)
--- NOTE | 2017-01-15 20:58 | PDOC ---
Exam Guru Demential Exam: Guru Note: Please also refer to the separate dictated note~for this date of service dictated separately.~Patient seen individually. Discussed the patient with Nursing staff reviewed the chart.~Reviewed interim history and current functioning. Reviewed vital signs,~Labs/ Radiology~and current medications noted below. Continue current treatment with the changes noted in the dictated addendum note Assessment: Vital Signs: Vital Signs Date Time Temp Pulse Resp B/P (MAP) Pulse Ox O2 Delivery O2 Flow Rate FiO2 01/15/17 19:44 67 162/84 01/15/17 15:42 97.8 18 98 01/12/17 16:05 Room Air I&O Intake and Output 01/15/17 07:00 Intake Total 1200 ml Balance 1200 ml Intake Oral 1200 ml Labs: Laboratory Tests Test 01/15/17 09:05 White Blood Count 8.5 x10^3/uL (4.0-11.0) Red Blood Count 4.39 x10^6/uL (4.30-5.70) Hemoglobin 13.0 g/dL (13.0-17.5) Hematocrit 36.7 % (39.0-53.0) L Mean Corpuscular Volume 84 fL (79-100) Mean Corpuscular Hemoglobin 30 pg (25-35) Mean Corpuscular Hemoglobin Concent 35 g/dL (31-37) Red Cell Distribution Width 13.7 % (11.5-14.5) Platelet Count 160 x10^3/uL (140-400) Neutrophils (%) (Auto) 66 % (31-73) Lymphocytes (%) (Auto) 25 % (24-48) Monocytes (%) (Auto) 6 % (0-9) Eosinophils (%) (Auto) 1 % (0-3) Basophils (%) (Auto) 1 % (0-3) Neutrophils # (Auto) 5.7 x10^3uL (1.8-7.7) Lymphocytes # (Auto) 2.1 x10^3/uL (1.0-4.8) Monocytes # (Auto) 0.5 x10^3/uL (0.0-1.1) Eosinophils # (Auto) 0.1 x10^3/uL (0.0-0.7) Basophils # (Auto) 0.1 x10^3/uL (0.0-0.2) Sodium Level 144 mmol/L (136-145) Potassium Level 3.6 mmol/L (3.5-5.1) Chloride Level 106 mmol/L (98-107) Carbon Dioxide Level 31 mmol/L (21-32) Anion Gap 7 (6-14) Blood Urea Nitrogen 22 mg/dL (8-26) Creatinine 1.2 mg/dL (0.7-1.3) Estimated GFR (Cockcroft-Gault) 58.4 BUN/Creatinine Ratio 18 (6-20) Glucose Level 108 mg/dL (70-99) H Calcium Level 9.3 mg/dL (8.5-10.1) Total Bilirubin 0.7 mg/dL (0.2-1.0) Aspartate Amino Transferase (AST) 19 U/L (15-37) Alanine Aminotransferase (ALT) 25 U/L (16-63) Alkaline Phosphatase 82 U/L (46-116) Total Protein 7.2 g/dL (6.4-8.2) Albumin 3.7 g/dL (3.4-5.0) Albumin/Globulin Ratio 1.1 (1.0-1.7) Valproic Acid Level 22 mcg/mL (50-100) L Valproic Acid Last Dose Date 01/14/2017 Valproic Acid Last Dose Time 2100 Current Medications: Meds: Current Medications Acetaminophen (Tylenol) 650 mg PRN Q6HRS PRN PO MILD PAIN / TEMP Last administered on 01/04/17 10:52; Start 12/28/16 at 21:15 Multi-Ingredient Ointment (Analgesic [place]) 1 baldo PRN QID PRN TP MUSCLE PAIN; Start 12/28/16 at 21:15 Al Hydroxide/Mg Hydroxide (Mylanta Plus Xs) 15 ml PRN AFTMEALHC PRN PO DYSPEPSIA; Start 12/28/16 at 21:15 Magnesium Hydroxide (Milk Of Magnesia) 2,400 mg PRN QHS PRN PO CONSTIPATION; Start 12/28/16 at 21:15 Aripiprazole (Abilify) 5 mg QHS PO Last administered on 12/28/16 22:15; Start 12/28/16 at 22:00; Stop 12/29/16 at 19:06; Status DC Donepezil HCl (Aricept) 10 mg QHS PO Last administered on 01/15/17 19:44; Start 12/28/16 at 22:00 Lorazepam (Ativan) 1 mg TID PRN PRN PO ANXIETY / AGITATION Last administered on 01/12/17 22:16; Start 12/28/16 at 21:15 Melatonin 3 mg QHS PO Last administered on 01/15/17 19:44; Start 12/28/16 at 22:00 Memantine (Namenda) 10 mg BID PO Last administered on 01/15/17 19:44; Start at 22:00 Sertraline HCl (Zoloft) 100 mg DAILY PO Last administered on 01/15/17 08:48; Start 12/29/16 at 09:00 Albuterol Sulfate (Ventolin Hfa) 2 puff PRN Q4HRS PRN IH SHORTNESS OF BREATH; Start 12/28/16 at 21:15; Status UNV Amlodipine Besylate (Norvasc) 2.5 mg DAILY PO Last administered on 01/02/17 07: 59; Start 12/29/16 at 09:00; Stop 01/02/17 at 13:01; Status DC Carvedilol (Coreg) 12.5 mg BIDWMEALS PO Last administered on 01/15/17 16:39; Start 12/29/16 at 08:00 Lisinopril (Prinivil) 20 mg BID PO Last administered on 01/15/17 19:44; Start 12/29/16 at 09:00 Nitroglycerin (Nitrostat) 0.4 mg PRN Q5MIN PRN SL CHEST PAIN; Start 12/28/16 at 21:15 Potassium Chloride (Micro-K) 10 meq DAILY PO Last administered on 01/15/17 08: 47; Start 12/29/16 at 09:00 Torsemide (Demadex) 20 mg DAILY PO Last administered on 01/15/17 08:47; Start 12/29/16 at 09:00 Famotidine (Pepcid) 20 mg BIDBFRMEAL PO Last administered on 01/15/17 16:38; Start 12/28/16 at 22:00 Albuterol Sulfate (Ventolin) 2.5 mg PRN Q4HRS PRN NEB SHORTNESS OF BREATH; Start 12/28/16 at 21:30 Quetiapine Fumarate (SEROquel) 12.5 mg BID PO Last administered on 01/05/17 08: 03; Start 12/29/16 at 21:00; Stop 01/05/17 at 18:34; Status DC Prenat Multivit/ [place]/Iron/Folic Ac (Multivitamin ) 1 tab DAILYBFRSUP PO Last administered on 01/15/17 16:38; Start 12/30/16 at 17:00 Vitamin D (Vitamin D3) 50,000 unit WEEKLY PO ; Start 12/30/16 at 12:00; Stop 12/30 at 12:10; Status DC Cyanocobalamin (Vitamin B-12) 1,000 mcg [id number] IM Last administered on 13:32; Start 12/30/16 at 12:30 Vitamin D (Vitamin D3) 50,000 unit WEEKLY PO Last administered on 01/13/17 07: 56; Start 12/30/16 at 12:30 Levothyroxine Sodium (Synthroid) 25 mcg DAILY07 PO Last administered on 06:11; Start 12/31/16 at 07:00 Atorvastatin Calcium (Lipitor) 20 mg QHS PO Last administered on 01/15/17 19: 43; Start 12/30/16 at 21:00 Mirtazapine (Remeron) 7.5 mg QHS PO Last administered on 01/12/17 19:25; Start 01/01/17 at 21:00; Stop 01/13/17 at 18:06; Status DC Amlodipine Besylate (Norvasc) 5 mg DAILY PO Last administered on 01/15/17 08: 48; Start 01/03/17 at 09:00 Quetiapine Fumarate (SEROquel) 12.5 mg TID PO Last administered on 01/07/17 14 :28; Start 01/05/17 at 21:00; Stop 01/07/17 at 18:32; Status DC Quetiapine Fumarate (SEROquel) 12.5 mg QID PO Last administered on 01/08/17 10 :27; Start 01/07/17 at 21:00; Stop 01/08/17 at 10:42; Status DC Quetiapine Fumarate (SEROquel) 25 mg TID PO Last administered on 01/15/17 19: 45; Start 01/08/17 at 14:00 Divalproex Sodium (Depakote Sprinkles) 125 mg BID PO Last administered on 09:10; Start 01/08/17 at 21:00; Stop 01/11/17 at 18:08; Status DC Olanzapine (Zyprexa Zydis) 2.5 mg PRN Q2HR PRN PO PSYCHOSIS/AGITAION Last administered on 01/15/17 20:25; Start 01/10/17 at 23:00 Divalproex Sodium (Depakote Sprinkles) 125 mg TID PO Last administered on 19:44; Start 01/11/17 at 21:00 Mirtazapine (Remeron) 15 mg QHS PO Last administered on 01/15/17 19:43; Start 01/13/17 at 21:00 Buspirone HCl (Buspar) 5 mg BID PO Last administered on 01/15/17 08:48; Start 01/13/17 at 21:00; Stop 01/15/17 at 10:18; Status DC Buspirone HCl (Buspar) 5 mg TID PO Last administered on 01/15/17 19:45; Start 01/15/17 at 14:00 Active Scripts Active Reported Abilify (Aripiprazole) 5 Mg Tablet 5 Mg PO QHS Zoloft (Sertraline Hcl) 100 Mg Tablet 100 Mg PO DAILY Lorazepam 1 Mg Tablet 1 Mg PO TID PRN PRN Nitrostat (Nitroglycerin) 0.4 Mg Tab.subl 0.4 Mg SL PRN Q5MIN PRN May Repeat x 3 doses, Notify PCP if Chest pain is unresolved Ventolin Hfa Inhaler (Albuterol Sulfate) 18 Gm Hfa.aer.ad 2 Puff IH PRN Q4HRS PRN Ranitidine Hcl 150 Mg Capsule 150 Mg PO BIDBFRMEAL Klor-Con Sprinkle (Potassium Chloride) 10 Meq Capsule.er 10 Meq PO DAILY Torsemide 20 Mg Tablet 20 Mg PO DAILY Norvasc (Amlodipine Besylate) 2.5 Mg Tablet 2.5 Mg PO DAILY Namenda (Memantine Hcl) 10 Mg Tablet 10 Mg PO BID Carvedilol 12.5 Mg Tablet 12.5 Mg PO BID Lisinopril 20 Mg Tablet 20 Mg PO BID Melatonin 3 Mg Tablet 3 Mg PO QHS Aricept (Donepezil Hcl) 10 Mg Tablet 10 Mg PO QHS WOO GALINDO MD January 15, 2017 20:58
[2017-01-16 05:37] VITALS: BP 142/79
[2017-01-16] MEDS: LEVOTHYROXINE 25 MCG TABLET. PO SCH (06:09)
[2017-01-16] MEDS: busPIRone 5 MG TABLET. PO SCH ×3 (07:56→20:16)
[2017-01-16] MEDS: SERTRALINE 100 MG TABLET. PO SCH (07:56)
[2017-01-16] MEDS: amLODIPine BESYLATE 5 MG TABLET PO SCH (07:56)
[2017-01-16] MEDS: MEMANTINE 10 MG TABLET. PO SCH ×2 (07:56→20:16)
[2017-01-16] MEDS: QUEtiapine 25 MG TABLET. PO SCH ×3 (07:56→20:16)
[2017-01-16] MEDS: POTASSIUM CHLORIDE 10 MEQ CAPSULE.ER. PO SCH (07:56)
[2017-01-16] MEDS: FAMOTIDINE 20 MG TABLET PO SCH ×2 (07:56→18:00)
[2017-01-16] MEDS: CARVEDILOL 12.5 MG TABLET PO SCH ×2 (07:57→18:00)
[2017-01-16] MEDS: LISINOPRIL 20 MG TABLET PO SCH ×3 (07:57→20:30)
[2017-01-16] MEDS: DIVALPROEX 125 MG CAP.SPRINK PO SCH ×3 (07:57→20:15)
[2017-01-16] MEDS: TORSEMIDE 20 MG TABLET. PO SCH (07:58)
[2017-01-16 16:15] VITALS: BP 147/75
[2017-01-16] MEDS: PRENATAL MULTIVITAMIN TABLET. PO SCH (18:00)
[2017-01-16] MEDS: ATORVASTATIN CALCIUM 20 MG TABLET PO SCH (20:15)
[2017-01-16] MEDS: MELATONIN 3 MG TABLET PO SCH (20:16)
[2017-01-16] MEDS: DONEPEZIL HCL 10 MG TABLET PO SCH (20:16)
[2017-01-16] MEDS: MIRTAZAPINE 15 MG TABLET PO SCH (20:16)
--- NOTE | 2017-01-16 21:01 | PDOC ---
Exam Guru Demential Exam: Guru Note: Please also refer to the separate dictated note~for this date of service dictated separately.~Patient seen individually. Discussed the patient with Nursing staff reviewed the chart.~Reviewed interim history and current functioning. Reviewed vital signs,~Labs/ Radiology~and current medications noted below. Continue current treatment with the changes noted in the dictated addendum note Assessment: Vital Signs: Vital Signs Date Time Temp Pulse Resp B/P (MAP) Pulse Ox O2 Delivery O2 Flow Rate FiO2 01/16/17 20:30 48 111/58 01/16/17 16:15 97.3 16 96 01/16/17 05:37 Room Air I&O Intake and Output 01/16/17 07:00 Intake Total 1440 ml Balance 1440 ml Intake Oral 1440 ml Current Medications: Meds: Current Medications Acetaminophen (Tylenol) 650 mg PRN Q6HRS PRN PO MILD PAIN / TEMP Last administered on 01/04/17 10:52; Start 12/28/16 at 21:15 Multi-Ingredient Ointment (Analgesic [place]) 1 baldo PRN QID PRN TP MUSCLE PAIN; Start 12/28/16 at 21:15 Al Hydroxide/Mg Hydroxide (Mylanta Plus Xs) 15 ml PRN AFTMEALHC PRN PO DYSPEPSIA; Start 12/28/16 at 21:15 Magnesium Hydroxide (Milk Of Magnesia) 2,400 mg PRN QHS PRN PO CONSTIPATION; Start 12/28/16 at 21:15 Aripiprazole (Abilify) 5 mg QHS PO Last administered on 12/28/16 22:15; Start 12/28/16 at 22:00; Stop 12/29/16 at 19:06; Status DC Donepezil HCl (Aricept) 10 mg QHS PO Last administered on 01/16/17 20:16; Start 12/28/16 at 22:00 Lorazepam (Ativan) 1 mg TID PRN PRN PO ANXIETY / AGITATION Last administered on 01/12/17 22:16; Start 12/28/16 at 21:15 Melatonin 3 mg QHS PO Last administered on 01/16/17 20:16; Start 12/28/16 at 22:00 Memantine (Namenda) 10 mg BID PO Last administered on 01/16/17 20:16; Start at 22:00 Sertraline HCl (Zoloft) 100 mg DAILY PO Last administered on 01/16/17 07:56; Start 12/29/16 at 09:00 Albuterol Sulfate (Ventolin Hfa) 2 puff PRN Q4HRS PRN IH SHORTNESS OF BREATH; Start 12/28/16 at 21:15; Status UNV Amlodipine Besylate (Norvasc) 2.5 mg DAILY PO Last administered on 01/02/17 07: 59; Start 12/29/16 at 09:00; Stop 01/02/17 at 13:01; Status DC Carvedilol (Coreg) 12.5 mg BIDWMEALS PO Last administered on 01/16/17 18:00; Start 12/29/16 at 08:00 Lisinopril (Prinivil) 20 mg BID PO Last administered on 01/16/17 20:15; Start 12/29/16 at 09:00 Nitroglycerin (Nitrostat) 0.4 mg PRN Q5MIN PRN SL CHEST PAIN; Start 12/28/16 at 21:15 Potassium Chloride (Micro-K) 10 meq DAILY PO Last administered on 01/16/17 07: 56; Start 12/29/16 at 09:00 Torsemide (Demadex) 20 mg DAILY PO Last administered on 01/16/17 07:58; Start 12/29/16 at 09:00 Famotidine (Pepcid) 20 mg BIDBFRMEAL PO Last administered on 01/16/17 18:00; Start 12/28/16 at 22:00 Albuterol Sulfate (Ventolin) 2.5 mg PRN Q4HRS PRN NEB SHORTNESS OF BREATH; Start 12/28/16 at 21:30 Quetiapine Fumarate (SEROquel) 12.5 mg BID PO Last administered on 01/05/17 08: 03; Start 12/29/16 at 21:00; Stop 01/05/17 at 18:34; Status DC Prenat Multivit/ [employer]/Iron/Folic Ac (Multivitamin ) 1 tab DAILYBFRSUP PO Last administered on 01/16/17 18:00; Start 12/30/16 at 17:00 Vitamin D (Vitamin D3) 50,000 unit WEEKLY PO ; Start 12/30/16 at 12:00; Stop 12/30 at 12:10; Status DC Cyanocobalamin (Vitamin B-12) 1,000 mcg [id number] IM Last administered on 13:32; Start 12/30/16 at 12:30 Vitamin D (Vitamin D3) 50,000 unit WEEKLY PO Last administered on 01/13/17 07: 56; Start 12/30/16 at 12:30 Levothyroxine Sodium (Synthroid) 25 mcg DAILY07 PO Last administered on 06:09; Start 12/31/16 at 07:00 Atorvastatin Calcium (Lipitor) 20 mg QHS PO Last administered on 01/16/17 20: 15; Start 12/30/16 at 21:00 Mirtazapine (Remeron) 7.5 mg QHS PO Last administered on 01/12/17 19:25; Start 01/01/17 at 21:00; Stop 01/13/17 at 18:06; Status DC Amlodipine Besylate (Norvasc) 5 mg DAILY PO Last administered on 01/16/17 07: 56; Start 01/03/17 at 09:00 Quetiapine Fumarate (SEROquel) 12.5 mg TID PO Last administered on 01/07/17 14 :28; Start 01/05/17 at 21:00; Stop 01/07/17 at 18:32; Status DC Quetiapine Fumarate (SEROquel) 12.5 mg QID PO Last administered on 01/08/17 10 :27; Start 01/07/17 at 21:00; Stop 01/08/17 at 10:42; Status DC Quetiapine Fumarate (SEROquel) 25 mg TID PO Last administered on 01/16/17 20: 16; Start 01/08/17 at 14:00 Divalproex Sodium (Depakote Sprinkles) 125 mg BID PO Last administered on 09:10; Start 01/08/17 at 21:00; Stop 01/11/17 at 18:08; Status DC Olanzapine (Zyprexa Zydis) 2.5 mg PRN Q2HR PRN PO PSYCHOSIS/AGITAION Last administered on 01/16/17 12:23; Start 01/10/17 at 23:00 Divalproex Sodium (Depakote Sprinkles) 125 mg TID PO Last administered on 12:23; Start 01/11/17 at 21:00; Stop 01/16/17 at 18:52; Status DC Mirtazapine (Remeron) 15 mg QHS PO Last administered on 01/16/17 20:16; Start 01/13/17 at 21:00 Buspirone HCl (Buspar) 5 mg BID PO Last administered on 01/15/17 08:48; Start 01/13/17 at 21:00; Stop 01/15/17 at 10:18; Status DC Buspirone HCl (Buspar) 5 mg TID PO Last administered on 01/16/17 20:16; Start 01/15/17 at 14:00 Divalproex Sodium (Depakote Sprinkles) 250 mg BID PO Last administered on 20:15; Start 01/16/17 at 21:00 Divalproex Sodium (Depakote Sprinkles) 125 mg DAILY@1400 PO ; Start 01/17/17 at 14:00 Active Scripts Active Reported Abilify (Aripiprazole) 5 Mg Tablet 5 Mg PO QHS Zoloft (Sertraline Hcl) 100 Mg Tablet 100 Mg PO DAILY Lorazepam 1 Mg Tablet 1 Mg PO TID PRN PRN Nitrostat (Nitroglycerin) 0.4 Mg Tab.subl 0.4 Mg SL PRN Q5MIN PRN May Repeat x 3 doses, Notify PCP if Chest pain is unresolved Ventolin Hfa Inhaler (Albuterol Sulfate) 18 Gm Hfa.aer.ad 2 Puff IH PRN Q4HRS PRN Ranitidine Hcl 150 Mg Capsule 150 Mg PO BIDBFRMEAL Klor-Con Sprinkle (Potassium Chloride) 10 Meq Capsule.er 10 Meq PO DAILY Torsemide 20 Mg Tablet 20 Mg PO DAILY Norvasc (Amlodipine Besylate) 2.5 Mg Tablet 2.5 Mg PO DAILY Namenda (Memantine Hcl) 10 Mg Tablet 10 Mg PO BID Carvedilol 12.5 Mg Tablet 12.5 Mg PO BID Lisinopril 20 Mg Tablet 20 Mg PO BID Melatonin 3 Mg Tablet 3 Mg PO QHS Aricept (Donepezil Hcl) 10 Mg Tablet 10 Mg PO QHS WOO GALINDO MD January 16, 2017 21:01
--- NOTE | 2017-01-16 23:55 | PN ---
DATE: 01/14/2017 This late entry for 01/14/2017 covers elements not covered in my initial note. SUBJECTIVE: The patient is compliant with his medications, confused, believes he is at work when he woke up middle of the night, would not go back to bed till 8. No PRNs were given. REVIEW OF SYSTEMS: No CV, , pulmonary, eye, ENT system symptoms on review. Reliability poor. MENTAL STATUS EXAM: Oriented to himself. Insight, judgment, recent and remote memory, attention, concentration, fund of knowledge poor, consistent with his diagnosis mentioned in my initial note. PLAN: Continue psychotropics mentioned in my initial note. Adjust further as clinically indicated. MAN Frederick GALINDO MD DR: JCOELYN/rhea JOB#: [id number] / [id number]
--- NOTE | 2017-01-16 23:58 | PN ---
DATE: 01/15/2017 PSYCHIATRIC PROGRESS NOTE This is a late entry 01/15/2017 covers the elements not covered in my initial note. SUBJECTIVE: The patient was staffed at a treatment team meeting morning of 01/15/2017 seen individually evening of 01/15/2017. Appetite 100%, sleeping about 6 hours. No CV, , pulmonary, eye, ENT system symptoms on review. Reliability poor, takes his medications whole per nursing staff. REVIEW OF SYSTEMS: No CV, , pulmonary, eye, ENT system symptoms on review. Reliability poor. MENTAL STATUS EXAM: Oriented to himself. Insight, judgment, recent and remote memory, attention, concentration, fund of knowledge poor, consistent with his diagnosis. He again woke up middle of the night 3:00 a.m., agitated, posturing looking for his , received Zyprexa Zydis. IMPRESSION: Unchanged from initial note. PLAN: Increase BuSpar from 5 b.i.d. to 5 t.i.d. Continue rest of the psychotropics mentioned in my initial note. Check valproic acid on 01/15/2017 is 26 despite being subtherapeutic clinically adequate for now. WOO GALINDO MD DR: JOCELYN/rhea JOB#: [id number] / [id number]
[2017-01-17 05:57] VITALS: BP 139/80
[2017-01-17] MEDS: LEVOTHYROXINE 25 MCG TABLET. PO SCH (06:06)
[2017-01-17] MEDS: FAMOTIDINE 20 MG TABLET PO SCH ×2 (07:57→17:21)
[2017-01-17] MEDS: MEMANTINE 10 MG TABLET. PO SCH ×2 (07:57→19:52)
[2017-01-17] MEDS: QUEtiapine 25 MG TABLET. PO SCH ×3 (07:57→19:52)
[2017-01-17] MEDS: LISINOPRIL 20 MG TABLET PO SCH (07:57)
[2017-01-17] MEDS: amLODIPine BESYLATE 5 MG TABLET PO SCH (07:58)
[2017-01-17] MEDS: POTASSIUM CHLORIDE 10 MEQ CAPSULE.ER. PO SCH (07:58)
[2017-01-17] MEDS: SERTRALINE 100 MG TABLET. PO SCH (07:58)
[2017-01-17] MEDS: CARVEDILOL 12.5 MG TABLET PO SCH ×2 (07:58→17:00)
[2017-01-17] MEDS: TORSEMIDE 20 MG TABLET. PO SCH (07:59)
[2017-01-17] MEDS: busPIRone 5 MG TABLET. PO SCH ×3 (07:59→19:52)
[2017-01-17] MEDS: DIVALPROEX 125 MG CAP.SPRINK PO SCH ×3 (07:59→19:52)
[2017-01-17 16:25] VITALS: BP 161/87
[2017-01-17] MEDS: PRENATAL MULTIVITAMIN TABLET. PO SCH (17:00)
[2017-01-17] MEDS: ATORVASTATIN CALCIUM 20 MG TABLET PO SCH (19:52)
[2017-01-17] MEDS: MIRTAZAPINE 15 MG TABLET PO SCH (19:52)
[2017-01-17] MEDS: MELATONIN 3 MG TABLET PO SCH (19:52)
[2017-01-17] MEDS: DONEPEZIL HCL 10 MG TABLET PO SCH (19:52)
--- NOTE | 2017-01-17 20:46 | PDOC ---
Exam Guru Demential Exam: Guru Note: Please also refer to the separate dictated note~for this date of service dictated separately.~Patient seen individually. Discussed the patient with Nursing staff reviewed the chart.~Reviewed interim history and current functioning. Reviewed vital signs,~Labs/ Radiology~and current medications noted below. Continue current treatment with the changes noted in the dictated addendum note Assessment: Vital Signs: Vital Signs Date Time Temp Pulse Resp B/P (MAP) Pulse Ox O2 Delivery O2 Flow Rate FiO2 01/17/17 16:25 97.5 54 18 161/87 (111) 95 01/16/17 05:37 Room Air I&O Intake and Output 01/17/17 07:00 Intake Total 1080 ml Balance 1080 ml Intake Oral 1080 ml # Bowel Movements 1 Current Medications: Meds: Current Medications Acetaminophen (Tylenol) 650 mg PRN Q6HRS PRN PO MILD PAIN / TEMP Last administered on 01/04/17 10:52; Start 12/28/16 at 21:15 Multi-Ingredient Ointment (Analgesic [place]) 1 baldo PRN QID PRN TP MUSCLE PAIN; Start 12/28/16 at 21:15 Al Hydroxide/Mg Hydroxide (Mylanta Plus Xs) 15 ml PRN AFTMEALHC PRN PO DYSPEPSIA; Start 12/28/16 at 21:15 Magnesium Hydroxide (Milk Of Magnesia) 2,400 mg PRN QHS PRN PO CONSTIPATION; Start 12/28/16 at 21:15 Aripiprazole (Abilify) 5 mg QHS PO Last administered on 12/28/16 22:15; Start 12/28/16 at 22:00; Stop 12/29/16 at 19:06; Status DC Donepezil HCl (Aricept) 10 mg QHS PO Last administered on 01/16/17 20:16; Start 12/28/16 at 22:00 Lorazepam (Ativan) 1 mg TID PRN PRN PO ANXIETY / AGITATION Last administered on 01/12/17 22:16; Start 12/28/16 at 21:15 Melatonin 3 mg QHS PO Last administered on 01/16/17 20:16; Start 12/28/16 at 22:00 Memantine (Namenda) 10 mg BID PO Last administered on 01/17/17 07:57; Start at 22:00 Sertraline HCl (Zoloft) 100 mg DAILY PO Last administered on 01/17/17 07:58; Start 12/29/16 at 09:00 Albuterol Sulfate (Ventolin Hfa) 2 puff PRN Q4HRS PRN IH SHORTNESS OF BREATH; Start 12/28/16 at 21:15; Status UNV Amlodipine Besylate (Norvasc) 2.5 mg DAILY PO Last administered on 01/02/17 07: 59; Start 12/29/16 at 09:00; Stop 01/02/17 at 13:01; Status DC Carvedilol (Coreg) 12.5 mg BIDWMEALS PO Last administered on 01/17/17 07:58; Start 12/29/16 at 08:00 Lisinopril (Prinivil) 20 mg BID PO Last administered on 01/17/17 07:57; Start 12/29/16 at 09:00 Nitroglycerin (Nitrostat) 0.4 mg PRN Q5MIN PRN SL CHEST PAIN; Start 12/28/16 at 21:15 Potassium Chloride (Micro-K) 10 meq DAILY PO Last administered on 01/17/17 07: 58; Start 12/29/16 at 09:00 Torsemide (Demadex) 20 mg DAILY PO Last administered on 01/17/17 07:59; Start 12/29/16 at 09:00 Famotidine (Pepcid) 20 mg BIDBFRMEAL PO Last administered on 01/17/17 07:57; Start 12/28/16 at 22:00 Albuterol Sulfate (Ventolin) 2.5 mg PRN Q4HRS PRN NEB SHORTNESS OF BREATH; Start 12/28/16 at 21:30 Quetiapine Fumarate (SEROquel) 12.5 mg BID PO Last administered on 01/05/17 08: 03; Start 12/29/16 at 21:00; Stop 01/05/17 at 18:34; Status DC Prenat Multivit/ [place]/Iron/Folic Ac (Multivitamin ) 1 tab DAILYBFRSUP PO Last administered on 01/16/17 18:00; Start 12/30/16 at 17:00 Vitamin D (Vitamin D3) 50,000 unit WEEKLY PO ; Start 12/30/16 at 12:00; Stop 12/30 at 12:10; Status DC Cyanocobalamin (Vitamin B-12) 1,000 mcg [id number] IM Last administered on 13:32; Start 12/30/16 at 12:30 Vitamin D (Vitamin D3) 50,000 unit WEEKLY PO Last administered on 01/13/17 07: 56; Start 12/30/16 at 12:30 Levothyroxine Sodium (Synthroid) 25 mcg DAILY07 PO Last administered on 06:06; Start 12/31/16 at 07:00 Atorvastatin Calcium (Lipitor) 20 mg QHS PO Last administered on 01/16/17 20: 15; Start 12/30/16 at 21:00 Mirtazapine (Remeron) 7.5 mg QHS PO Last administered on 01/12/17 19:25; Start 01/01/17 at 21:00; Stop 01/13/17 at 18:06; Status DC Amlodipine Besylate (Norvasc) 5 mg DAILY PO Last administered on 01/17/17 07: 58; Start 01/03/17 at 09:00 Quetiapine Fumarate (SEROquel) 12.5 mg TID PO Last administered on 01/07/17 14 :28; Start 01/05/17 at 21:00; Stop 01/07/17 at 18:32; Status DC Quetiapine Fumarate (SEROquel) 12.5 mg QID PO Last administered on 01/08/17 10 :27; Start 01/07/17 at 21:00; Stop 01/08/17 at 10:42; Status DC Quetiapine Fumarate (SEROquel) 25 mg TID PO Last administered on 01/17/17 13: 09; Start 01/08/17 at 14:00 Divalproex Sodium (Depakote Sprinkles) 125 mg BID PO Last administered on 09:10; Start 01/08/17 at 21:00; Stop 01/11/17 at 18:08; Status DC Olanzapine (Zyprexa Zydis) 2.5 mg PRN Q2HR PRN PO PSYCHOSIS/AGITAION Last administered on 01/17/17 13:08; Start 01/10/17 at 23:00 Divalproex Sodium (Depakote Sprinkles) 125 mg TID PO Last administered on 12:23; Start 01/11/17 at 21:00; Stop 01/16/17 at 18:52; Status DC Mirtazapine (Remeron) 15 mg QHS PO Last administered on 01/16/17 20:16; Start 01/13/17 at 21:00 Buspirone HCl (Buspar) 5 mg BID PO Last administered on 01/15/17 08:48; Start 01/13/17 at 21:00; Stop 01/15/17 at 10:18; Status DC Buspirone HCl (Buspar) 5 mg TID PO Last administered on 01/17/17 13:09; Start 01/15/17 at 14:00 Divalproex Sodium (Depakote Sprinkles) 250 mg BID PO Last administered on 07:59; Start 01/16/17 at 21:00 Divalproex Sodium (Depakote Sprinkles) 125 mg DAILY@1400 PO Last administered on 01/17/17 13:09; Start 01/17/17 at 14:00 Active Scripts Active Reported Abilify (Aripiprazole) 5 Mg Tablet 5 Mg PO QHS Zoloft (Sertraline Hcl) 100 Mg Tablet 100 Mg PO DAILY Lorazepam 1 Mg Tablet 1 Mg PO TID PRN PRN Nitrostat (Nitroglycerin) 0.4 Mg Tab.subl 0.4 Mg SL PRN Q5MIN PRN May Repeat x 3 doses, Notify PCP if Chest pain is unresolved Ventolin Hfa Inhaler (Albuterol Sulfate) 18 Gm Hfa.aer.ad 2 Puff IH PRN Q4HRS PRN Ranitidine Hcl 150 Mg Capsule 150 Mg PO BIDBFRMEAL Klor-Con Sprinkle (Potassium Chloride) 10 Meq Capsule.er 10 Meq PO DAILY Torsemide 20 Mg Tablet 20 Mg PO DAILY Norvasc (Amlodipine Besylate) 2.5 Mg Tablet 2.5 Mg PO DAILY Namenda (Memantine Hcl) 10 Mg Tablet 10 Mg PO BID Carvedilol 12.5 Mg Tablet 12.5 Mg PO BID Lisinopril 20 Mg Tablet 20 Mg PO BID Melatonin 3 Mg Tablet 3 Mg PO QHS Aricept (Donepezil Hcl) 10 Mg Tablet 10 Mg PO QHS Diagnosis: Problems: (1) Dementia with behavioral disturbance (2) Anxiety disorder (3) Dementia, vascular, with depression (4) Dementia, vascular, 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
[2017-01-18] MEDS: LEVOTHYROXINE 25 MCG TABLET. PO SCH (05:27)
[2017-01-18 06:31] VITALS: BP 144/78
[2017-01-18] MEDS: POTASSIUM CHLORIDE 10 MEQ CAPSULE.ER. PO SCH (08:01)
[2017-01-18] MEDS: TORSEMIDE 20 MG TABLET. PO SCH (08:01)
[2017-01-18] MEDS: MEMANTINE 10 MG TABLET. PO SCH ×2 (08:01→18:20)
[2017-01-18] MEDS: LISINOPRIL 20 MG TABLET PO SCH ×2 (08:01→18:21)
[2017-01-18] MEDS: CARVEDILOL 12.5 MG TABLET PO SCH ×2 (08:02→15:30)
[2017-01-18] MEDS: amLODIPine BESYLATE 5 MG TABLET PO SCH (08:02)
[2017-01-18] MEDS: DIVALPROEX 125 MG CAP.SPRINK PO SCH ×3 (08:02→18:19)
[2017-01-18] MEDS: busPIRone 5 MG TABLET. PO SCH ×3 (08:02→18:19)
[2017-01-18] MEDS: QUEtiapine 25 MG TABLET. PO SCH ×3 (08:02→18:20)
[2017-01-18] MEDS: FAMOTIDINE 20 MG TABLET PO SCH ×2 (08:02→15:30)
[2017-01-18] MEDS: SERTRALINE 100 MG TABLET. PO SCH (08:02)
[2017-01-18] MEDS: PRENATAL MULTIVITAMIN TABLET. PO SCH (15:30)
[2017-01-18 16:03] VITALS: BP 119/63
[2017-01-18] MEDS: DONEPEZIL HCL 10 MG TABLET PO SCH (18:19)
[2017-01-18] MEDS: MELATONIN 3 MG TABLET PO SCH (18:19)
[2017-01-18] MEDS: ATORVASTATIN CALCIUM 20 MG TABLET PO SCH (18:20)
[2017-01-18] MEDS: MIRTAZAPINE 15 MG TABLET PO SCH (18:21)
--- NOTE | 2017-01-18 19:39 | PDOC ---
Exam Guru Demential Exam: Guru Note: Please also refer to the separate dictated note~for this date of service dictated separately.~Patient seen individually. Discussed the patient with Nursing staff reviewed the chart.~Reviewed interim history and current functioning. Reviewed vital signs,~Labs/ Radiology~and current medications noted below. Continue current treatment with the changes noted in the dictated addendum note Assessment: Vital Signs: Vital Signs Date Time Temp Pulse Resp B/P (MAP) Pulse Ox O2 Delivery O2 Flow Rate FiO2 01/18/17 18:21 63 119/63 01/18/17 16:03 97.5 18 98 01/16/17 05:37 Room Air I&O Intake and Output 01/18/17 07:00 Intake Total 1080 ml Balance 1080 ml Intake Oral 1080 ml Current Medications: Meds: Current Medications Acetaminophen (Tylenol) 650 mg PRN Q6HRS PRN PO MILD PAIN / TEMP Last administered on 01/04/17 10:52; Start 12/28/16 at 21:15 Multi-Ingredient Ointment (Analgesic [place]) 1 baldo PRN QID PRN TP MUSCLE PAIN; Start 12/28/16 at 21:15 Al Hydroxide/Mg Hydroxide (Mylanta Plus Xs) 15 ml PRN AFTMEALHC PRN PO DYSPEPSIA; Start 12/28/16 at 21:15 Magnesium Hydroxide (Milk Of Magnesia) 2,400 mg PRN QHS PRN PO CONSTIPATION; Start 12/28/16 at 21:15 Aripiprazole (Abilify) 5 mg QHS PO Last administered on 12/28/16 22:15; Start 12/28/16 at 22:00; Stop 12/29/16 at 19:06; Status DC Donepezil HCl (Aricept) 10 mg QHS PO Last administered on 01/18/17 18:19; Start 12/28/16 at 22:00 Lorazepam (Ativan) 1 mg TID PRN PRN PO ANXIETY / AGITATION Last administered on 01/12/17 22:16; Start 12/28/16 at 21:15 Melatonin 3 mg QHS PO Last administered on 01/18/17 18:19; Start 12/28/16 at 22:00 Memantine (Namenda) 10 mg BID PO Last administered on 01/18/17 18:20; Start at 22:00 Sertraline HCl (Zoloft) 100 mg DAILY PO Last administered on 01/18/17 08:02; Start 12/29/16 at 09:00 Albuterol Sulfate (Ventolin Hfa) 2 puff PRN Q4HRS PRN IH SHORTNESS OF BREATH; Start 12/28/16 at 21:15; Status UNV Amlodipine Besylate (Norvasc) 2.5 mg DAILY PO Last administered on 01/02/17 07: 59; Start 12/29/16 at 09:00; Stop 01/02/17 at 13:01; Status DC Carvedilol (Coreg) 12.5 mg BIDWMEALS PO Last administered on 01/18/17 15:30; Start 12/29/16 at 08:00 Lisinopril (Prinivil) 20 mg BID PO Last administered on 01/18/17 18:21; Start 12/29/16 at 09:00 Nitroglycerin (Nitrostat) 0.4 mg PRN Q5MIN PRN SL CHEST PAIN; Start 12/28/16 at 21:15 Potassium Chloride (Micro-K) 10 meq DAILY PO Last administered on 01/18/17 08: 01; Start 12/29/16 at 09:00 Torsemide (Demadex) 20 mg DAILY PO Last administered on 01/18/17 08:01; Start 12/29/16 at 09:00 Famotidine (Pepcid) 20 mg BIDBFRMEAL PO Last administered on 01/18/17 15:30; Start 12/28/16 at 22:00 Albuterol Sulfate (Ventolin) 2.5 mg PRN Q4HRS PRN NEB SHORTNESS OF BREATH; Start 12/28/16 at 21:30 Quetiapine Fumarate (SEROquel) 12.5 mg BID PO Last administered on 01/05/17 08: 03; Start 12/29/16 at 21:00; Stop 01/05/17 at 18:34; Status DC Prenat Multivit/ Health Nurse/Iron/Folic Ac (Multivitamin ) 1 tab DAILYBFRSUP PO Last administered on 01/18/17 15:30; Start 12/30/16 at 17:00 Vitamin D (Vitamin D3) 50,000 unit WEEKLY PO ; Start 12/30/16 at 12:00; Stop 12/30 at 12:10; Status DC Cyanocobalamin (Vitamin B-12) 1,000 mcg [id number] IM Last administered on 13:32; Start 12/30/16 at 12:30 Vitamin D (Vitamin D3) 50,000 unit WEEKLY PO Last administered on 01/13/17 07: 56; Start 12/30/16 at 12:30 Levothyroxine Sodium (Synthroid) 25 mcg DAILY07 PO Last administered on 05:27; Start 12/31/16 at 07:00 Atorvastatin Calcium (Lipitor) 20 mg QHS PO Last administered on 01/18/17 18: 20; Start 12/30/16 at 21:00 Mirtazapine (Remeron) 7.5 mg QHS PO Last administered on 01/12/17 19:25; Start 01/01/17 at 21:00; Stop 01/13/17 at 18:06; Status DC Amlodipine Besylate (Norvasc) 5 mg DAILY PO Last administered on 01/18/17 08: 02; Start 01/03/17 at 09:00 Quetiapine Fumarate (SEROquel) 12.5 mg TID PO Last administered on 01/07/17 14 :28; Start 01/05/17 at 21:00; Stop 01/07/17 at 18:32; Status DC Quetiapine Fumarate (SEROquel) 12.5 mg QID PO Last administered on 01/08/17 10 :27; Start 01/07/17 at 21:00; Stop 01/08/17 at 10:42; Status DC Quetiapine Fumarate (SEROquel) 25 mg TID PO Last administered on 01/18/17 18: 20; Start 01/08/17 at 14:00 Divalproex Sodium (Depakote Sprinkles) 125 mg BID PO Last administered on 09:10; Start 01/08/17 at 21:00; Stop 01/11/17 at 18:08; Status DC Olanzapine (Zyprexa Zydis) 2.5 mg PRN Q2HR PRN PO PSYCHOSIS/AGITAION Last administered on 01/18/17 18:58; Start 01/10/17 at 23:00 Divalproex Sodium (Depakote Sprinkles) 125 mg TID PO Last administered on 12:23; Start 01/11/17 at 21:00; Stop 01/16/17 at 18:52; Status DC Mirtazapine (Remeron) 15 mg QHS PO Last administered on 01/18/17 18:21; Start 01/13/17 at 21:00 Buspirone HCl (Buspar) 5 mg BID PO Last administered on 01/15/17 08:48; Start 01/13/17 at 21:00; Stop 01/15/17 at 10:18; Status DC Buspirone HCl (Buspar) 5 mg TID PO Last administered on 01/18/17 18:19; Start 01/15/17 at 14:00 Divalproex Sodium (Depakote Sprinkles) 250 mg BID PO Last administered on 18:19; Start 01/16/17 at 21:00 Divalproex Sodium (Depakote Sprinkles) 125 mg DAILY@1400 PO Last administered on 01/18/17 11:56; Start 01/17/17 at 14:00 Active Scripts Active Reported Abilify (Aripiprazole) 5 Mg Tablet 5 Mg PO QHS Zoloft (Sertraline Hcl) 100 Mg Tablet 100 Mg PO DAILY Lorazepam 1 Mg Tablet 1 Mg PO TID PRN PRN Nitrostat (Nitroglycerin) 0.4 Mg Tab.subl 0.4 Mg SL PRN Q5MIN PRN May Repeat x 3 doses, Notify PCP if Chest pain is unresolved Ventolin Hfa Inhaler (Albuterol Sulfate) 18 Gm Hfa.aer.ad 2 Puff IH PRN Q4HRS PRN Ranitidine Hcl 150 Mg Capsule 150 Mg PO BIDBFRMEAL Klor-Con Sprinkle (Potassium Chloride) 10 Meq Capsule.er 10 Meq PO DAILY Torsemide 20 Mg Tablet 20 Mg PO DAILY Norvasc (Amlodipine Besylate) 2.5 Mg Tablet 2.5 Mg PO DAILY Namenda (Memantine Hcl) 10 Mg Tablet 10 Mg PO BID Carvedilol 12.5 Mg Tablet 12.5 Mg PO BID Lisinopril 20 Mg Tablet 20 Mg PO BID Melatonin 3 Mg Tablet 3 Mg PO QHS Aricept (Donepezil Hcl) 10 Mg Tablet 10 Mg PO QHS WOO GALINDO MD January 18, 2017 19:39
[2017-01-19] MEDS: LEVOTHYROXINE 25 MCG TABLET. PO SCH (05:21)
[2017-01-19 06:17] VITALS: BP 161/89
[2017-01-19 06:54] LABS: BASO # 0.1 x10^3/uL (0.0-0.2); BASO % 1 % (0-3); EOS # 0.1 x10^3/uL (0.0-0.7); EOS % 2 % (0-3); HEMATOCRIT 38.2 % (39.0-53.0); HEMOGLOBIN 12.9 g/dL (13.0-17.5); LYMPH % 30 % (24-48); MEAN CORPUSCULAR HEMOGLOBIN 29 pg (25-35); MEAN CORPUSCULAR HGB CONC 34 g/dL (31-37); MEAN CORPUSCULAR VOLUME 84 fL (79-100); MONO # 0.5 x10^3/uL (0.0-1.1); MONO % 8 % (0-9); NEUT # 3.9 x10^3uL (1.8-7.7); NEUT % 59 % (31-73); PLATELET COUNT 161 x10^3/uL (140-400); RED BLOOD COUNT 4.55 x10^6/uL (4.30-5.70); WHITE BLOOD COUNT 6.6 x10^3/uL (4.0-11.0)
[2017-01-19 07:14] LABS: ALBUMIN 3.6 g/dL (3.4-5.0); ALK PHOS 78 U/L (46-116); ALT (SGPT) 24 U/L (16-63); ANION GAP 8 (6-14); AST (SGOT) 21 U/L (15-37); BLOOD UREA NITROGEN 22 mg/dL (8-26); BUN/CREATININE RATIO 20 (6-20); CALCIUM 9.1 mg/dL (8.5-10.1); CARBON DIOXIDE 31 mmol/L (21-32); CHLORIDE 109 mmol/L (98-107); CREATININE 1.1 mg/dL (0.7-1.3); GFR 64.6; GLUCOSE 86 mg/dL (70-99); SODIUM 148 mmol/L (136-145); TOTAL BILIRUBIN 0.5 mg/dL (0.2-1.0); TOTAL PROTEIN 7.2 g/dL (6.4-8.2)
[2017-01-19 07:17] LABS: VAL ACID 41 mcg/mL (50-100)
[2017-01-19] MEDS: MEMANTINE 10 MG TABLET. PO SCH ×2 (07:58→19:59)
[2017-01-19] MEDS: POTASSIUM CHLORIDE 10 MEQ CAPSULE.ER. PO SCH (07:58)
[2017-01-19] MEDS: QUEtiapine 25 MG TABLET. PO SCH ×3 (07:58→19:59)
[2017-01-19] MEDS: LISINOPRIL 20 MG TABLET PO SCH ×2 (07:59→19:58)
[2017-01-19] MEDS: FAMOTIDINE 20 MG TABLET PO SCH ×2 (07:59→17:23)
[2017-01-19] MEDS: busPIRone 5 MG TABLET. PO SCH ×3 (07:59→19:58)
[2017-01-19] MEDS: SERTRALINE 100 MG TABLET. PO SCH (07:59)
[2017-01-19] MEDS: amLODIPine BESYLATE 5 MG TABLET PO SCH (08:00)
[2017-01-19] MEDS: CARVEDILOL 12.5 MG TABLET PO SCH ×2 (08:00→17:23)
[2017-01-19] MEDS: DIVALPROEX 125 MG CAP.SPRINK PO SCH ×3 (08:01→19:59)
[2017-01-19] MEDS: TORSEMIDE 20 MG TABLET. PO SCH (08:02)
--- NOTE | 2017-01-19 11:43 | PN ---
DATE: 01/17/2017 PSYCHIATRIC PROGRESS NOTE This is late entry of 01/17/2017, covers elements not covered in my initial note. SUBJECIVE: The patient remains confused, exit seeking, received Zyprexa x 1 per nursing report. REVIEW OF SYSTEMS: No CV, , pulmonary, eye, ENT system symptoms on review. Reliability poor. MENTAL STATUS EXAMINATION: Oriented to himself. Insight, judgment, recent and remote memory, attention, concentration, fund of knowledge poor, consistent with his diagnosis mentioned in my initial note. PLAN: Continue current psychotropics, adjust further as clinically indicated, current regimen mentioned in my initial note. MAN Frederick GALINDO MD DR: JOCELYN/rhea JOB#: [id number] / [id number]
--- NOTE | 2017-01-19 11:52 | PN ---
DATE: 01/18/2017 PSYCHIATRIC PROGRESS NOTE This is late entry of 01/18/2017, covers elements not covered in my initial note. SUBJECTIVE: Per nursing report, the patient remains confused. His sister visited and said he looked better. Today, he has been exit seeking, received Zyprexa x 1. REVIEW OF SYSTEMS: No CV, , pulmonary, eye, ENT system symptoms on review. Reliability poor. MENTAL STATUS EXAMINATION: Oriented to himself. Insight, judgment, recent and remote memory, attention, concentration, fund of knowledge poor, consistent with his diagnosis mentioned in my initial note. PLAN: Continue psychotropics mentioned in my initial note, adjust further as clinically indicated. MAN Frederick GALINDO MD DR: JOCELYN/rhea JOB#: [id number] / [id number]
[2017-01-19 16:44] VITALS: BP 156/75
[2017-01-19] MEDS: PRENATAL MULTIVITAMIN TABLET. PO SCH (17:23)
--- NOTE | 2017-01-19 19:53 | PDOC ---
Exam Guru Demential Exam: Guru Note: Please also refer to the separate dictated note~for this date of service dictated separately.~Patient seen individually. Discussed the patient with Nursing staff reviewed the chart.~Reviewed interim history and current functioning. Reviewed vital signs,~Labs/ Radiology~and current medications noted below. Continue current treatment with the changes noted in the dictated addendum note Assessment: Vital Signs: Vital Signs Date Time Temp Pulse Resp B/P (MAP) Pulse Ox O2 Delivery O2 Flow Rate FiO2 01/19/17 17:23 66 156/75 01/19/17 16:44 97.3 18 98 Room Air I&O Intake and Output 01/19/17 07:00 Intake Total 840 ml Balance 840 ml Intake Oral 840 ml Labs: Laboratory Tests Test 01/19/17 06:15 White Blood Count 6.6 x10^3/uL (4.0-11.0) Red Blood Count 4.55 x10^6/uL (4.30-5.70) Hemoglobin 12.9 g/dL (13.0-17.5) L Hematocrit 38.2 % (39.0-53.0) L Mean Corpuscular Volume 84 fL (79-100) Mean Corpuscular Hemoglobin 29 pg (25-35) Mean Corpuscular Hemoglobin Concent 34 g/dL (31-37) Red Cell Distribution Width 14.0 % (11.5-14.5) Platelet Count 161 x10^3/uL (140-400) Neutrophils (%) (Auto) 59 % (31-73) Lymphocytes (%) (Auto) 30 % (24-48) Monocytes (%) (Auto) 8 % (0-9) Eosinophils (%) (Auto) 2 % (0-3) Basophils (%) (Auto) 1 % (0-3) Neutrophils # (Auto) 3.9 x10^3uL (1.8-7.7) Lymphocytes # (Auto) 2.0 x10^3/uL (1.0-4.8) Monocytes # (Auto) 0.5 x10^3/uL (0.0-1.1) Eosinophils # (Auto) 0.1 x10^3/uL (0.0-0.7) Basophils # (Auto) 0.1 x10^3/uL (0.0-0.2) Sodium Level 148 mmol/L (136-145) H Potassium Level 4.0 mmol/L (3.5-5.1) Chloride Level 109 mmol/L (98-107) H Carbon Dioxide Level 31 mmol/L (21-32) Anion Gap 8 (6-14) Blood Urea Nitrogen 22 mg/dL (8-26) Creatinine 1.1 mg/dL (0.7-1.3) Estimated GFR (Cockcroft-Gault) 64.6 BUN/Creatinine Ratio 20 (6-20) Glucose Level 86 mg/dL (70-99) Calcium Level 9.1 mg/dL (8.5-10.1) Total Bilirubin 0.5 mg/dL (0.2-1.0) Aspartate Amino Transferase (AST) 21 U/L (15-37) Alanine Aminotransferase (ALT) 24 U/L (16-63) Alkaline Phosphatase 78 U/L (46-116) Total Protein 7.2 g/dL (6.4-8.2) Albumin 3.6 g/dL (3.4-5.0) Albumin/Globulin Ratio 1.0 (1.0-1.7) Valproic Acid Level 41 mcg/mL (50-100) L Valproic Acid Last Dose Date 01/18/2017 Valproic Acid Last Dose Time 2100 Current Medications: Meds: Current Medications Acetaminophen (Tylenol) 650 mg PRN Q6HRS PRN PO MILD PAIN / TEMP Last administered on 01/04/17 10:52; Start 12/28/16 at 21:15 Multi-Ingredient Ointment (Analgesic [place]) 1 baldo PRN QID PRN TP MUSCLE PAIN; Start 12/28/16 at 21:15 Al Hydroxide/Mg Hydroxide (Mylanta Plus Xs) 15 ml PRN AFTMEALHC PRN PO DYSPEPSIA; Start 12/28/16 at 21:15 Magnesium Hydroxide (Milk Of Magnesia) 2,400 mg PRN QHS PRN PO CONSTIPATION; Start 12/28/16 at 21:15 Aripiprazole (Abilify) 5 mg QHS PO Last administered on 12/28/16 22:15; Start 12/28/16 at 22:00; Stop 12/29/16 at 19:06; Status DC Donepezil HCl (Aricept) 10 mg QHS PO Last administered on 01/18/17 18:19; Start 12/28/16 at 22:00 Lorazepam (Ativan) 1 mg TID PRN PRN PO ANXIETY / AGITATION Last administered on 01/12/17 22:16; Start 12/28/16 at 21:15 Melatonin 3 mg QHS PO Last administered on 01/18/17 18:19; Start 12/28/16 at 22:00 Memantine (Namenda) 10 mg BID PO Last administered on 01/19/17 07:58; Start at 22:00 Sertraline HCl (Zoloft) 100 mg DAILY PO Last administered on 01/19/17 07:59; Start 12/29/16 at 09:00 Albuterol Sulfate (Ventolin Hfa) 2 puff PRN Q4HRS PRN IH SHORTNESS OF BREATH; Start 12/28/16 at 21:15; Status UNV Amlodipine Besylate (Norvasc) 2.5 mg DAILY PO Last administered on 01/02/17 07: 59; Start 12/29/16 at 09:00; Stop 01/02/17 at 13:01; Status DC Carvedilol (Coreg) 12.5 mg BIDWMEALS PO Last administered on 01/19/17 17:23; Start 12/29/16 at 08:00 Lisinopril (Prinivil) 20 mg BID PO Last administered on 01/19/17 07:59; Start 12/29/16 at 09:00 Nitroglycerin (Nitrostat) 0.4 mg PRN Q5MIN PRN SL CHEST PAIN; Start 12/28/16 at 21:15 Potassium Chloride (Micro-K) 10 meq DAILY PO Last administered on 01/19/17 07: 58; Start 12/29/16 at 09:00 Torsemide (Demadex) 20 mg DAILY PO Last administered on 01/19/17 08:02; Start 12/29/16 at 09:00 Famotidine (Pepcid) 20 mg BIDBFRMEAL PO Last administered on 01/19/17 17:23; Start 12/28/16 at 22:00 Albuterol Sulfate (Ventolin) 2.5 mg PRN Q4HRS PRN NEB SHORTNESS OF BREATH; Start 12/28/16 at 21:30 Quetiapine Fumarate (SEROquel) 12.5 mg BID PO Last administered on 01/05/17 08: 03; Start 12/29/16 at 21:00; Stop 01/05/17 at 18:34; Status DC Prenat Multivit/ [place]/Iron/Folic Ac (Multivitamin ) 1 tab DAILYBFRSUP PO Last administered on 01/19/17 17:23; Start 12/30/16 at 17:00 Vitamin D (Vitamin D3) 50,000 unit WEEKLY PO ; Start 12/30/16 at 12:00; Stop 12/30 at 12:10; Status DC Cyanocobalamin (Vitamin B-12) 1,000 mcg [id number] IM Last administered on 13:32; Start 12/30/16 at 12:30 Vitamin D (Vitamin D3) 50,000 unit WEEKLY PO Last administered on 01/13/17 07: 56; Start 12/30/16 at 12:30 Levothyroxine Sodium (Synthroid) 25 mcg DAILY07 PO Last administered on 05:21; Start 12/31/16 at 07:00 Atorvastatin Calcium (Lipitor) 20 mg QHS PO Last administered on 01/18/17 18: 20; Start 12/30/16 at 21:00 Mirtazapine (Remeron) 7.5 mg QHS PO Last administered on 01/12/17 19:25; Start 01/01/17 at 21:00; Stop 01/13/17 at 18:06; Status DC Amlodipine Besylate (Norvasc) 5 mg DAILY PO Last administered on 01/19/17 08: 00; Start 01/03/17 at 09:00 Quetiapine Fumarate (SEROquel) 12.5 mg TID PO Last administered on 01/07/17 14 :28; Start 01/05/17 at 21:00; Stop 01/07/17 at 18:32; Status DC Quetiapine Fumarate (SEROquel) 12.5 mg QID PO Last administered on 01/08/17 10 :27; Start 01/07/17 at 21:00; Stop 01/08/17 at 10:42; Status DC Quetiapine Fumarate (SEROquel) 25 mg TID PO Last administered on 01/19/17 11: 47; Start 01/08/17 at 14:00 Divalproex Sodium (Depakote Sprinkles) 125 mg BID PO Last administered on 09:10; Start 01/08/17 at 21:00; Stop 01/11/17 at 18:08; Status DC Olanzapine (Zyprexa Zydis) 2.5 mg PRN Q2HR PRN PO PSYCHOSIS/AGITAION Last administered on 01/19/17 12:00; Start 01/10/17 at 23:00 Divalproex Sodium (Depakote Sprinkles) 125 mg TID PO Last administered on 12:23; Start 01/11/17 at 21:00; Stop 01/16/17 at 18:52; Status DC Mirtazapine (Remeron) 15 mg QHS PO Last administered on 01/18/17 18:21; Start 01/13/17 at 21:00 Buspirone HCl (Buspar) 5 mg BID PO Last administered on 01/15/17 08:48; Start 01/13/17 at 21:00; Stop 01/15/17 at 10:18; Status DC Buspirone HCl (Buspar) 5 mg TID PO Last administered on 01/19/17 11:47; Start 01/15/17 at 14:00 Divalproex Sodium (Depakote Sprinkles) 250 mg BID PO Last administered on 08:01; Start 01/16/17 at 21:00; Stop 01/19/17 at 18:21; Status DC Divalproex Sodium (Depakote Sprinkles) 125 mg DAILY@1400 PO Last administered on 01/19/17 11:47; Start 01/17/17 at 14:00; Stop 01/19/17 at 18:21; Status DC Divalproex Sodium (Depakote Sprinkles) 250 mg TID PO ; Start 01/19/17 at 21:00 Active Scripts Active Reported Abilify (Aripiprazole) 5 Mg Tablet 5 Mg PO QHS Zoloft (Sertraline Hcl) 100 Mg Tablet 100 Mg PO DAILY Lorazepam 1 Mg Tablet 1 Mg PO TID PRN PRN Nitrostat (Nitroglycerin) 0.4 Mg Tab.subl 0.4 Mg SL PRN Q5MIN PRN May Repeat x 3 doses, Notify PCP if Chest pain is unresolved Ventolin Hfa Inhaler (Albuterol Sulfate) 18 Gm Hfa.aer.ad 2 Puff IH PRN Q4HRS PRN Ranitidine Hcl 150 Mg Capsule 150 Mg PO BIDBFRMEAL Klor-Con Sprinkle (Potassium Chloride) 10 Meq Capsule.er 10 Meq PO DAILY Torsemide 20 Mg Tablet 20 Mg PO DAILY Norvasc (Amlodipine Besylate) 2.5 Mg Tablet 2.5 Mg PO DAILY Namenda (Memantine Hcl) 10 Mg Tablet 10 Mg PO BID Carvedilol 12.5 Mg Tablet 12.5 Mg PO BID Lisinopril 20 Mg Tablet 20 Mg PO BID Melatonin 3 Mg Tablet 3 Mg PO QHS Aricept (Donepezil Hcl) 10 Mg Tablet 10 Mg PO QHS WOO GALINDO MD January 19, 2017 19:53
[2017-01-19] MEDS: DONEPEZIL HCL 10 MG TABLET PO SCH (19:58)
[2017-01-19] MEDS: MELATONIN 3 MG TABLET PO SCH (19:58)
[2017-01-19] MEDS: MIRTAZAPINE 15 MG TABLET PO SCH (19:58)
[2017-01-19] MEDS: ATORVASTATIN CALCIUM 20 MG TABLET PO SCH (19:59)
[2017-01-20] MEDS: LEVOTHYROXINE 25 MCG TABLET. PO SCH (04:57)
[2017-01-20 06:09] VITALS: BP 138/93
--- NOTE | 2017-01-20 07:22 | PN ---
DATE: 01/16/2017 SUBJECTIVE: This is a late entry 01/16/2017 covers elements not covered in my initial note. The patient has been confused, exit seeking, and got Zyprexa p.r.n., and tearful at times "I'm crazy." He states he can get out of here confused ___. He took a shower with the assistance of his sister exit seeking the previous evening. REVIEW OF SYSTEMS: No CV, , pulmonary, eye, or ENT system symptoms on review. Reliability poor. MENTAL STATUS EXAM: Oriented to himself. Insight, judgment, recent and remote memory, attention, concentration, fund of knowledge poor, consistent with his diagnosis mentioned in my initial note. PLAN: Continue current psychotropics. Increase Depakote to 250 a.m. and at bedtime and 125 in the afternoon. Check labs level in 3 days. Adjust further as clinically indicated. WOO GALINDO MD DR: JOCELYN/rhea JOB#: [id number] / [id number]
[2017-01-20] MEDS: CHOLECALCIFEROL (VITAMIN D3) 50,000 UNIT CAPSULE PO SCH (09:21)
[2017-01-20] MEDS: DIVALPROEX 125 MG CAP.SPRINK PO SCH ×3 (09:21→19:50)
[2017-01-20] MEDS: TORSEMIDE 20 MG TABLET. PO SCH (09:22)
[2017-01-20] MEDS: busPIRone 5 MG TABLET. PO SCH ×3 (09:22→19:50)
[2017-01-20] MEDS: FAMOTIDINE 20 MG TABLET PO SCH ×2 (09:22→17:43)
[2017-01-20] MEDS: QUEtiapine 25 MG TABLET. PO SCH ×3 (09:22→19:50)
[2017-01-20] MEDS: POTASSIUM CHLORIDE 10 MEQ CAPSULE.ER. PO SCH (09:22)
[2017-01-20] MEDS: SERTRALINE 100 MG TABLET. PO SCH (09:22)
[2017-01-20] MEDS: LISINOPRIL 20 MG TABLET PO SCH ×2 (09:22→19:51)
[2017-01-20] MEDS: MEMANTINE 10 MG TABLET. PO SCH ×2 (09:23→19:50)
[2017-01-20] MEDS: amLODIPine BESYLATE 5 MG TABLET PO SCH (09:23)
[2017-01-20] MEDS: CARVEDILOL 12.5 MG TABLET PO SCH ×2 (09:23→17:43)
[2017-01-20 16:21] VITALS: BP 139/64
[2017-01-20] MEDS: PRENATAL MULTIVITAMIN TABLET. PO SCH (17:43)
[2017-01-20] MEDS: DONEPEZIL HCL 10 MG TABLET PO SCH (19:50)
[2017-01-20] MEDS: MIRTAZAPINE 15 MG TABLET PO SCH (19:50)
[2017-01-20] MEDS: ATORVASTATIN CALCIUM 20 MG TABLET PO SCH (19:50)
[2017-01-20] MEDS: MELATONIN 3 MG TABLET PO SCH (19:51)
--- NOTE | 2017-01-20 21:01 | PDOC ---
Exam Guru Demential Exam: Guru Note: Please also refer to the separate dictated note~for this date of service dictated separately.~Patient seen individually. Discussed the patient with Nursing staff reviewed the chart.~Reviewed interim history and current functioning. Reviewed vital signs,~Labs/ Radiology~and current medications noted below. Continue current treatment with the changes noted in the dictated addendum note Assessment: Vital Signs: Vital Signs Date Time Temp Pulse Resp B/P (MAP) Pulse Ox O2 Delivery O2 Flow Rate FiO2 01/20/17 19:51 66 139/64 01/20/17 16:21 97.8 20 100 01/19/17 16:44 Room Air I&O Intake and Output 01/20/17 07:00 Intake Total 1080 ml Balance 1080 ml Intake Oral 1080 ml Current Medications: Meds: Current Medications Acetaminophen (Tylenol) 650 mg PRN Q6HRS PRN PO MILD PAIN / TEMP Last administered on 01/04/17 10:52; Start 12/28/16 at 21:15 Multi-Ingredient Ointment (Analgesic [place]) 1 baldo PRN QID PRN TP MUSCLE PAIN; Start 12/28/16 at 21:15 Al Hydroxide/Mg Hydroxide (Mylanta Plus Xs) 15 ml PRN AFTMEALHC PRN PO DYSPEPSIA; Start 12/28/16 at 21:15 Magnesium Hydroxide (Milk Of Magnesia) 2,400 mg PRN QHS PRN PO CONSTIPATION; Start 12/28/16 at 21:15 Aripiprazole (Abilify) 5 mg QHS PO Last administered on 12/28/16 22:15; Start 12/28/16 at 22:00; Stop 12/29/16 at 19:06; Status DC Donepezil HCl (Aricept) 10 mg QHS PO Last administered on 01/20/17 19:50; Start 12/28/16 at 22:00 Lorazepam (Ativan) 1 mg TID PRN PRN PO ANXIETY / AGITATION Last administered on 01/12/17 22:16; Start 12/28/16 at 21:15 Melatonin 3 mg QHS PO Last administered on 01/20/17 19:51; Start 12/28/16 at 22:00 Memantine (Namenda) 10 mg BID PO Last administered on 01/20/17 19:50; Start at 22:00 Sertraline HCl (Zoloft) 100 mg DAILY PO Last administered on 01/20/17 09:22; Start 12/29/16 at 09:00 Albuterol Sulfate (Ventolin Hfa) 2 puff PRN Q4HRS PRN IH SHORTNESS OF BREATH; Start 12/28/16 at 21:15; Status UNV Amlodipine Besylate (Norvasc) 2.5 mg DAILY PO Last administered on 01/02/17 07: 59; Start 12/29/16 at 09:00; Stop 01/02/17 at 13:01; Status DC Carvedilol (Coreg) 12.5 mg BIDWMEALS PO Last administered on 01/20/17 17:43; Start 12/29/16 at 08:00 Lisinopril (Prinivil) 20 mg BID PO Last administered on 01/20/17 19:51; Start 12/29/16 at 09:00 Nitroglycerin (Nitrostat) 0.4 mg PRN Q5MIN PRN SL CHEST PAIN; Start 12/28/16 at 21:15 Potassium Chloride (Micro-K) 10 meq DAILY PO Last administered on 01/20/17 09: 22; Start 12/29/16 at 09:00 Torsemide (Demadex) 20 mg DAILY PO Last administered on 01/20/17 09:22; Start 12/29/16 at 09:00 Famotidine (Pepcid) 20 mg BIDBFRMEAL PO Last administered on 01/20/17 17:43; Start 12/28/16 at 22:00 Albuterol Sulfate (Ventolin) 2.5 mg PRN Q4HRS PRN NEB SHORTNESS OF BREATH; Start 12/28/16 at 21:30 Quetiapine Fumarate (SEROquel) 12.5 mg BID PO Last administered on 01/05/17 08: 03; Start 12/29/16 at 21:00; Stop 01/05/17 at 18:34; Status DC Prenat Multivit/ [place]/Iron/Folic Ac (Multivitamin ) 1 tab DAILYBFRSUP PO Last administered on 01/20/17 17:43; Start 12/30/16 at 17:00 Vitamin D (Vitamin D3) 50,000 unit WEEKLY PO ; Start 12/30/16 at 12:00; Stop 12/30 at 12:10; Status DC Cyanocobalamin (Vitamin B-12) 1,000 mcg [id number] IM Last administered on 13:32; Start 12/30/16 at 12:30 Vitamin D (Vitamin D3) 50,000 unit WEEKLY PO Last administered on 01/20/17 09: 21; Start 12/30/16 at 12:30 Levothyroxine Sodium (Synthroid) 25 mcg DAILY07 PO Last administered on 04:57; Start 12/31/16 at 07:00 Atorvastatin Calcium (Lipitor) 20 mg QHS PO Last administered on 01/20/17 19: 50; Start 12/30/16 at 21:00 Mirtazapine (Remeron) 7.5 mg QHS PO Last administered on 01/12/17 19:25; Start 01/01/17 at 21:00; Stop 01/13/17 at 18:06; Status DC Amlodipine Besylate (Norvasc) 5 mg DAILY PO Last administered on 01/20/17 09: 23; Start 01/03/17 at 09:00 Quetiapine Fumarate (SEROquel) 12.5 mg TID PO Last administered on 01/07/17 14 :28; Start 01/05/17 at 21:00; Stop 01/07/17 at 18:32; Status DC Quetiapine Fumarate (SEROquel) 12.5 mg QID PO Last administered on 01/08/17 10 :27; Start 01/07/17 at 21:00; Stop 01/08/17 at 10:42; Status DC Quetiapine Fumarate (SEROquel) 25 mg TID PO Last administered on 01/20/17 19: 50; Start 01/08/17 at 14:00 Divalproex Sodium (Depakote Sprinkles) 125 mg BID PO Last administered on 09:10; Start 01/08/17 at 21:00; Stop 01/11/17 at 18:08; Status DC Olanzapine (Zyprexa Zydis) 2.5 mg PRN Q2HR PRN PO PSYCHOSIS/AGITAION Last administered on 01/19/17 12:00; Start 01/10/17 at 23:00 Divalproex Sodium (Depakote Sprinkles) 125 mg TID PO Last administered on 12:23; Start 01/11/17 at 21:00; Stop 01/16/17 at 18:52; Status DC Mirtazapine (Remeron) 15 mg QHS PO Last administered on 01/20/17 19:50; Start 01/13/17 at 21:00 Buspirone HCl (Buspar) 5 mg BID PO Last administered on 01/15/17 08:48; Start 01/13/17 at 21:00; Stop 01/15/17 at 10:18; Status DC Buspirone HCl (Buspar) 5 mg TID PO Last administered on 01/20/17 19:50; Start 01/15/17 at 14:00 Divalproex Sodium (Depakote Sprinkles) 250 mg BID PO Last administered on 08:01; Start 01/16/17 at 21:00; Stop 01/19/17 at 18:21; Status DC Divalproex Sodium (Depakote Sprinkles) 125 mg DAILY@1400 PO Last administered on 01/19/17 11:47; Start 01/17/17 at 14:00; Stop 01/19/17 at 18:21; Status DC Divalproex Sodium (Depakote Sprinkles) 250 mg TID PO Last administered on 19:50; Start 01/19/17 at 21:00 Active Scripts Active Reported Abilify (Aripiprazole) 5 Mg Tablet 5 Mg PO QHS Zoloft (Sertraline Hcl) 100 Mg Tablet 100 Mg PO DAILY Lorazepam 1 Mg Tablet 1 Mg PO TID PRN PRN Nitrostat (Nitroglycerin) 0.4 Mg Tab.subl 0.4 Mg SL PRN Q5MIN PRN May Repeat x 3 doses, Notify PCP if Chest pain is unresolved Ventolin Hfa Inhaler (Albuterol Sulfate) 18 Gm Hfa.aer.ad 2 Puff IH PRN Q4HRS PRN Ranitidine Hcl 150 Mg Capsule 150 Mg PO BIDBFRMEAL Klor-Con Sprinkle (Potassium Chloride) 10 Meq Capsule.er 10 Meq PO DAILY Torsemide 20 Mg Tablet 20 Mg PO DAILY Norvasc (Amlodipine Besylate) 2.5 Mg Tablet 2.5 Mg PO DAILY Namenda (Memantine Hcl) 10 Mg Tablet 10 Mg PO BID Carvedilol 12.5 Mg Tablet 12.5 Mg PO BID Lisinopril 20 Mg Tablet 20 Mg PO BID Melatonin 3 Mg Tablet 3 Mg PO QHS Aricept (Donepezil Hcl) 10 Mg Tablet 10 Mg PO QHS WOO GALINDO MD January 20, 2017 21:01
--- NOTE | 2017-01-21 00:04 | PN ---
DATE: 01/19/2017 PSYCHIATRIC PROGRESS NOTE This is late entry of 01/19/2017, covers elements not covered in my initial note. SUBJECTIVE: The patient remains confused, wanders the hallways, needed Zyprexa p.r.n. in the evening, but redirects. REVIEW OF SYSTEMS: No CV, , pulmonary, eye, ENT system symptoms on review. Reliability poor. MENTAL STATUS EXAMINATION: Oriented to himself. Insight, judgment, recent and remote memory, attention, concentration, fund of knowledge poor, consistent with his diagnosis mentioned in my initial note. PLAN: Valproic acid level is 41, increase Depakote from 125 mg at 1400, 250 a.m. and at bedtime to 250 mg t.i.d. Check labs level in 3 days. Maintain rest of the psychotropics unchanged as noted in my initial note. MAN Frederick GALINDO MD DR: JOCELYN/rhea JOB#: [id number] / [id number]
[2017-01-21] MEDS ORDERED: ACET325T9 PO (01:33)
[2017-01-21] MEDS ORDERED: ATOR20TA PO (01:35)
[2017-01-21] MEDS ORDERED: CHOL500050 PO (01:38)
[2017-01-21] MEDS ORDERED: CYAN10002 IJ (01:41)
[2017-01-21] MEDS ORDERED: DIVA125C PO (01:44)
[2017-01-21] MEDS ORDERED: FAMO20TA5 PO (01:46)
[2017-01-21] MEDS ORDERED: LEVO25TA4 PO (01:47)
[2017-01-21] MEDS ORDERED: MAGN30OR PO (01:51)
[2017-01-21] MEDS ORDERED: MAGN2400 PO (01:54)
[2017-01-21] MEDS ORDERED: METH29OI TP (01:58)
[2017-01-21] MEDS ORDERED: MIRT15TA3 PO (02:01)
[2017-01-21] MEDS ORDERED: OLAN5TAB9 PO (02:07)
[2017-01-21] MEDS ORDERED: POTA10CA PO (02:11)
[2017-01-21] MEDS ORDERED: PREN1TAB58 PO (02:14)
[2017-01-21] MEDS ORDERED: QUET25TA5 PO (02:16)
[2017-01-21] MEDS ORDERED: BUSP5TAB PO (02:17)
[2017-01-21] MEDS: LEVOTHYROXINE 25 MCG TABLET. PO SCH (05:59)
[2017-01-21 06:02] VITALS: BP 199/75
[2017-01-21] MEDS: POTASSIUM CHLORIDE 10 MEQ CAPSULE.ER. PO SCH (09:00)
[2017-01-21] MEDS: SERTRALINE 100 MG TABLET. PO SCH (09:25)
[2017-01-21] MEDS: DIVALPROEX 125 MG CAP.SPRINK PO SCH ×2 (09:25→13:06)
[2017-01-21] MEDS: MEMANTINE 10 MG TABLET. PO SCH (09:25)
[2017-01-21] MEDS: FAMOTIDINE 20 MG TABLET PO SCH (09:26)
[2017-01-21] MEDS: busPIRone 5 MG TABLET. PO SCH ×2 (09:26→13:06)
[2017-01-21] MEDS: QUEtiapine 25 MG TABLET. PO SCH ×2 (09:26→13:06)
[2017-01-21] MEDS: CARVEDILOL 12.5 MG TABLET PO SCH (09:27)
[2017-01-21] MEDS: LISINOPRIL 20 MG TABLET PO SCH (09:27)
[2017-01-21 09:28] VITALS: BP 199/75
[2017-01-21] MEDS: amLODIPine BESYLATE 5 MG TABLET PO SCH (09:28)
[2017-01-21] MEDS: TORSEMIDE 20 MG TABLET. PO SCH (09:30)
--- NOTE | 2017-01-22 06:51 | PN ---
DATE: 01/20/2017 PSYCHIATRIC PROGRESS NOTE This is a late entry of 01/20/2017, covers elements not covered in my initial note. SUBJECTIVE: Overall, the patient remains confused, takes his medications whole. He has not been angry, aggressive, tends to wander in the hallway, redirects. REVIEW OF SYSTEMS: No CV, , pulmonary, eye, ENT system symptoms on review. Reliability poor. MENTAL STATUS EXAM: Oriented to himself. Insight, judgment, recent and remote memory, attention, concentration, fund of knowledge poor, consistent with his diagnosis mentioned in my initial note. PLAN: Continue current psychotropics mentioned in my initial note. Adjust further as clinically indicated. Valproic acid level is 41, slightly subtherapeutic, but clinically adequate for now. MAN Frederick GALINDO MD DR: JOCELYN/rhea JOB#: [id number] / [id number]
--- NOTE | 2017-01-23 22:46 | DS ---
DATE OF DISCHARGE: 01/21/2017 DISCHARGE SUMMARY/PSYCHIATRIC PROGRESS NOTE This late entry of 01/21/2017 covers elements not covered in my initial note. REASON FOR ADMISSION: Please refer to the admission history for details. Briefly, the patient is a 81-year-old male admitted from the [facility], referred by his primary care physician/psychiatrist on account of increasing confusion, delusions, believing is a female patient was his . He was refusing medications that he did not trust staff. He was combative with staff during medication administration and redirections. He was threatening to throw people out of the window, unmanageable, dangerous in his behaviors having failed outpatient psychiatric interventions. He was referred for inpatient stabilization. SIGNIFICANT FINDINGS AND CLINICAL COURSE: Following admission, the patient was seen daily individually by myself, followed medically per Dr. Khan/Dr. Betancourt. He is extremely confused, agitated, labile abrasive, aggressive initially. Adjustments were made in his psychotropics and he seemed to respond to a combination of Zoloft 100 mg a day, Aricept 10 mg a day, melatonin 3 mg at bedtime, Namenda 10 b.i.d., Ativan 1 t.i.d. p.r.n., Seroquel 25 t.i.d., Remeron 15 at bedtime, Depakote 250 mg t.i.d. with a level of 41. Even though level was subtherapeutic was clinically adequate. Zyprexa p.r.n., BuSpar 5 mg t.i.d. Prior to discharge on 01/21/2017, temperature 97.2, BP 199/75, pulse 62, respirations 16. REVIEW OF SYSTEMS: No CV, , eye, ENT or pulmonary system symptoms on review. Reliability poor. MENTAL STATUS EXAM: Oriented to himself. Insight, judgment, recent and remote memory, attention, concentration, fund of knowledge poor, consistent with his diagnosis. FINAL DIAGNOSES: Major neurocognitive disorder, Alzheimer, vascular with depression, delusion, behavioral disturbance; anxiety disorder, unspecified; impulse control disorder, unspecified. DISCHARGE MEDICATIONS: Please refer to the MRAD. DISCHARGE INSTRUCTIONS: [facility]. Time for discharge day management greater than 30 minutes. MAN Frederick GALINDO MD DR: Shaina JOB#: [id number] / [id number]
== END 2017-01-21 13:56 | DRG 884 ==
LOC: ER 17:38 → GEROPSY 20:07
PROVIDERS: ADMIT Psychiatry & Neurology Psychiatry; ATTEND Psychiatry & Neurology Psychiatry
DX: F01.51 Vascular dementia, unspecified severity, with behavioral disturbance (principal); F02.81 Dementia in other diseases classified elsewhere, unspecified severity, with behavioral disturbance; G30.9 Alzheimer's disease, unspecified; E02 Subclinical iodine-deficiency hypothyroidism; E61.1 Iron deficiency; E78.2 Mixed hyperlipidemia; F22 Delusional disorders; F32.9 Major depressive disorder, single episode, unspecified; F41.9 Anxiety disorder, unspecified; F63.9 Impulse disorder, unspecified; I10 Essential (primary) hypertension; I25.10 Atherosclerotic heart disease of native coronary artery without angina pectoris; I48.91 Unspecified atrial fibrillation; K21.9 Gastro-esophageal reflux disease without esophagitis; G47.00 Insomnia, unspecified; Z66 Do not resuscitate; Z79.899 Other long term (current) drug therapy; Z91.81 History of falling; Z95.1 Presence of aortocoronary bypass graft; Z88.6 Allergy status to analgesic agent
CPT/HCPCS: 36415; 80048; 80053; 80061; 80164; 81001; 82306; 82607; 83036; 83540; 83550; 83735; 84436; 84443; 84480; 84484; 85007; 85027; 86592; 86593; 93005; G0481; J3420; 92610; 99285-25